=== PATIENT | male | born 1970 | race Caucasian/White ===

== ENCOUNTER 2023-01-11 09:38 | Emergency (ER) | payer OTHER, SELFPAY ==
[2023-01-11 09:48] VITALS: BP 138/106; PULSE 86; RESP 18; TEMP 36.8; O2SAT 98; BMI 32.9
--- NOTE | 2023-01-11 09:59 | XR_ITS ---
The [address] [address] Patient Name: COLEEN Aguillon GILMAR MRN: [id number] date: 1970 Sex: M Assigned Patient Location: ER Current Patient Location: ER Accession/Order Number: [id number] Exam Date: 01/11/2023 10:03 Report Date: 01/11/2023 10:35 At the request of: LALO LAN Procedure: XR ribs LT min 3V w CXR1V EXAMINATION: XR ribs LT min 3V w CXR1V HISTORY: left ribs ; posterior left rib pain with deep inspiration since injury 6 days ago COMPARISON: No relevant comparison available. FINDINGS: LUNGS: No significant pulmonary parenchymal abnormalities. PLEURA: No pneumothorax, effusion, or pleural thickening. MEDIASTINUM: No visible mass or adenopathy. CARDIAC: No cardiomegaly or cardiac silhouette abnormality. RIBS: Mildly displaced lateral left ninth rib fracture and suspected nondisplaced lateral left 10th rib fracture. OTHER: Negative. XR/XR ribs LT min 3V w CXR1V IMPRESSION: 1. Acute, mildly displaced left ninth rib fracture and suspected nondisplaced 10th rib fracture. 2. No pneumothorax or pleural effusion. Electronically authenticated by: SCOUT BEARDEN Date: 01/11/2023 10:35
--- NOTE | 2023-01-11 10:02 | ED.GENADUL1 ---
HPI - General Adult General Chief complaint: Extremity Injury, Upper Stated complaint: BACK PAIN Time Seen by Provider: 01/11/23 09:52 Mode of arrival: walk-in Limitations: no limitations History of Present Illness HPI narrative: Patient is a 52-year-old male who is presenting to the Emergency Room with chief complaint of left lower lateral rib pain that occurred on Saturday, January 06. Patient is playing basketball, patient had slipped landing on a small cement planter. Patient fell to the ground. Patient denied his head. No headache or neck pain. Patient does have left lateral rib pain over ribs approximately 7-9. Patient has mild ecchymosis to the area. Patient's been having sharp pain since. Pain with deep inspiration. Patient took 40 mg of Motrin this morning, patient took several doses of Motrin at that occurred. Patient's intermittently been taking Motrin since. Patient has intermittently but not really used any ice. Patient does have a history of blood pressure and thyroid. Patient does not feel extremities short of breath, only pain when he takes a deep inspiration. No dull pain, nausea vomiting. No cough, no hemoptysis, no melena, hematochezia. No hematuria. . All systems are negative except as noted/marked. All systems reviewed and otherwise negative. . Nurses note and vital signs reviewed and patient is not hypoxic. General: The patient appears well and in no apparent distress. Patient is resting comfortably on cart. Patient is not toxic, lethargic, or listless Skin: Warm, dry, no pallor noted. There is no rash noted. No petechiae, purpura. Head: Normocephalic, atraumatic Eye: Normal conjunctiva, no drainage, EOMI. PERRL Ears, Nose, Mouth, and Throat: oral mucosa is moist. Nares patent. Mouth without vesicles. Cardiovascular: Regular Rate and Rhythm, no murmur, gallop, rub Respiratory: Patient is in no distress, no accessory muscle use, lungs are clear to auscultation, no wheezing, rales or rhonchi. Patient does have splinting, mild ecchymosis to the left lateral chest wall, over ribs approximately 7-9. Pinpoint pain. Patient does have reproducible left lateral chest wall pain with deep palpation to the left anterior and left posterior chest wall. Back: non-tender, no CVA tenderness bilaterally to percussion. No CT LS midline pain. GI: soft, no tenderness to palpation, no masses appreciated. No rebound, guarding, or rigidity noted. No flank pain bilateral, No distention Musculoskeletal: Patient has full range of motion of all of the extremities, no motor, sensory, or focal neurological deficits Neurological: A&O x3, normal speech Psychiatric: Cooperative Related Data Previous Rx's Medication Instructions Recorded hydrocodone 5 mg-acetaminophen 325 1 tab PO Q4H PRN pain #10 tabs 01/11/23 mg tablet Allergies Allergy/AdvReac Type Severity Reaction Status Date / Time No Known Drug Allergies Allergy Verified 01/11/23 09:46 PFSH PFSH Social History Smoking status: Current every day smoker Exam Constitutional Vital Signs, click to edit/add: Last Vital Signs Temp 98.2 F 01/11/23 09:48 Pulse 86 01/11/23 09:48 Resp 18 01/11/23 09:48 BP 138/106 H 01/11/23 09:48 Pulse Ox 98 01/11/23 09:48 O2 Del Method Room Air 01/11/23 09:48 Course Vital Signs Vital signs: Vital Signs Temperature 98.2 F 01/11/23 09:48 Pulse Rate 86 01/11/23 09:48 Respiratory Rate 18 01/11/23 09:48 Blood Pressure 138/106 H 01/11/23 09:48 Pulse Oximetry 98 01/11/23 09:48 Oxygen Delivery Method Room Air 01/11/23 09:48 Temperature 98.2 F 01/11/23 09:48 Pulse Rate 86 01/11/23 09:48 Respiratory Rate 18 01/11/23 09:48 Blood Pressure 138/106 H 01/11/23 09:48 Pulse Oximetry 98 01/11/23 09:48 Oxygen Delivery Method Room Air 01/11/23 09:48 Medical Decision Making MDM Narrative Medical decision making narrative: Patient's x-ray shows fracture to the 9th rib, possibly 10th for this well. Patient had ice applied. Patient took his own Tylenol Motrin in the Emergency Room. Patient was educated on using ice, incentive spirometer, and using Tylenol every 4 hours along with Motrin every 8 hours. Patient understands not to use Tylenol and [place] together. Patient understands [place] could cause constipation. Patient is aware that ribs take a few months to heal, and this will hurt another 3-4 weeks. No questions at discharge. Discharge Plan Discharge Chief Complaint: Extremity Injury, Upper Clinical Impression: Multiple rib fractures Patient Disposition: Home, Self-Care Condition: Fair Prescriptions / Home Meds: New hydrocodone-acetaminophen 5-325 mg tablet 1 tab PO Q4H PRN (Reason: pain) Qty: 10 0RF Instructions: How to Use an Incentive Spirometer (ED), Rib Fracture (ED) Additional Instructions: Follow directions Mr. Kendall. :} Use Tylenol 500?1000 milligrams every 4 hours as needed for pain. Next dose of Tylenol 3000 mg daily. Use Motrin 800 mg 3 times a day with food or drink every 8 hours. Continue to use ice 20 minutes on, 20 minutes off the next 1-2 weeks as needed for pain. Do not use heat. Use pain medication as needed, did not take the [place] pain medication with Tylenol, he will axially take too much Tylenol. Use incentive spirometer every hour while awake Follow-up with PCP Stand Alone Forms: Portal Instructions Referrals: AMIE WANG [Primary Care Provider] - 1 week
== END 2023-01-11 11:03 | disposition home or self-care (01) ==
PROVIDERS: Emergency Provider Emergency Medicine; PCP Family Medicine
DX: S22.42XA Multiple fractures of ribs, left side, initial encounter for closed fracture (principal); W01.198A Fall on same level from slipping, tripping and stumbling with subsequent striking against other object, initial encounter; Y93.67 Activity, basketball; F17.210 Nicotine dependence, cigarettes, uncomplicated
CPT/HCPCS: 71101; 99283

== ENCOUNTER 2023-02-18 15:40 | Outpatient (OUT) | payer OTHER, SELFPAY ==
[2023-02-20 04:07] LABS: Ceruloplasmin 25.8 mg/dL (16.0-31.0); Immunoglobulin G, Qn 1041 mg/dL (603-1613)
[2023-02-20 05:07] LABS: HCV Ab Non Reactive (Non Reactive)
[2023-02-20 06:09] LABS: HBsAg Screen Negative (Negative); Hep A Ab, Total Negative (Negative); Hep B Core Ab, IgM Negative (Negative); Hep B Core Ab, Tot Negative (Negative); Hepatitis B Surf Ab Quant <3.1 mIU/mL (Immunity>9.9)
[2023-02-20 12:09] LABS: ANA Direct Negative (Negative)
[2023-02-20 15:10] LABS: Actin (Smooth Muscle) Antibody 6 Units (0-19)
[2023-02-22 17:14] LABS: Alpha-1-Antitrypsin, Serum 139 mg/dL (101-187)
== END 2023-02-18 15:41 | disposition home or self-care (01) ==
LOC: LAB 15:41
PROVIDERS: PCP Family Medicine
DX: K75.81 Nonalcoholic steatohepatitis (NASH) (principal)
CPT/HCPCS: 36415; 81256; 82103; 82104; 82390; 82728; 82784; 83516; 86038; 86376; 86704; 86705; 86706; 86708; 86709; 86803; 87340

== ENCOUNTER 2023-09-30 14:21 | Outpatient (OUT) | payer OTHER, SELFPAY ==
--- NOTE | 2023-09-30 15:56 | P.CN_ITS ---
Consult Note: HPI Data of Consult Patient: new to practice Consult date: 09/30/23 Requesting Physician: Dominique Vo MD Primary Care Provider: AMIE WANG Consult Narrative Reason for consult: neck pain, headaches Narrative: 52yom who presents for evaluation. several years of neck pain and headaches. 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 engaged in >6 weeks of provider directed home exercises, with minimal relief. uses otc pain meds, as needed. cc:: CC: Dominique Vo MD Review of Systems ROS Status of ROS 10 or more systems reviewed and unremark able except as noted in history and below PFSH PFSH Social History Smoking status: Current every day smoker Meds Home Medications and Allergies Home Medications ?Medication ?Instructions ?Recorded ?Confirmed ?Type hydrocodone 5 mg-acetaminophen 325 1 tab PO Q4H PRN pain #10 tabs 01/11/23 Rx mg tablet Allergies Allergy/AdvReac Type Severity Reaction Status Date / Time No Known Drug Allergies Allergy Verified 01/11/23 09:46 Exam Narrative Exam Narrative: Psych-alert and oriented x 3.? Attentive and appropriate, constitutionally normal, displays normal mood and affect per situation.? There are no obvious deficits in memory, reasoning, or intellect.? Skin-no obvious rashes, bruising, or erythema noted to the patient's area of pain. Extremities-upper extremities are warm with minimal edema and palpable pulses. Cervical- tenderness to palpation noted in the cervical spine and paraspinal musculature.? Pain is elicited with extension, and lateral rotation of the cervical spine.? Range of motion is slightly diminished due to pain. Facet loading maneuvers are positive bilaterally.? Coordination remains intact.? Gait remains non-antalgic. Assessment and Plan Assessment and Plan (1) Cervical spondylosis: Plan 52yom who presents for evaluation. failed conservative measures, as noted. given worsening symptoms, will order cervical xr with consideration of cervical dmrs in future. meds reviewed, no changes. follow up after imaging.
== END 2023-09-30 14:22 | disposition home or self-care (01) ==
LOC: PM 14:22
PROVIDERS: PCP Family Medicine; Visit Provider Anesthesiology
DX: M47.812 Spondylosis without myelopathy or radiculopathy, cervical region (principal)
CPT/HCPCS: G0463

== ENCOUNTER 2023-10-04 14:56 | Outpatient (OUT) | payer OTHER, SELFPAY ==
--- NOTE | 2023-10-04 15:03 | XR_ITS ---
The [address] [address] Patient Name: COLEEN KNAPPTER MRN: [facility]:[id number] date: 1970 Sex: M Assigned Patient Location: [facility] Current Patient Location: Accession/Order Number: [id number] Exam Date: 10/04/2023 15:09 Report Date: 10/07/2023 07:03 At the request of: GISELA LARAVIJAYA Procedure: XR cervical spine 5V EXAMINATION: XR cervical spine 5V HISTORY: cervicalgia , chronic COMPARISON: XR C-spine 11/30/2020 FINDINGS: BONES: Osseous fusion of C3-4 and 5 vertebral bodies and posterior elements of C3-4. DISC SPACES: See above. No appreciable significant narrowing at remaining levels. PARASPINOUS: Negative. No paraspinous abnormality is seen. OTHER: Negative. XR/XR cervical spine 5V IMPRESSION: 1. Grossly stable chronic changes. No appreciable acute abnormality. Electronically authenticated by: SCOUT BEARDEN Date: 10/07/2023 07:03
== END 2023-10-04 14:57 | disposition home or self-care (01) ==
LOC: RAD 14:58
PROVIDERS: PCP Family Medicine; Visit Provider Anesthesiology
DX: M54.2 Cervicalgia (principal)
CPT/HCPCS: 72050

== ENCOUNTER 2023-10-16 14:23 | Outpatient (OUT) | payer OTHER, SELFPAY ==
--- NOTE | 2023-10-16 14:58 | P.CN_ITS ---
Consult Note: HPI Data of Consult Patient: known to practice within the last 3 years Consult date: 09/30/23 Requesting Physician: Marianne Head NP Primary Care Provider: AMIE WANG Consult Narrative Reason for consult: neck pain, headaches Narrative: 52yom who presents for evaluation. several years of neck pain and headaches. 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 engaged in >6 weeks of provider directed home exercises, with minimal relief. uses otc pain meds, as needed. most recent xray consistent with cervical facet arthropathy. patient denies numbness tingling radicular pain. Pain today 4/10, increasing to 10/10. cc:: CC: Marianne Head NP Review of Systems ROS Status of ROS 10 or more systems reviewed and unremark able except as noted in history and below PFSH PFSH Social History Smoking status: Current every day smoker Meds Home Medications and Allergies Home Medications ?Medication ?Instructions ?Recorded ?Confirmed ?Type levothyroxine 175 mcg capsule 175 mcg PO DAILY 09/30/23 09/30/23 History metoprolol succinate 25 mg 25 mg PO DAILY 09/30/23 09/30/23 History tablet,extended release 24 hr Allergies Allergy/AdvReac Type Severity Reaction Status Date / Time No Known Drug Allergies Allergy Verified 09/30/23 16:07 Exam Narrative Exam Narrative: Psych-alert and oriented x 3.? Attentive and appropriate, constitutionally normal, displays normal mood and affect per situation.? There are no obvious deficits in memory, reasoning, or intellect.? Skin-no obvious rashes, bruising, or erythema noted to the patient's area of pain. Extremities-upper extremities are warm with minimal edema and palpable pulses. Cervical- tenderness to palpation noted in the cervical spine and paraspinal mus culature.? Pain is elicited with extension, and lateral rotation of the cervical spine.? Range of motion is slightly diminished due to pain. Facet loading maneuvers are positive bilaterally.? Coordination remains intact.? Gait remains non-antalgic. Results Additional Findings Additional findings: If on a controlled substance or opioids, I have checked an [place] report on this patient and there are no aberrancies noted in the prescribing history.??If on a controlled substance or opioid a drug screen was completed and reviewed within the last year, and if there has not been a drug screen completed we ordered one today to monitor higher risk, state monitored pain medication use. As part of providing excellent, safe, comprehensive care, the following was completed at our patient's visit: 1. A medication reconciliation and review to ensure accurate knowledge of current/active medications, including asking our patients to inform us about any [id number] medications or herbal remedies/nutritional supplements/alternative remedies. 2. A review to specifically ensure our patients have had annual screening for screening for depression, screening for tobacco use, and screening for unhealthy alcohol use. For concerning screenings had a discussion with the patient, provided patient education, and recommended follow-up with primary care provider when appropriate. If patient noted with a risk of falling, they received education on strength, gait, and balance training to prevent future risk of falling. Assessment and Plan Assessment and Plan (1) Cervical spondylosis: Assessment and Plan: The patient has had over 3 months of moderate to severe neck and headache pain with functional impairment and inadequate response to conservative care including NSAIDS (unless there are contraindication such as concurrent blood thinners), multiple oral or topical pain medications, and home exercise program/physical therapy.? Patient has completed >6 weeks of guided home exercise program and/or formal physical therapy program without relief of their symptoms.? I have reviewed the imaging of the cervical spine and no red flags were identified.? The imaging reveals radiographic findings consistent with cervical spondylosis/facet arthropathy We discussed the risks and benefits of the procedure with the patient, and we are NOT planning on using sedation as outlined in the guidelines from Medicare unless there is a documented reason that sedation would be strongly recommended.?? ?The procedure will be completed with fluoroscopic guidance.? Plan bilateral C2-3 C3-4 facet medial branch block x2 working towards RFA f/u 1 week after each injection
== END 2023-10-16 14:24 | disposition home or self-care (01) ==
LOC: PM 14:25
PROVIDERS: PCP Family Medicine; Visit Provider Nurse Practitioner
DX: M47.812 Spondylosis without myelopathy or radiculopathy, cervical region (principal)
CPT/HCPCS: G0463

== ENCOUNTER 2023-11-11 08:34 | Day surgery (SDC) | payer OTHER, SELFPAY ==
[2023-11-11 08:49] VITALS: BP 146/86; PULSE 84; TEMP 36.7; O2SAT 99
[2023-11-11 09:14] VITALS: PULSE 89; O2SAT 95
[2023-11-11 09:15] VITALS: BP 163/83
[2023-11-11 09:16] VITALS: BP 158/91; PULSE 87; O2SAT 96
[2023-11-11] MEDS: LIDOCAINE HCL 2% PF 100 MG/5 ML VIAL INJ (09:17)
[2023-11-11] MEDS: BUPIVACAINE HCL 0.25% PF 25 MG/10 ML VIAL INJ (09:17)
--- NOTE | 2023-11-11 09:24 | W.PM.PROCNOT ---
Date of procedure: 11/11/23 Pre-op diagnosis: Cervical spondylosis Post-op diagnosis: same as pre-op Procedure: Procedure: Bilateral C2-3, 3-4 medial branch block Medications: Bupivacaine 0.25% 6cc The patient was seen and examined in the preoperative holding area.? The informed consent was obtained and placed on the chart.? The patient was brought to the medical procedure unit and placed in the prone position.? A timeout was completed verifying correct patient, procedure site, positioning, plan, and special equipment.? Using aseptic technique, the needle was placed at left C2.? Under direct fluoroscopic visualization, a Quincke tip needle was advanced to the midpoint of the waist of the articular pillar at the respective medial branch segment. The above-mentioned injectate was placed in a 1 mL aliquot proceeded by negative aspiration.? The needle was removed.? The procedure was completed at all left C3, 4. The same procedure, at the same levels, was then completed on the right side. Insertion site was covered.? Patient was taken to the postprocedural recovery area and monitored for an appropriate length of time before found suitable for discharge in the accompaniment of a responsible adult. Anesthesia: Local Surgeon: Dominique Vo Pathology: none sent Condition: stable Disposition: no change
== END 2023-11-11 09:28 | disposition home or self-care (01) ==
LOC: SURGOUT 08:35
PROVIDERS: PCP Family Medicine; Visit Provider Anesthesiology
DX: M47.812 Spondylosis without myelopathy or radiculopathy, cervical region (principal)
CPT/HCPCS: 64490; 64491

== ENCOUNTER 2023-11-20 15:06 | Outpatient (OUT) | payer OTHER, SELFPAY ==
--- NOTE | 2023-11-20 15:22 | P.CN_ITS ---
Consult Note: HPI Data of Consult Patient: known to practice within the last 3 years Consult date: 09/30/23 Requesting Physician: Marianne Head NP Primary Care Provider: AMIE WANG Consult Narrative Reason for consult: neck pain, headaches Narrative: 52yom who presents for evaluation. several years of neck pain and headaches. 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 engaged in >6 weeks of provider directed home exercises, with minimal relief. uses otc pain meds, as needed. most recent xray consistent with cervical facet arthropathy. patient denies numbness tingling radicular pain. Pain today 4/10, increasing to 10/10. Recently underwent bilateral C2-3 C3-4 MBB #1 with >80% improvement in pain and functional ability greater than 4 hours. cc:: CC: Marianne Head NP Review of Systems ROS Status of ROS 10 or more systems reviewed and unremark able except as noted in history and below Musculoskeletal Reports: neck pain PFSH PFSH Medical History Diverticulitis ?K57.92 - Diverticulitis of intestine, part unspecified, without perforation or abscess without bleeding (ICD-10) Surgical History H/O thyroidectomy ?E89.0 - Postprocedural hypothyroidism (ICD-10) Social History Smoking status: Current every day smoker Meds Home Medications and Allergies Home Medications ?Medication ?Instructions ?Recorded ?Confirmed ?Type levothyroxine 175 mcg capsule 175 mcg PO DAILY 09/30/23 11/11/23 History metoprolol succinate 25 mg 25 mg PO DAILY 09/30/23 11/11/23 History tablet,extended release 24 hr Allergies Allergy/AdvReac Type Severity Reaction Status Date / Time No Known Drug Allergies Allergy Verified 11/11/23 08:45 Exam Narrative Exam Narrative: Psych-alert and oriented x 3.? Attentive and appropriate, constitutionally normal, displays normal mood and affect per situation.? There are no obvious deficits in memory, reasoning, or intellect.? Skin-no obvious rashes, bruising, or erythema noted to the patient's area of pain. Extremities-upper extremities are warm with minimal edema and palpable pulses. Cervical- tenderness to palpation noted in the cervical spine and paraspinal musculature.? Pain is elicited with extension, and lateral rotation of the cervical spine.? Range of motion is slightly diminished due to pain. Facet loading maneuvers are positive bilaterally.? Coordination remains intact.? Gait remains non-antalgic. Constitutional Documenting provider has reviewed patient's vital signs: yes Common normals: no apparent distress, oriented x3, healthy appearing, alert and well nourished General appearance: cooperative HENMT Common normals: normocephalic, hearing grossly normal bilaterally and moist oral mucous membranes Head and scalp: normocephalic Eye Common normals: PERRL Pupil: PERRL Neck & C-Spine Common normals: full ROM General: normal visual inspection Chest Common normals: inspection of chest normal Respiratory Common normals: normal respiratory effort, no retractions and no use of accessory muscles Neuro Common normals: oriented x3, CN's II-XII intact bilaterally, moves all extremities, no focal motor deficits, no sensory deficits noted and deep tendon reflexes 2+ bilaterally Sensorium/orientation: alert Motor exam: strength 5/5 throughout and no movement abnormalities noted Psych Common normals: mental status grossly normal, thought process normal, cooperative, affect normal, speech normal and activity/motor behavior normal Speech: normal speech Thought process: normal thought process Results Additional Findings Additional findings: If on a controlled substance or opioids, I have checked an [place] report on this patient and there are no aberrancies noted in the prescribing history.??If on a controlled substance or opioid a drug screen was completed and reviewed within the last year, and if there has not been a drug screen completed we ordered one today to monitor higher risk, state monitored pain medication use. As part of providing excellent, safe, comprehensive care, the following was completed at our patient's visit: 1. A medication reconciliation and review to ensure accurate knowledge of current/active medications, including asking our patients to inform us about any doqa-nvp-[id number] medications or herbal remedies/nutritional supplements/alternative remedies. 2. A review to specifically ensure our patients have had annual screening for screening for depression, screening for tobacco use, and screening for unhealthy alcohol use. For concerning screenings had a discussion with the patient, provided patient education, and recommended follow-up with primary care provider when appropriate. If patient noted with a risk of falling, they received education on strength, gait, and balance training to prevent future risk of falling. Assessment and Plan Assessment and Plan (1) Cervical spondylosis: Assessment and Plan: The patient has had over 3 months of moderate to severe neck and headache pain with functional impairment and inadequate response to conservative care including NSAIDS (unless there are contraindication such as concurrent blood thinners), multiple oral or topical pain medications, and home exercise program/physical therapy.? Patient has completed >6 weeks of guided home exercise program and/or formal physical therapy program without relief of their symptoms.? I have reviewed the imaging of the cervical spine and no red flags were identified.? The imaging reveals radiographic findings consistent with cervical spondylosis/facet arthropathy We discussed the risks and benefits of the procedure with the patient, and we are NOT planning on using sedation as outlined in the guidelines from Medicare unless there is a documented reason that sedation would be strongly recommended.?? ?The procedure will be completed with fluoroscopic guidance.? Plan bilateral C2-3 C3-4 facet medial branch block x2 working towards RFA f/u after each injection
== END 2023-11-20 15:07 | disposition home or self-care (01) ==
PROVIDERS: PCP Family Medicine; Visit Provider Nurse Practitioner
DX: M47.812 Spondylosis without myelopathy or radiculopathy, cervical region (principal)
CPT/HCPCS: G0463

== ENCOUNTER 2023-12-16 07:09 | Day surgery (SDC) | payer OTHER, SELFPAY ==
--- OUTSIDE RECORDS SUMMARY | 2023-12-16 07:12 | XMS_ITS | CCD ---
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 Name Role Phone PEREZ ., DR ANA Singletary Admitting Unavailable ROSADO ., DR ANA Singletary Attending Unavailable ROSADO ., DR ANA Singletary Primary Care Unavailable ROSADO ., DR ANA Singletary Consulting Unavailable HARSHIL AVILES Consulting Unavailable ROSADO ., DR ANA Singletary Admitting Unavailable ROSADO ., DR ANA Singletary Attending Unavailable ROSADO ., DR ANA Singletary Primary Care Unavailable ROSADO ., DR ANA Singletary Consulting Unavailable ROSADO ., DR ANA Singletary Admitting Unavailable ROSADO ., DR ANA Singletary Attending Unavailable ROSADO ., DR ANA Singletary Primary Care Unavailable ROSADO ., DR ANA Singletary Consulting Unavailable Asaad Imad Unavailable MD Lory Akers Attending Provider MD Junior Sinclair Primary Care Provider [phone] Lory Akers Attending Unavailable Lory Akers Admitting Unavailable Junior Sinclair Primary Care Unavailable Tavo PRABHAKAR, Dominique Laughlin Attending Unavailable Tavo PRABHAKAR, Dominique Laughlin Attending Unavailable Génesis Voss Attending Unavailable Junior Sinclair Attending Unavailable Junior Sinclair Attending Unavailable Génesis Voss Attending Unavailable Génesis Voss Attending Unavailable Junior Sinclair Attending Unavailable Génesis Voss Attending Unavailable Junior Sinclair Attending Unavailable Sarah Beard Admitting Unavaila ble Sarah Beard Attending Unavaila ble Sarah Beard Referring Unavaila ble Junior Sinclair Admitting Unavailable Junior Sinclair Attending Unavailable Junior Sinclair Referring Unavailable Sarah Beard Attending Unavaila ble Sarah Beard Attending Unavaila ble Allergies Allergy Classification Reported Allergen(s) Allergy Type Date of Onset Reaction(s) Facility (1 source) OXcarbazepine; Translations: [OXcarbazepine] Drug Allergy [facility] Repository (1 source) Pollen; Translations: [Pollen] Propensity to adverse reactions (disorder) [facility] Repository (1 source) Sertraline; Translations: [Zoloft] Drug Allergy [facility] Repository Medications Current Medications Medication Drug Class(es) Dates Sig (Normalized) Sig (Original) ibuprofen 800 mg oral tablet (1 source) Nonsteroidal Anti-inflammatory Drug Start: 01-10-2019 take 800 mg by mouth three times daily Ibuprofen Active 800 MG PO Three times daily January 10, 2019 12:00am levothyroxine sodium 0.175 mg oral tablet (2 sources) l-Thyroxine Start: 01-10-2019 take 175 ug by mouth once daily Levothyroxine Active 175 MCG PO Daily January 10, 2019 12:00am metoprolol tartrate 25 mg oral tablet (1 source) beta-Adrenergic Magnolia take 1 tablet by mouth once daily Metoprolol Succinate ER 25 MG 1 tablet Orally Once a day Active Completed/Discontinued Medications Medication Drug Class(es) Dates Sig (Normalized) Sig (Original) aspirin 81 mg chewable tablet (1 source) Platelet Aggregation Inhibitor, Nonsteroidal Anti-inflammatory Drug take 1 tablet by mouth once daily Aspirin 81 MG 1 tablet Orally Once a day Not-Taking Problems Active Problems Problem Classification Problem Date Documented Date Episodic/Chronic Hepatitis (1 source) Nonalcoholic steatohepatitis (CAGLE); Translations: [CAGLE (nonalcoholic steatohepatitis)] Chronic Other injuries and conditions due to external causes (1 source) Minor head injury; Translations: [Unspecified injury of head, initial encounter] 01-10-2019 Episodic Other injuries and conditions due to external causes (1 source) Abrasion; Translations: [Other injury of unspecified body region, initial encounter] 01-10-2019 Episodic Other liver diseases (2 sources) Fatty (change of) liver, not elsewhere classified; Translations: [FATTY CHANGE LIVER NEC] Onset: 07-03-2022 Chronic Other liver diseases (1 source) Steatosis of liver; Translations: [Fatty (change of) liver, not elsewhere classified] Chronic Other liver diseases (1 source) Abnormal levels of other serum enzymes Episodic Unclassified (1 source) Nonalcoholic steatohepatitis (CAGLE); Translations: [Nonalcoholic steatohepatitis (CAGLE)] Onset: 02-21-2023 Past or Other Problems Problem Classification Problem Date Documented Da te Episodic/Chronic Other screening for suspected conditions (not mental disorders or infectious disease) (4 sources) Other specified abnormal findings of blood chemistry; Translations: [OTH SPEC ABNORMAL FINDINGS BLD CHEM] Onset: 06-29-2022 Episodic Results Test Name Value Interpretation Reference Range Facility Consultation Noteon 11-26-19 Consultation Note [id number]#1.00TIFF Normal [facility] Reminderson 11-14-2023 Reminders - From: Cipriano Bedolla To: [facility] - Reminders/Recalls; Sent: 11/14/2023 17:20:52 EDT Show up: 10/08/2026 17:20:00 EDT Subject: Ambulatory Reminder Due Date/Time: 10/31/2026 17:20:00 EDT Reminder/Recall Repeat colonoscopy in 3 years(2026) due to tubular adenoma > 10 mm Normal [facility] Consultation Noteon 11-11-19 Consultation Note [id number]#1.00TIFF Normal [facility] Consultation Note [id number]#1.00TIFF Normal [facility] Operative Reporton Operative Report [id number]#1.00TIFF Normal [facility] Postoperative Documentson Postoperative Documents [id number]#1.00TIFF Normal [facility] IntraOperative Documentson 0 11-06-2023 IntraOperative Documents [id number]#1.00TIFF Normal [facility] Consenton 11-05-2023 Consent [id number]#1.00TIFF Normal [facility] Discharge Instructionson Discharge Instructions [id number]#1.00TIFF Normal [facility] Consent for Treatmenton 10-09 Consent for Treatment [id number]#1.00TIFF Normal [facility] Discharge Instructionson Discharge Instructions ADARSH SCHAFER Pal :1970 Visit Date:11/01/2023 Inpatient Discharge Instructions Your Care Team Admitting Physician - Sarah Beard MD Referring Physician - Chirag PRABHAKAR, Sarah Barajas Reason for Your Visit CAGLE FATTY LIVER CHRONIC GERD Your Diagnosis Chronic GERD Colon cancer screening Tests Performed Pathology Tissue Exam -- Results Pending -- Please visit your patient portal for your results or contact your primary care physician. This Is Your Medications List levothyroxine (levothyroxine 175 mcg (0.175 mg) Tab) metoprolol (metoprolol 25 mg ER Tab) Procedure History Thyroidectomy (02/13/2018), Diverticulitis, Entire wisdom tooth, tongue and throat biopsy. Discharge Vitals Temperature (Temporal Artery) 36.3 ?C Heart Rate (Monitored) 79 Respiratory Rate 13 Blood Pressure 132/84 Height 182 cm Weight 94.3 kg What to do next Instructions From Your Doctor Event Name Event Result Discharge Activity Resume normal activities in 24 hours Discharge Restrictions No driving for 24 hrs Discharge Diet(s) Regular Call Your Doctor For Persistent or heavy bleeding Discharge Instructions Discharge Instructions Previously Scheduled Follow-Up Appointments Saturday 2:00 PM EDT Where: [facility] New Follow Up Appointments after Discharge Follow Up with Sarah Beard When: Comments: office will call for follow up Where: Timbo Solano, [facility] [address] [phone] Business (1) Medications What How Much When Instructions Next Dose Unchanged levothyroxine (levothyroxine 175 mcg (0.175 mg) Tab) 1 Tablets By Mouth Every day Unchanged metoprolol (metoprolol 25 mg ER Tab) 1 Tablets By Mouth Every day Test Results No qualifying data available. Allergies OXcarbazepine (Unknown) Pollen (Unknown) Zoloft (Unknown) Problems Ongoing - Any problem that you are currently receiving treatment for. Ankylosis Anxiety Cervical radiculopathy, chronic Diverticulitis Primary hypertension Psoriasis Seasonal allergies Sinusitis Steatosis, liver Thyroid disease Tinnitus of left ear Devices Implanted/Removed This Visit Notice: You have devices implanted this visit that may not be MRI compatible. Implanted Undefined Procedure Body Site Undefined CAUTERY ERBE UNIT 11/01/2023 CAUTERY ERBE UNIT 11/01/2023 Education Materials Upper Endoscopy, Adult, Care After After the procedure, it is common to have a sore throat. It is also common to have: ? Mild stomach pain or discomfort. ? Bloating. ? Nausea. Follow these instructions at home: The instructions below may help you care for yourself at home. Your health care provider may give you more instructions. If you have questions, ask your health care provider. ? If you were given a sedative during the procedure, it can affect you for several hours. Do not drive or operate machinery until your health care provider says that it is safe. ? If you will be going home right after the procedure, plan to have a responsible adult: ? Take you home from the hospital or clinic. You will not be allowed to drive. ? Care for you for the time you are told. ? Follow instructions from your health care provider about what you may eat and drink. ? Return to your normal activities as told by your health care provider. Ask your health care provider what activities are safe for you. ? Take dzkx-mcb-tzgyilo and prescription medicines only as told by your health care provider. Contact a health care provider if you: ? Have a sore throat that lasts longer than one day. ? Have trouble swallowing. ? Have a fever. Get help right away if you: ? Vomit blood or your vomit looks like coffee grounds. ? Have bloody, black, or tarry stools. ? Have a very bad sore throat or you cannot swallow. ? Have difficulty breathing or very bad pain in your chest or abdomen. These symptoms may be an emergency. Get help right away. Call 911. ? Do not wait to see if the symptoms will go away. ? Do not drive yourself to the hospital. Summary ? After the procedure, it is common to have a sore throat, mild stomach discomfort, bloating, and nausea. ? If you were given a sedative during the procedure, it can affect you for several hours. Do not drive until your health care provider says that it is safe. ? Follow instructions from your health care provider about what you may eat and drink. ? Return to your normal activities as told by your health care provider. This information is not intended to replace advice given to you by your health care provider. Make sure you discuss any questions you have with your health care provider. Document Revised: 09/05/2022 Document Reviewed: 09/05/2022 [employer] Patient Education ? 2022 [employer] Sinclair's Esophagus (more content not included)... Normal [facility] Comment on above: Result Comment: Elec tronically Signed By: Sherice WEST, Tanya\.br\Date and Time Signed: 11/01/23 10:36 EDT Endoscopic Procedure Report - Otheron 11-01-2023 Endoscopic Procedure Report - Other Patient: ADARSH SCHAFER Age: 53 years Sex: Male : 1970 Associated Diagnoses: None Author: Sarah Beard MD Pre-Procedure Procedure Date 11/01/2023 10:23:00 . Procedure Type: Colonoscopy with removal of tumor(s), polyp(s), or other lesion(s) by cold snare technique. Procedure provider Performed by Sarah Beard MD. Current history and physical Documented on chart. Thyroidectomy ([id number]) on 02/13/2018 at 47 Years. Entire wisdom tooth ([id number]). Diverticulitis surgery (256155317). tongue and throat biopsy.. Past Medical History No active or resolved past medical history items have been selected or recorded.. Family History Hypertension Father . Procedure History Thyroidectomy ([id number]) on 02/13/2018 at 47 Years. Entire wisdom tooth (445756190). Diverticulitis surgery (109544503). tongue and throat biopsy.. Colorectal neoplasm risk assessment Average risk. Informed Consent After discussing the rationale, risks and benefits, and alternatives to this procedure, the patient provided signed consent for the procedure. Pre-procedure diagnosis: Screening. Medications (Selected) Inpatient Medications Ordered Lactated Ringers IV Araseli 1000 mL 1,000 mL: 1,000 mL, IV, 100 mL/hr, Routine, Start date 11/01/23 9:21:00 EDT, 10 hour(s), Total volume (mL): 1,000, 94.3 kg, 2.18, m2 Sodium Chloride 0.9% IV Araseli 1000 mL 1,000 mL: 1,000 mL, IV, 20 mL/hr, Routine, Start date 11/01/23 6:48:00 EDT, 50 hour(s), Total volume (mL): 1,000 Prescriptions Prescribed levothyroxine 175 mcg (0.175 mg) Tab: 175 mcg = 1 tab(s), Oral, Daily, # 90 EA, Refills(s) 1, [id number] 158, cm, 08/29/23 7:21:00 EDT, Height/Length Dosing, 94.2, kg, 08/29/23 7:21:00 EDT, Weight Dosing metoprolol 25 mg ER Tab: 25 mg = 1 tab(s), Oral, Daily, # 90 tab(s), Refills(s) 1, Pharmacy: [facility]/pharmacy #[id number], 158, cm, 08/29/23 7:21:00 EDT, Height/Length Dosing, 94.2, kg, 08/29/23 7:21:00 EDT, Weight Dosing Reviewed. ASA Classification: Class II. . Monitoring: See anesthesia record. . Procedure The procedure was performed in the hospital. See anesthesia record for sedation given during procedure. The patient was positioned starting in the left lateral decubitus position. Endoscope type used was an adult-size. The endoscope was lubricated then introduced through the anus. The scope was advanced to the terminal ileum. No difficulties encountered during the procedure. The bowel preparation quality was adequate (see polyps greater than or equal to 6 millimeters). The patient tolerated the procedure well. Time to Cecum: 1 min Withdrawal time 22 min Last colonoscopy: none Findings 1. Small internal hemorrhoids 2. 1.5 sessile polyp in the transverse colon at the hepatic flexure, resected using EMR technique, injected 4.5 ml of Everlift and removed using hot snare. I used the tip of the hot snare to burned the edges. 2 clips were placed at the polypectomy site to prevent bleeding at the end of the procedure 3. 5 mm sessile polyp in the transverse colon at the splenic flexure, removed with cold snare completely and retrieved 4. 7 mm sessile polyp in the sigmoid colon, resected with cold snare completely and retrieved 4. Normal examined terminal ileum Images Procedure images: Rec1_hd_video_T09_ 29_13_910.jpg Rec1_hd_video_T_ 28_56_342.jpg Rec1_hd_video_T09_ 26_04_242.jpg Rec1_hd_video__ 24_43_972.jpg Rec1_hd_video__ 24_16_317.jpg Rec1_hd_video_T_ _01_066.jpg Rec1_hd_video_09_ 19_21_810.jpg Rec1_hd_video_09_ 19_18_072.jpg Rec1_hd_video_T09_ 17_56_036.jpg Rec1_hd_video_T09_ 16_52_673.jpg Rec1_hd_video_T09_ 16_47_723.jpg Rec1_hd_video_T09_ 14_18_188.jpg Rec1_hd_video_T09_ 11_53_944.jpg Rec1_hd_video_09_ _36_204.jpg Rec1_hd_video_09_ _29_223.jpg Rec1_hd_video__T09_ _21_998.jpg Rec1_hd_video_09_ _57_345.jpg Rec1_hd_video_T09_ _45_043.jpg Rec1_hd_video_09_ _21_315.jpg Rec1_hd_video_T09_ 09_07_279.jpg . Post-Procedure Complications: non (more content not included)... Normal [facility] Comment on above: Result Comment: Elec tronically Signed By: Chirag PRABHAKAR, Sarah Barajas\.br\Date and Time Signed: 11/01/23 10:25 EDT Other Comment: Sallie temple Attachment - attachment storage system not supported [id number] [facility]achment - attachment storage system not supported [id number] Can be [facility] Attachment - attachment storage system not supported [id number] Can be [facility] Attachment - attachment storage system not supported [id number] Can be [facility] Attachment - attachment storage system not supported [id number] Can be [facility] Attachment - attachment storage system not supported [id number] Can be [facility] Attachment - attachment storage system not supported [id number] Can be [facility] Attachment - attachment storage system not supported [id number] Can be [facility] Attachment - attachment storage system not supported [id number] Can be [facility] Attachment - attachment storage system not supported [id number] Can be [facility] Attachment - attachment storage system not supported [id number] Can be viewed in source systemMissing Attachment - attachment storage system not supported [id number] Can be viewed in source systemMissing Attachment - attachment storage system not supported [id number] Can be viewed in source systemMissing Attachment - attachment storage system not supported [id number] Can be viewed in source systemMissing Attachment - attachment storage system not supported [id number] Can be viewed in source systemMissing Attachment - attachment storage system not supported [id number] Can be viewed in source systemMissing Attachment - attachment storage system not supported [id number] Can be viewed in source systemMissing Attachment - attachment storage system not supported [id number] Can be viewed in source systemMissing Attachment - attachment storage system not supported [id number] Can be viewed in source systemMissing Attachment - attachment storage system not supported [id number] Can be viewed in source system Endoscopic Procedure Report - Other Patient: ADARSH SCHAFER Age: 53 years Sex: Male : 1970 Associated Diagnoses: None Author: Sarah Beard MD Pre-Procedure Procedure Date 11/01/2023 09:56:00 . Procedure Type: Esophagogastroduodenoscopy with biopsy. Procedure provider Performed by Sarah Beard MD. Current history and physical Documented on chart. Informed Consent After discussing the rationale, risks and benefits, and alternatives to this procedure, the patient provided signed consent for the procedure. Pre-procedure diagnosis: GERD. Medications Anticoagulant/antiplatelet None. ASA Classification: Class II. . Monitoring: See anesthesia record. . Procedure The procedure was performed in the hospital. See anesthesia record for sedation given during procedure. The patient was positioned starting in the left lateral decubitus position and with safety measures. Endoscope type used was an adult-size, introduced orally, advanced to the 3rd portion of the duodenum. No difficulty was encountered during the procedure. Views were excellent. The patient tolerated the procedure well. Findings 1. Esophageal landmarks identified, diaphragm at 42 cm, GE junction at 34 cm, 8 cm hiatal hernia 2. 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 Moderate patchy erythema in the antrum with minimal amount of old blood (hematin), random biopsies were taken to rule out H. pylori 4. Normal examined duodenum Images Procedure images: Rec1_hd_video_2023__T09_ 01_01_559.jpg Rec1_hd_video_2023__T08_ 58_32_819.jpg Rec1_hd_video_2023__T08_ 56_42_191.jpg Rec1_hd_video_2023__T08_ 56_22_059.jpg Rec1_hd_video_2023__T08_ 54_53_977.jpg Rec1_hd_video_2023__T08_ 54_47_322.jpg Rec1_hd_video_2023__T08_ 54_41_717.jpg Rec1_hd_video_2023__T08_ 54_24_874.jpg . Post-Procedure Complications: none. Estimated blood loss: minimal. Specimens: sent to pathology. Devices/ implants: none left in place. Impression and Plan 1. Esophageal landmarks identified, diaphragm at 42 cm, GE junction at 34 cm, 8 cm hiatal hernia 2. 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 Moderate patchy erythema in the antrum with minimal amount of old blood (hematin), random biopsies were taken to rule out H. pylori 4. Normal examined duodenum Recommendations: -Resume previous diet -Resume home medications -Await pathology results, follow in GI clinic in 1-2 after discharge Normal [facility] Comment on above: Result Comment: Elec tronically Signed By: Chirag PRABHAKAR, Sarah Barajas\.br\Date and Time Signed: 11/01/23 09:57 EDT Other Comment: Sallie temple Attachment - attachment storage system not supported [id number] Can be viewed in source systemMissing Attachment - attachment storage system not supported [id number] Can be viewed in source systemMissing Attachment - attachment storage system not supported [id number] Can be viewed in source systemMissing Attachment - attachment storage system not supported [id number] Can be viewed in source systemMissing Attachment - attachment storage system not supported [id number] Can be viewed in source systemMissing Attachment - attachment storage system not supported [id number] Can be viewed in source systemMissing Attachment - attachment storage system not supported [id number] Can be viewed in source systemMissing Attachment - attachment storage system not supported [id number] Can be viewed in source system Inpatient Patient Summaryon 11-01-2023 Inpatient Patient Summary [address] [address] [facility] Clinical Discharge Instructions PERSON INFORMATION Name: ADARSH SCHAFER [facility]#:[id number] PHYSICIANS Admitting Physician: Sarah Beard MD Attending Physician: Sarah Beard MD PCP: Junior Sinclair MD Discharge Diagnosis: Chronic GERD; Colon cancer screening Comment: PATIENT EDUCATION INFORMATION Instructions: Upper Endoscopy, Adult, Care After; Sniclair's Esophagus; Gastritis, Adult; Hiatal Hernia; Colonoscopy, Care After Surgery Salam (CUSTOM); Colon Polyps Medication Leaflets: Follow up: With: Address: When: Sarah Beard [address] [place] [address], [address], [place] [id number] [phone] Business (1) Comments: office will call for follow up Type Location Start [facility] 11/15/2023 2:00 PM 11/15/2023 2:20 PM Confirmed MEDICATION LIST Medications to Continue with No Changes Other Medications levothyroxine (levothyroxine 175 mcg (0.175 mg) Tab) 1 Tablets By Mouth every day. Refills: 1. metoprolol (metoprolol 25 mg ER Tab) 1 Tablets By Mouth every day. Refills: 1. Comment: Normal [facility] Main OR Intraoperative Recor don 11-01-2023 Main OR Intraoperative Record IntraOp Document Type FT Summary Primary Physician: Sarah Beard MD Finalized Date/Time: 11/01/23 14:12:04 Pt. Name: ADARSH SCHAFER Pal NicholsB./Sex: 1970 Male Med Rec #: [id number] Physician: Chirag PRABHAKAR, Sarah Barajas Financial #: [id number] Pt. Type: O Room/Bed: / Admit/Disch: 11/01/23 08:25:41 - Institution: Case Times FT Entry 1 Patient Times In Room 11/01/23 09:38:00 Out Room 11/01/23 10:23:00 Procedure Times Start 11/01/23 09:46:00 Stop 11/01/23 10:21:00 Anesthesia Times Start 11/01/23 09:38:00 Stop 11/01/23 10:23:00 Time at Cecum 11/01/23 09:59:00 Last Modified By: Kannan WEST, Isai Singletary 11/01/23 10:24:04 General Comments: 0955 EGD completed MSRN 0958 Colonoscopy started MSRN 11/01/23 Chart opened for charge review per Dany Brunson RN. [place] Case Attendance FT Entry 1 Entry 2 Entry 3 Case Attendee Pearl HENSLEY, Mook Brunner RN, Jayme Mark Role Performed Anesthesiologist Seed Buyer - Primary Staff - Other Cloth Washer Back Tender Time In 11/01/23 09:38:00 11/01/23 09:38:00 11/01/23 09:38:00 Time Out 11/01/23 10:23:00 11/01/23 10:23:00 11/01/23 10:23:00 Procedure EGD AND COLONOSCOPY(.) EGD AND COLONOSCOPY(.) EGD AND COLONOSCOPY(.) Comments Dr. Ochoa is supervising Last Modified By: Kannan WEST, Isai Brunner RN, Isai Brunner RN, Isai Singletary 11/01/23 10:24:05 11/01/23 10:24:05 11/01/23 10:24:05 Entry 4 Entry 5 Case Attendee Patricia CLAY, Joana Beard MD, Sarah Barajas Role Performed Scrub - Primary Surgeon - Primary Time In 11/01/23 09:38:00 11/01/23 09:38:00 Time Out 11/01/23 10:23:00 11/01/23 10:23:00 Procedure EGD AND COLONOSCOPY(.) EGD AND COLONOSCOPY(.) Comments Last Modified By: Isai Brunner RN, RN, Morgan E 11/01/23 10:24:05 11/01/23 10:24:05 Perioperative Protocols FT Pre-Care Text: Implements protective measures prior to operative or invasive procedure, confirms identity before the operative or invasive procedure, verifies operative procedure, surgical site, and laterality Entry 1 Procedure(s) EGD AND COLONOSCOPY(.) Patient Identity Birthday, ID Band Verified (select at Check, Patient least 2): Participation Consents / H and P Anesthesia Consent, Operative Site N/A Verified HandP, Surgery/Procedure Marking Verified Consent Surgical Site No Laterality Verified n/a Verified Procedure Verified Yes Correct Patient Yes Position Verified Availability Equipment, Medication Prep Dry n/a Verified (If Applicable) PreOp Antibiotic No Time Out Mook Monzon, Given Participants Isai Brunner RN, Sparks, Micala E, Patricia CLAY, Chirag Gaston MD, Sarah Barajas Time Out Complete 11/01/23 09:44:00 Outcomes Met? Yes Last Modified By: Isai Brunner RN 11/01/23 09:44:31 Post-Care Text: The patient is free from signs and symptoms of injury caused by extraneous objects Allergy Information FT Pre-Care Text: Verifies allergies Entry 1 Allergies Reviewed? Yes Allergies Reviewed Self/Patient With Outcomes Met? Yes Last Modified By: Isai Brunner RN 11/01/23 09:42:11 Post-Care Text: The patient received appropriate medication(s) safely administered during the perioperative period Surgical Procedures FT Entry 1 Procedure Description Procedure EGD AND COLONOSCOPY Modifiers . Surgeon Description EGD with barretts esophagus biopsy and gastric biopsy. Colonoscopy with transverse colon polypectomy using lifting (everlift), hot snare removal and hemoclip x2 applied to polypectomy site, transverse colon polypectomy using cold snare, sigmoid colon poly Primary Procedure Yes Primary Surgeon Chirag PRABHAKAR, Sarah Barajas Start 11/01/23 09:46:00 Stop 11/01/23 10:21:00 Anesthesia Type General Surgical Service Gastroenterology Wound Class 2 - Clean-Contaminated Last Modified By: Isai Brunner RN 11/01/23 10:22:13 General Comments: EGD with barretts esophagus biopsy and gastric biopsy. Colonoscopy with transverse colon polypectomy using lifting (everlift), hot snare removal and hemoclip x2 applied to polypectomy site, transverse colon polypectomy using cold snare, sigmoid colon polypectomy using cold snare General Case Data FT Pre-Care Text: Classifies surgical wound, implements aseptic technique, initiates traffic control Entry 1 Case Information OR ENDO 1 FT Case Level Level 2 Wound Class 2 - Clean-Contaminated Specialty Gastroenterology ASA Class 3 Preop Diagnosis CAGLE, Fatty liver, Postop Same As Preop No Chronic GERD, Colon cancer screening Postop Diagnosis EGD- Barretts Outcomes Met? Yes esophagus. 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 Normal [facility] Main OR PACU I Recordon 10-09 Main OR PACU I Record PACU Phase I Document Type FT Summary Primary Physician: Chirag PRABHAKAR, Sarah Barajas Finalized Date/Time: 11/01/23 11:32:26 Pt. Name: ADARSH SCHAFER/Sex: 1970 Male Med Rec #: [id number] Physician: Sarah Beard MD Financial #: [id number] Pt. Type: O Room/Bed: / Admit/Disch: 11/01/23 08:25:41 - Institution: Case Times PACU I FT Pre-Care Text: Identifies barriers to communication and implements measures to provide psychological support Develops individualized plan of care, and ensures continuity of care Maintains patient's dignity and privacy, and maintains patient confidentiality Identifies and reports philosophical, cultural, and spiritual beliefs and values Identifies individual values and wishes concerning care Implements aseptic technique, and administers prescribed antibiotic therapy and immunizing agents as ordered Evaluates postoperative tissue perfusion Implements thermoregulation measures, and monitors body temperature Evaluates postoperative respiratory status Evaluates postoperative cardiac status Evaluates postoperative neurological status Assesses pain control, collaborated in initiating patient-controlled analgesia and implements alternative methods of pain control Verifies allergies, administers prescribed medications and solutions, evaluates response to medications Entry 1 In PACU I 11/01/23 10:24:00 Discharge from PACU 11/01/23 11:15:00 I Outcomes Met? Yes Last Modified By: Tanya Smiley RN 11/01/23 11:32:03 Post-Care Text: The patient demonstrates knowledge of the expected response to the operative or invasive procedure The patient's care is consistent with the individualized perioperative plan of care The patient's right to privacy is maintained The patient's value system, lifestyle, ethnicity, and culture are considered, respected, and incorporated into the perioperative plan of care The patient participates in decisions affecting his or her perioperative plan of care The patient is free from signs and symptoms of infection The patient has wound/tissue perfusion consistent with or improved from baseline levels established preoperatively The patient is at or returning to normothermia at the conclusion of the immediate postoperative period The patient's respiratory function is consistent with or improved from baseline levels established preoperatively The patient's cardiovascular status is consistent with or improved from baseline levels established preoperatively The patient's cardiovascular status is consistent with or improved from baseline levels established preoperatively The patient demonstrates and/or reports adequate pain control throughout the perioperative period The patient received appropriate medication(s), safely administered during the perioperative period Acuity Level PACU I FT Entry 1 Start Time 11/01/23 10:24:00 Stop Time 11/01/23 11:15:00 Acuity Level Acuity Level I Last Modified By: Tanya Smiley RN 11/01/23 11:32:23 Finalized By: Tanya Smiley RN Document Signatures Signed By: Tanya Smiley RN 11/01/23 11:32 Normal [facility] Main OR Preoperative Recordo n 11-01-2023 Main OR Preoperative Record Holding Area Document Type FT Summary Primary Physician: Sarah Beard MD Finalized Date/Time: 11/01/23 08:39:08 Pt. Name: ADARSH SCHAFER/Sex: 1970 Male Med Rec #: [id number] Physician: Sarah Beard MD Financial #: [id number] Pt. Type: O Room/Bed: / Admit/Disch: 11/01/23 08:25:41 - Institution: Case Times Holding FT Pre-Care Text: Verifies consent for planned procedure, identifies individual values and wishes concerning care, includes family members in perioperative teaching Secures patient's records' belongings, and valuables, maintains patient's dignity and privacy, and maintains patient confidentiality Entry 1 In Holding 11/01/23 08:34:00 Outcomes Met? Yes Last Modified By: Jayla Simons RN 11/01/23 08:36:18 Post-Care Text: The patient participates in decisions affecting his or her perioperative plan of care The patient's right to privacy is maintained Surgery Checklist FT Entry 1 Patient Birthday, ID Band Procedure History and Physical, Identification: Check, Patient Verification: Surgical Consent, With Participation Patient NPO after Midnight: Yes Results Reviewed Clear Comments: Personal Items None Complaints of Pain: No Comment: Pain Comment: Denies Operative Site n/a Marking: Availability Equipment Verified: Does Patient Smoke No Patient states Yes Comment - Adult postop adult Supervision supervision available Case Cancelled in No Holding Area see comments below for reason Last Modified By: Jayla Simons RN 11/01/23 08:39:04 General Comments: Pt completed prep at 0315 and remained NPO since/FANNYRN Finalized By: Jayla Simons RN Document Signatures Signed By: Jayla Simons RN 11/01/23 08:39 Normal [facility] Monitor Recordon 11-01-2023 Monitor Record [id number] Normal [facility] Monitor Record [id number] Normal [facility] Outpatient Surgery Discharge Instructionon 11-01-2023 Outpatient Surgery Discharge Instruction [address] [address] Patient Discharge Instructions PERSON INFORMATION Name: ADARSH SCHAFER Date of : 1970 Current Date: 11/01/2023 10:36:11 PHYSICIANS Admitting Physician: Chirag PRABHAKAR, Sarah Barajas Discharge Diagnosis: Chronic GERD; Colon cancer screening ADARSH SCHAFER has been given the following list of follow-up instructions, prescriptions, and patient education materials: PATIENT FOLLOW-UP INFORMATION Diet: Regular Discharge Activity: Resume normal activities in 24 hours Discharge Restrictions: No driving for 24 hrs Call Your Doctor For: Persistent or heavy bleeding IF UNABLE TO CONTACT YOUR PHYSICIAN AND YOU FEEL IT IS AN EMERGENCY, GO TO THE NEAREST EMERGENCY ROOM OR CALL 911 GILMAR Doe JASON D, have received the attached patient education materials/instructions and have verbalized understanding: May we do a follow up call? Yes No I was present when discharge instructions were given __ Patient Signature Date Clinican/Nurse Signature Date Follow up: With: Address: When: Sarah Beard [address] [place] [address], [address], [address] [address] [phone] [facility] (1) Comments: office will call for follow up Type Location Start [facility] 11/15/2023 2:00 PM 11/15/2023 2:20 PM Confirmed Pharmacy Information: You may receive a survey from [employer] [employer] asking you to rate your care experience. Your feedback is important and will help us understand what we do well and how we can improve the quality of care we provide to you, your loved ones and our community. It?s an honor to serve you. Thank you for choosing [facility] HERE ARE THE MEDICATION CHANGES THAT OCCURRED DURING YOUR HOSPITAL STAY Medications to Continue with No Changes Other Medications levothyroxine (levothyroxine 175 mcg (0.175 mg) Tab) 1 Tablets By Mouth every day. Refills: 1. metoprolol (metoprolol 25 mg ER Tab) 1 Tablets By Mouth every day. Refills: 1. PATIENT EDUCATION INFORMATION Instructions: Upper Endoscopy, Adult, Care After After the procedure, it is common to have a sore throat. It is also common to have: ? Mild stomach pain or discomfort. ? Bloating. ? Nausea. Follow these instructions at home: The instructions below may help you care for yourself at home. Your health care provider may give you more instructions. If you have questions, ask your health care provider. ? If you were given a sedative during the procedure, it can affect you for several hours. Do not drive or operate machinery until your health care provider says that it is safe. ? If you will be going home right after the procedure, plan to have a responsible adult: ? Take you home from the hospital or clinic. You will not be allowed to drive. ? Care for you for the time you are told. ? Follow instructions from your health care provider about what you may eat and drink. ? Return to your normal activities as told by your health care provider. Ask your health care provider what activities are safe for you. ? Take oeoj-hbx-ebijswi and prescription medicines only as told by your health care provider. Contact a health care provider if you: ? Have a sore throat that lasts longer than one day. ? Have trouble swallowing. ? Have a fever. Get help right away if you: ? Vomit blood or your vomit looks like coffee grounds. ? Have bloody, black, or tarry stools. ? Have a very bad sore throat or you cannot swallow. ? Have difficulty breathing or very bad pain in your chest or abdomen. These symptoms may be an emergency. Get help right away. Call 911. ? Do not wait to see if the symptoms will go away. ? Do not drive yourself to the hospital. Summary ? After the procedure, it is common to have a sore throat, mild stomach discomfort, bloating, and nausea. ? If you were given a sedative during the procedure, it can affect you for several hours. Do not drive until your health care provider says that it is safe. ? Follow instructions from your health care provider about what you may eat and drink. ? Return to your normal activities as told by your health care provider. This information is not intended to replace advice given to you by your health care provider. Make sure you discuss any questions you have with your health care provider. Document Revised: 09/05/2022 Document Reviewed: 09/05/2022 [employer] Patient Education ? 2022 [employer] Sinclair's Esophagus Sinclair's esophagus occurs when the (more content not included)... Normal [facility] Patient Education - Texton 0 11-01-2023 Patient Education - Text Colonoscopy Care After Surgery Please read the instructions outlined below and refer to this sheet in the next few weeks. These discharge instructions provide you with general information on caring for yourself after you leave the hospital. Your doctor may also give you specific instructions. While your treatment has been planned according to the most current medical practices available, unavoidable complications occasionally occur. If you have any problems or questions after discharge, please call your doctor. ACTIVITY You may resume your regular activity, but move at a slower pace for the next 24 hours. Take frequent rest periods for the next 24 hours. Walking will help get rid of the air and reduce the bloated feeling in your abdomen (belly). No driving for 24 hours (because of the anesthesia (medicine) used during the test). You may shower. Do not sign any important legal documents or operate any machinery for 24 hours (because of the anesthesia used during the test). NUTRITION Drink plenty of fluids. You may resume your normal diet as instructed by your doctor. Begin with a light meal and progress to your normal diet. Heavy or fried foods are harder to digest and may make you feel nauseated (sick to your stomach). Avoid alcoholic beverages for 24 hours or as instructed. MEDICATIONS You may resume your normal medications unless your doctor tells you otherwise. WHAT YOU CAN EXPECT TODAY Some feelings of bloating in the abdomen. Passage of more gas than usual. Spotting of blood in your stool or on the toilet paper. FOLLOW-UP Your doctor will discuss the results of your test with you. SEEK IMMEDIATE MEDICAL ATTENTION IF: There is more than a spotting of blood in your stool. There is abdominal distention (your abdomen is swollen). There is vomiting. You have a temperature over 101.5 F. There is abdominal pain or discomfort that is severe or gets worse throughout the day. Gastroenterology Upper Endoscopy, Adult, Care After After the procedure, it is common to have a sore throat. It is also common to have: ? Mild stomach pain or discomfort. ? Bloating. ? Nausea. Follow these instructions at home: The instructions below may help you care for yourself at home. Your health care provider may give you more instructions. If you have questions, ask your health care provider. ? If you were given a sedative during the procedure, it can affect you for several hours. Do not drive or operate machinery until your health care provider says that it is safe. ? If you will be going home right after the procedure, plan to have a responsible adult: ? Take you home from the hospital or clinic. You will not be allowed to drive. ? Care for you for the time you are told. ? Follow instructions from your health care provider about what you may eat and drink. ? Return to your normal activities as told by your health care provider. Ask your health care provider what activities are safe for you. ? Take akvf-juz-hbbmabc and prescription medicines only as told by your health care provider. Contact a health care provider if you: ? Have a sore throat that lasts longer than one day. ? Have trouble swallowing. ? Have a fever. Get help right away if you: ? Vomit blood or your vomit looks like coffee grounds. ? Have bloody, black, or tarry stools. ? Have a very bad sore throat or you cannot swallow. ? Have difficulty breathing or very bad pain in your chest or abdomen. These symptoms may be an emergency. Get help right away. Call 911. ? Do not wait to see if the symptoms will go away. ? Do not drive yourself to the hospital. Summary ? After the procedure, it is common to have a sore throat, mild stomach discomfort, bloating, and nausea. ? If you were given a sedative during the procedure, it can affect you for several hours. Do not drive until your health care provider says that it is safe. ? Follow instructions from your health care provider about what you may eat and drink. ? Return to your normal activities as told by your health care provider. This information is not intended to replace advice given to you by your health care provider. Make sure you discuss any questions you have with your health care provider. Document Revised: 09/05/2022 Document Reviewed: 09/05/2022 [employer] Patient Education ? 2022 [employer] Sinclair's Esophagus Sinclair's esophagus occurs when the tissue that lines the esophagus changes or becomes damaged. The esophagus is the tube that carries food from the throat to the stomach. With Sinclair's esophagus, the cells that line the esophagus are replaced by cells that are similar to the lining of the intestines (intestinal metaplasia). Sinclair's esophagus itself may not cause any symptoms. However, many people who have Sinclair's esophagus also have gastroesophageal reflux disease (GERD), which may cause symptoms such (more content not included)... Normal [facility] Progress Note-Physicianon Progress Note-Physician Patient: ADARSH SCHAFER Age: 53 years Sex: Male : 1970 Associated Diagnoses: None Author: Samuel Ochoa DO Postoperative Information Postoperative disposition: Postoperative disposition: To PACU. Anesthetic utilized: General. Health Status Allergies: Allergic Reactions (Selected) Mild OXcarbazepine- Unknown. Severity Not Documented Pollen- Unknown. Zoloft- Unknown. Current medications: (Selected) Inpatient Medications Ordered Lactated Ringers IV Araseli 1000 mL 1,000 mL: 1,000 mL, IV, 100 mL/hr, Routine, Start date 11/01/23 9:21:00 EDT, 10 hour(s), Total volume (mL): 1,000, 94.3 kg, 2.18, m2 Sodium Chloride 0.9% IV Araseli 1000 mL 1,000 mL: 1,000 mL, IV, 20 mL/hr, Routine, Start date 11/01/23 6:48:00 EDT, 50 hour(s), Total volume (mL): 1,000 Prescriptions Prescribed levothyroxine 175 mcg (0.175 mg) Tab: 175 mcg = 1 tab(s), Oral, Daily, # 90 EA, Refills(s) 1, Pharmacy: [facility]/pharmacy #[id number], 158, cm, 08/29/23 7:21:00 EDT, Height/Length Dosing, 94.2, kg, 08/29/23 7:21:00 EDT, Weight Dosing metoprolol 25 mg ER Tab: 25 mg = 1 tab(s), Oral, Daily, # 90 tab(s), Refills(s) 1, Pharmacy: [facility]/pharmacy #[id number], 158, cm, 08/29/23 7:21:00 EDT, Height/Length Dosing, 94.2, kg, 08/29/23 7:21:00 EDT, Weight Dosing, Home Medications (2) Active levothyroxine 175 mcg (0.175 mg) Tab 175 mcg = 1 tab(s), Oral, Daily metoprolol 25 mg ER Tab 25 mg = 1 tab(s), Oral, Daily Problem list: All Problems Ankylosis / SNOMED CT 979097605 / Confirmed Anxiety / SNOMED CT 40554634 / Confirmed Cervical radiculopathy, chronic / SNOMED CT 345762232 / Confirmed Diverticulitis / SNOMED CT 964901193 / Confirmed Primary hypertension / SNOMED CT 93334628 / Confirmed Psoriasis / SNOMED CT 24809551 / Confirmed Seasonal allergies / SNOMED CT 7838177187 / Confirmed Sinusitis / SNOMED CT 90174579 / Confirmed Steatosis, liver / SNOMED CT 128595540 / Confirmed Thyroid disease / SNOMED CT 48716066 / Confirmed Overactive Thyroid and benign tumor Thyroid mass / SNOMED CT 9455988824 / Confirmed Tinnitus of left ear / SNOMED CT 745038159 / Confirmed TMJ (temporomandibular joint syndrome) / SNOMED CT 38027120 / Confirmed Canceled: Hyperthyroidism / SNOMED CT 48244329 Canceled: Nonalcoholic steatohepatitis (CAGLE) / SNOMED CT 6980859341 Canceled: Otitis media of both ears / SNOMED CT 441698290 Canceled: Tinea cruris / SNOMED CT 8237821212 Physical Examination Vital Signs 11/01/2023 11:05 EDT Heart Rate Monitored 73 bpm Respiratory Rate Monitored 16 br/min Systolic Blood Pressure 159 mmHg HI Diastolic Blood Pressure 96 mmHg HI SpO2 100 % 11/01/2023 10:55 EDT Heart Rate Monitored 66 bpm Respiratory Rate Monitored 14 br/min Systolic Blood Pressure 167 mmHg HI Diastolic Blood Pressure 93 mmHg HI SpO2 100 % 11/01/2023 10:40 EDT Heart Rate Monitored 82 bpm Respiratory Rate Monitored 15 br/min Systolic Blood Pressure 151 mmHg HI Diastolic Blood Pressure 86 mmHg SpO2 100 % 11/01/2023 10:35 EDT Heart Rate Monitored 75 bpm Respiratory Rate Monitored 15 br/min Systolic Blood Pressure 146 mmHg HI Diastolic Blood Pressure 85 mmHg SpO2 98 % 11/01/2023 10:30 EDT Heart Rate Monitored 79 bpm Respiratory Rate Monitored 13 br/min Systolic Blood Pressure 132 mmHg Diastolic Blood Pressure 84 mmHg SpO2 99 % 11/01/2023 10:24 EDT Temperature Temporal Artery 36.3 DegC Heart Rate Monitored 78 bpm Respiratory Rate Monitored 15 br/min Systolic Blood Pressure 126 mmHg Diastolic Blood Pressure 75 mmHg SpO2 100 % 11/01/2023 10:20 EDT Heart Rate Monitored 75 bpm bpm Respiratory Rate 14 br/min br/min Systolic Blood Pressure 126 mmHg mmHg Diastolic Blood Pressure 79 mmHg mmHg SpO2 100 % % 11/01/2023 10:18 EDT Systolic Blood Pressure 133 mmHg mmHg Diastolic Blood Pressure 85 mmHg mmHg 11/01/2023 10:16 EDT Systolic Blood Pressure 140 mmHg mmHg Diastolic Blood Pressure 74 mmHg mmHg 11/01/2023 10:15 EDT Heart Rate Monitored 75 bpm bpm Respiratory Rate 14 br/min br/min Respiratory Rate Monitored 11 br/min br/min SpO2 99 % % 11/01/2023 10:14 EDT Systolic Blood Pressure 130 mmHg mmHg Diastolic Blood Pressure 82 mmHg mmHg 11/01/2023 10:12 EDT Systolic Blood Pressure 126 mmHg mmHg Diastolic Blood Pressure 80 mmHg mmHg 11/01/2023 10:10 EDT Heart Rate Monitored 75 bpm bpm Respiratory Rate 14 br/min br/min Respiratory Rate Monitored 12 br/min br/min Systolic Blood Pressure 119 mmHg mmHg Diastolic Blood Pressure 75 mmHg mmHg SpO2 99 % % 11/01/2023 10:08 EDT Systolic Blood Pressure 124 mmHg mmHg Diastolic Blood Pressure 79 mmHg mmHg 11/01/2023 10:06 EDT Systolic Blood Pressure 125 mmHg mmHg Diastolic Blood Pressure 76 mmHg mmHg 11/01/2023 10:05 EDT Heart Rate Monitored 84 bpm bpm Respiratory Rate 14 br/min br/min Respiratory Rate Monitored 12 br/min br/min SpO2 99 % % 11/01/2023 10:04 EDT Systolic Blood Pressure 125 mmHg mmHg Diastolic Blood Pressure 81 mmHg mmHg (more content not included)... Normal [facility] Comment on above: Result Comment: Elec tronically Signed By: Samuel Ochoa DO\.br\Date and Time Signed: 11/01/23 11:47 EDT Progress Note-Physician Patient: ADARSH SCHAFER Age: 53 years Sex: Male : 1970 Associated Diagnoses: None Author: Samuel Ochoa DO Preoperative Information Anesthesia history: Patient history: None. Family history+: None. Anesthesia results Informed consent: Signed by patient. Including risks, benefits, and alternatives related to the: Anesthetic plan, Postoperative pain management plan. Re-evaluation prior to induction: Samuel Ochoa DO. Health Status Allergies: Allergic Reactions (Selected) Mild OXcarbazepine- Unknown. Severity Not Documented Pollen- Unknown. Zoloft- Unknown., Allergies (3) Active Severity Reaction OXcarbazepine Mild Unknown Zoloft Unknown Pollen Unknown Current medications: (Selected) Inpatient Medications Ordered Lactated Ringers IV Araseli 1000 mL 1,000 mL: 1,000 mL, IV, 100 mL/hr, Routine, Start date 11/01/23 9:21:00 EDT, 10 hour(s), Total volume (mL): 1,000, 94.3 kg, 2.18, m2 Sodium Chloride 0.9% IV Araseli 1000 mL 1,000 mL: 1,000 mL, IV, 20 mL/hr, Routine, Start date 11/01/23 6:48:00 EDT, 50 hour(s), Total volume (mL): 1,000 Prescriptions Prescribed levothyroxine 175 mcg (0.175 mg) Tab: 175 mcg = 1 tab(s), Oral, Daily, # 90 EA, Refills(s) 1, Pharmacy: [facility]/pharmacy #[id number], 158, cm, 08/29/23 7:21:00 EDT, Height/Length Dosing, 94.2, kg, 08/29/23 7:21:00 EDT, Weight Dosing metoprolol 25 mg ER Tab: 25 mg = 1 tab(s), Oral, Daily, # 90 tab(s), Refills(s) 1, Pharmacy: [facility]/pharmacy #[id number], 158, cm, 08/29/23 7:21:00 EDT, Height/Length Dosing, 94.2, kg, 08/29/23 7:21:00 EDT, Weight Dosing, Home Medications (2) Active levothyroxine 175 mcg (0.175 mg) Tab 175 mcg = 1 tab(s), Oral, Daily metoprolol 25 mg ER Tab 25 mg = 1 tab(s), Oral, Daily , Medications (2) Active Scheduled: (0) Continuous: (2) Lactated Ringers 1,000 mL 1,000 mL, IV, 100 mL/hr Sodium Chloride 0.9% 1,000 mL 1,000 mL, IV, 20 mL/hr PRN: (0) Problem list: All Problems Ankylosis / SNOMED CT 821388697 / Confirmed Anxiety / SNOMED CT 63318221 / Confirmed Cervical radiculopathy, chronic / SNOMED CT 675589387 / Confirmed Diverticulitis / SNOMED CT 422750838 / Confirmed Primary hypertension / SNOMED CT 64279369 / Confirmed Psoriasis / SNOMED CT 31790300 / Confirmed Seasonal allergies / SNOMED CT 2245777056 / Confirmed Sinusitis / SNOMED CT 49389251 / Confirmed Steatosis, liver / SNOMED CT 502340715 / Confirmed Thyroid disease / SNOMED CT 16871198 / Confirmed Overactive Thyroid and benign tumor Thyroid mass / SNOMED CT 2385890715 / Confirmed Tinnitus of left ear / SNOMED CT 212374415 / Confirmed TMJ (temporomandibular joint syndrome) / SNOMED CT 16331891 / Confirmed Canceled: Hyperthyroidism / SNOMED CT 33023651 Canceled: Nonalcoholic steatohepatitis (CAGLE) / SNOMED CT 9592974575 Canceled: Otitis media of both ears / SNOMED CT 383522609 Canceled: Tinea cruris / SNOMED CT 5570205644, Active Problems (13) Ankylosis Anxiety Cervical radiculopathy, chronic Diverticulitis Primary hypertension Psoriasis Seasonal allergies Sinusitis Steatosis, liver Thyroid disease Thyroid mass Tinnitus of left ear TMJ (temporomandibular joint syndrome) Histories Past Medical History: No active or resolved past medical history items have been selected or recorded. Family History: Hypertension Father Procedure history: Thyroidectomy (25830137) on 02/13/2018 at 47 Years. Entire wisdom tooth (501165673). Diverticulitis surgery (110425004). tongue and throat biopsy. Social History Social & Psychosocial Habits Alcohol 08/29/2023 Risk Assessment: High Risk 08/29/2023 Use: Current Type: Beer Frequency: 3-5 times per week Substance Abuse 08/29/2023 Risk Assessment: Denies Substance Abuse Tobacco 08/29/2023 Risk Assessment: Denies Tobacco Use 08/29/2023 Tobacco Use: Never (less than 100 in l Smokeless tobacco use: Former smokeless tobacco . Physical Examination Vital Signs 11/01/2023 8:50 EDT Temperature Temporal Artery 36.5 DegC Heart Rate Monitored 75 bpm Respiratory Rate 14 br/min Systolic Blood Pressure 148 mmHg HI Diastolic Blood Pressure 88 mmHg Blood Pressure Location Left arm SpO2 100 % Vital Signs (last 24 hrs) Last Charted Temp Temporal 36.5 DegC (OCTOBER 31 08:50) Heart Rate Monitored 75 bpm (OCTOBER 31 08:50) SBP H 148 mmHg (OCTOBER 31 08:50) DBP 88 mmHg (OCTOBER 31 08:50) Weight 94.3 kg (OCTOBER 31 08:36) Measurements from flowsheet : Measurements 11/01/2023 8:36 EDT Height/Length Measured 182 cm Height/Length Dosing 182.0 cm Weight Dosing 94.3 kg Weight Measured 94.3 kg Airway: Mallampati classification: II (soft palate, fauces, uvula visible). Distance: Mentohyoid, Interincisive, Thyromental, Mentosternal, Adequate. HENT: Normocephalic. Respiratory: Lungs are clear to auscultation. Cardiovascular: Regular rhythm. Gastrointestinal: Soft. Review / Management Results revie (more content not included)... [facility] Comment on above: Result Comment: Elec tronically Signed By: Samuel Ochoa DO.br\Date and Time Signed: 11/01/23 09:22 EDT Consultation Noteon 10-24-19 Consultation Note [id number]#[id number] [facility] RAD - MISCon 04-29-2024 RAD - MIS [id number]#[id number] Normal [facility] Consultation Noteon 10-01-19 Consultation Note [id number] Normal [facility] Patient Letter FTon [address] [facility] Junior Sinclair, [address] [place] [address] Re: ADARSH SCHAFER Date of : 1970 To Whom It May Concern: Dr Sinclair sent over a referral for Adarsh Schafer (: 68) and this is to verify the referral is to rule out rheumatoid arthritis. [facility] [place] [address] Normal [facility] Ambulatory Visit Summaryon 0 08-29-2023 Ambulatory Visit Summary ADARSH SCHAFER :1970 Visit Date:08/29/2023 Ambulatory Visit Instructions Your Diagnosis Seasonal allergies Primary hypertension Cervical radiculopathy, chronic Steatosis, liver Cervical arthritis BMI 37.0-37.9, adult Class 1 obesity due to excess calories in adult Nonsmoker Your Care Team Attending Physician - Junior Sinclair MD Primary Care Physician - Junior Sinclair MD This Is Your Medications List Contact prescribing physician if questions or concerns levothyroxine (levothyroxine 175 mcg (0.175 mg) Tab) metoprolol (metoprolol 25 mg ER Tab) [Image Removed: STOP]Stop taking these medications apremilast (Otezla Starter Pack) Procedures Performed Thyroidectomy (02/13/2018), Diverticulitis, Entire wisdom tooth, tongue and throat biopsy. Discharge Vitals Temperature (Temporal Artery) 36.5 ?C Heart Rate (Peripheral) 76 Respiratory Rate 16 Blood Pressure 122/80 Height 158 cm Height 62 in Weight 94.2 kg Weight 207.24 lb BMI 37.73 What to do next Scheduled Follow-Up Appointments Saturday 3:00 PM EDT With: Junior Sinclair MD Where: [facility] [place] Invalid Interpretation Code Primary hypertension [facility] Consenton 08-29-2023 Consent [id number] Normal [facility] Patient Educationon 08-29-19 24 Patient Education Cardiovascular Hypertension, Adult High blood pressure (hypertension) is when the force of blood pumping through the arteries is too strong. The arteries are the blood vessels that carry blood from the heart throughout the body. Hypertension forces the heart to work harder to pump blood and may cause arteries to become narrow or stiff. Untreated or uncontrolled hypertension can lead to a heart attack, heart failure, a stroke, kidney disease, and other problems. A blood pressure reading consists of a higher number over a lower number. Ideally, your blood pressure should be below 120/80. The first ( top ) number is called the systolic pressure. It is a measure of the pressure in your arteries as your heart beats. The second ( bottom ) number is called the diastolic pressure. It is a measure of the pressure in your arteries as the heart relaxes. What are the causes? The exact cause of this condition is not known. There are some conditions that result in high blood pressure. What increases the risk? Certain factors may make you more likely to develop high blood pressure. Some of these risk factors are under your control, including: ? Smoking. ? Not getting enough exercise or physical activity. ? Being overweight. ? Having too much fat, sugar, calories, or salt (sodium) in your diet. ? Drinking too much alcohol. Other risk factors include: ? Having a personal history of heart disease, diabetes, high cholesterol, or kidney disease. ? Stress. ? Having a family history of high blood pressure and high cholesterol. ? Having obstructive sleep apnea. ? Age. The risk increases with age. What are the signs or symptoms? High blood pressure may not cause symptoms. Very high blood pressure (hypertensive crisis) may cause: ? Headache. ? Fast or irregular heartbeats (palpitations). ? Shortness of breath. ? Nosebleed. ? Nausea and vomiting. ? Vision changes. ? Severe chest pain, dizziness, and seizures. How is this diagnosed? This condition is diagnosed by measuring your blood pressure while you are seated, with your arm resting on a flat surface, your legs uncrossed, and your feet flat on the floor. The cuff of the blood pressure monitor will be placed directly against the skin of your upper arm at the level of your heart. Blood pressure should be measured at least twice using the same arm. Certain conditions can cause a difference in blood pressure between your right and left arms. If you have a high blood pressure reading during one visit or you have normal blood pressure with other risk factors, you may be asked to: ? Return on a different day to have your blood pressure checked again. ? Monitor your blood pressure at home for 1 week or longer. If you are diagnosed with hypertension, you may have other blood or imaging tests to help your health care provider understand your overall risk for other conditions. How is this treated? This condition is treated by making healthy lifestyle changes, such as eating healthy foods, exercising more, and reducing your alcohol intake. You may be referred for counseling on a healthy diet and physical activity. Your health care provider may prescribe medicine if lifestyle changes are not enough to get your blood pressure under control and if: ? Your systolic blood pressure is above 130. ? Your diastolic blood pressure is above 80. Your personal target blood pressure may vary depending on your medical conditions, your age, and other factors. Follow these instructions at home: Eating and drinking ? Eat a diet that is high in fiber and potassium, and low in sodium, added sugar, and fat. An example of this eating plan is called the DASH diet. DASH stands for Dietary Approaches to Stop Hypertension. To eat this way: ? Eat plenty of fresh fruits and vegetables. Try to fill one half of your plate at each meal with fruits and vegetables. ? Eat whole grains, such as whole-wheat pasta, brown rice, or whole-grain bread. Fill about one fourth of your plate with whole grains. ? Eat or drink low-fat dairy products, such as skim milk or low-fat yogurt. ? Avoid fatty cuts of meat, processed or cured meats, and poultry with skin. Fill about one fourth of your plate with lean proteins, such as fish, chicken without skin, beans, eggs, or tofu. ? Avoid pre-made and processed foods. These tend to be higher in sodium, added sugar, and fat. ? Reduce your daily sodium intake. Many people with hypertension should eat less than 1,500 mg of sodium a day. ? Do not drink alcohol if: ? Your health care provider tells you not to drink. ? You are , may be , or are planning to become . ? If you drink alcohol: ? Limit how much you have to: ? 0?1 drink a day for women. ? 0?2 drinks a day for men. ? Know how much alcohol is in your drink. In the [place] one drink equals one 12 oz bottle of beer (355 mL), one 5 oz glass of wine (148 mL), or one 1? oz glass (more content not included)... Normal [facility] Physician Referralon 024 Physician Referral [id number]#[id number] Normal [facility] Physician Referral [id number]#[id number] [facility] Ambulatory Visit Summaryon 0 07-10-2023 Ambulatory Visit Summary ADARSH SCHAFER :1970 Visit Date:07/10/2023 Ambulatory Visit Instructions Your Diagnosis Sinusitis Otitis media of both ears BMI 37.0-37.9, adult Your Care Team Attending Physician - Génesis Ruano Primary Care Physician - Junior Sinclair MD This Is Your Medications List amoxicillin-clavulanate (Augmentin 875 mg oral tablet) apremilast (Otezla Starter Pack) levothyroxine (levothyroxine 175 mcg (0.175 mg) Tab) methylPREDNISolone (Medrol 4 mg Tab) metoprolol (metoprolol 25 mg ER Tab) Procedures Performed Thyroidectomy (02/13/2018), Diverticulitis, Entire wisdom tooth, tongue and throat biopsy. Discharge Vitals Temperature (Temporal Artery) 37 ?C Heart Rate (Peripheral) 64 Blood Pressure 122/76 Height 158 cm Height 62 in Weight 94.6 kg Weight 208.12 lb BMI 37.89 What to do next Scheduled Follow-Up Appointments Saturday 2:30 PM EDT With: Where: [facility] Saturday 3:00 PM EDT With: Junior Sinclair MD Where: [facility] Medicine [place]ie Normal [facility] Medicine Office/Clini c Noteon 07-10-2023 Family Medicine Office/Clinic Note Chief Complaint sinus congestion HPI Staff Patient presents for an acute visit. complaints of _ sinus pressure and congestion Onset: one month Characteristics: head congestion more at night OTC tried: vicks vapor rub, sucrets History of Present Illness pt presents today with sinus pressure and congestion for 4 weeks Review of Systems PHQ Score Initial Depression Screen Score: 0 SCORE ROS - Provider Constitutional: no fever, no chills, no sweats, no fatigue Respiratory: no shortness of breath, yes cough, no orthopnea, no wheezing. congestion, sinus pressure Cardiovascular: no chest pain, no palpitations, no edema. Neurologic: no headache, no dizziness, no numbness, no weakness. Physical Exam Vitals & Measurements T: 37 ?C(Temporal Artery) HR: 64(Peripheral) BP: 122/76 SpO2: 99% HT: 62 in HT: 158 cm WT: 94.6 kg WT: 208.12 lb BMI: 37.89 General: alert, no acute distress ENMT: oral mucosa moist, no pharyngeal erythema or exudate, MARIBETH TM red and bulging clear fluid, canals both red, throat red no exudate Cardiovascular: regular rate and rhythm, normal peripheral perfusion Respiratory: Lungs CTA, respirations non labored Extremities: no deformity, no trauma Neurological: oriented x 4, LOC appropriate for age, CN II-XII intact, motor strength equal & normal bilaterally, speech normal Assessment/Plan 1. Sinusitis (J32.9: Chronic sinusitis, unspecified) sinus pressure, nasal congestion has been going on for about 4 weeks Ordered: amoxicillin-clavulanate, = 1 tab(s), Oral, q12hr, X 7 day(s), # 14 tab(s), Refills(s) 0, Pharmacy: [facility]/pharmacy #[id number], 158, cm, 07/10/23 16:20:00 EST, Height/Length Dosing, 94.6, kg, 07/10/23 16:20:00 EST, Weight Dosing methylPREDNISolone, = 1 packet(s), Oral, As Directed, as directed on package labeling, X 6 day(s), # 21 tab(s), Refills(s) 0, Pharmacy: [facility]/pharmacy #[id number], 158, cm, 07/10/23 16:20:00 EST, Height/Length Dosing, 94.6, kg, 07/10/23 16:20:00 EST, Weight Dosing 2. Otitis media of both ears (H66.93: Otitis media, unspecified, bilateral) MARIBETH TM red as well as canals left TM bulging with clear fluid Ordered: amoxicillin-clavulanate, = 1 tab(s), Oral, q12hr, X 7 day(s), # 14 tab(s), Refills(s) 0, [id number], 158, cm, 07/10/23 16:20:00 EST, Height/Length Dosing, 94.6, kg, 07/10/23 16:20:00 EST, Weight Dosing methylPREDNISolone, = 1 packet(s), Oral, As Directed, as directed on package labeling, X 6 day(s), # 21 tab(s), Refills(s) 0, [id number], 158, cm, 07/10/23 16:20:00 EST, Height/Length Dosing, 94.6, kg, 07/10/23 16:20:00 EST, Weight Dosing 3. BMI 37.0-37.9, adult (Z68.37: Body mass index [BMI] 37.0-37.9, adult) BMI education complete Ordered: amoxicillin-clavulanate, = 1 tab(s), Oral, q12hr, X 7 day(s), # 14 tab(s), Refills(s) 0, [id number], 158, cm, 07/10/23 16:20:00 EST, Height/Length Dosing, 94.6, kg, 07/10/23 16:20:00 EST, Weight Dosing methylPREDNISolone, = 1 packet(s), Oral, As Directed, as directed on package labeling, X 6 day(s), # 21 tab(s), Refills(s) 0, [id number], 158, cm, 07/10/23 16:20:00 EST, Height/Length Dosing, 94.6, kg, 07/10/23 16:20:00 EST, Weight Dosing Follow-up No qualifying data available Problem List/Past Medical History Ongoing Ankylosis Anxiety Cervical radiculopathy, chronic Diverticulitis Nonalcoholic steatohepatitis (CAGLE) Otitis media of both ears Primary hypertension Psoriasis Seasonal allergies Sinusitis Thyroid disease Tinnitus of left ear Historical No qualifying data Procedure/Surgical History Thyroidectomy (02/13/2018), Diverticulitis, Entire wisdom tooth, tongue and throat biopsy. Medications Augmentin 875 mg oral tablet, 1 tab(s), Oral, q12hr levothyroxine 175 mcg (0.175 mg) Tab, 175 mcg= 1 tab(s), Oral, Daily, 1 refills Medrol 4 mg Tab, 1 packet(s), Oral, As Directed metoprolol 25 mg ER Tab, 25 mg= 1 tab(s), Oral, Daily Otezla Starter Pack, Not taking Allergies OXcarbazepine (Unknown) Pollen (Unknown) Zoloft (Unknown) Social History Alcohol - High Risk, 01/07/2018 Current, Beer, 3-5 times per week, 01/07/2018 Substance Abuse - Denies Substance Abuse, 01/07/2018 Tobacco - Denies Tobacco Use, 01/07/2018 Never (less than 100 in lifetime) Tobacco Use:. Former smokeless tobacco user, quit more than 30 days ago Smokeless Tobacco Use:., 07/10/2023 Family History Hypertension: Father. Immunizations Vaccine Date Status Comments influenza virus vaccine, inactivated - Not Given Patient Refuses SARS-CoV-2 (COVID-19) mRNA BNT-162b2 vax 09/13/2020 Recorded SARS-CoV-2 (COVID-19) mRNA BNT-162b2 vax 08/22/2020 Recorded diphtheria/pertussis, acel/tetanus adult 01/10/2019 Recorded Normal [facility] Comment on above: Result Comment: Elec tronically Signed By: Génesis Ruano\.niles\Date and Time Signed: 07/10/23 16:44 EST Consent for Procedure/Surger yon 07-08-2023 Consent for Procedure/Surgery [id number]#[id number] Normal [facility] Ambulatory Visit Summaryon 0 07-04-2023 Ambulatory Visit Summary ADARSH SCHAFER :1970 Visit Date:07/04/2023 Ambulatory Visit Instructions Your Diagnosis Nonalcoholic steatohepatitis (CAGLE) Fatty liver Chronic GERD Your Care Team Attending Physician - Chirag PRABHAKAR, Sarah Barajas Primary Care Physician - Junior Sinclair MD Referring Physician - Junior Sinclair MD. This Is Your Medications List Contact prescribing physician if questions or concerns apremilast (Otezla Starter Pack) levothyroxine (levothyroxine 175 mcg (0.175 mg) Tab) metoprolol (metoprolol 25 mg ER Tab) Procedures Performed Thyroidectomy (02/13/2018), Diverticulitis, Entire wisdom tooth, tongue and throat biopsy. Discharge Vitals Heart Rate (Peripheral) 73 Respiratory Rate 16 Blood Pressure 129/81 Height 72 in Height 182 cm Weight 207.46 lb Weight 94.3 kg BMI 28.47 What to do next Scheduled Follow-Up Appointments Saturday. 2023 3:00 PM EDT With: Junior Sinclair MD Where: [facility] [place] Normal [facility] Gastroenterology Office/Clin ic Noteon 07-04-2023 Gastroenterology Office/Clinic Note Chief Complaint ref by meme CAGLE and RUQ pain HPI Staff Patient is a 52 year old male who was referred by Yahir for CAGLE. Denies recent imaging or previous EGD/Colonoscopy. Denies fhx of colon ca C/o RUQ abdominal pain, comes and goes, very mild. US RUQ 06/29/22 @ [place]: IMPRESSION: 1. Increased echogenicity of liver consistent with fatty infiltration of liver. 2. The remainder the right upper quadrant is unremarkable. Laboratory Results CMP A/G Ratio: 1.3 (05/07/23) AGAP: 12 mEq/L (05/07/23) Albumin Lvl: 4.2 gm/dL (05/07/23) Alk Phos: 63 Int._Unit/L (05/07/23) ALT: 44 Int._Unit/L (05/07/23) AST: 38 Int._Unit/L (05/07/23) Bili Total: 0.6 mg/dL (05/07/23) BUN: 10 mg/dL (05/07/23) BUN/Creat Ratio: 10 (05/07/23) Calcium Lvl: 9.6 mg/dL (05/07/23) Chloride: 101 mmol/L (05/07/23) CO2: 28 mmol/L (05/07/23) Creatinine: 1 mg/dL (05/07/23) Globulin: 3.2 gm/dL (05/07/23) Glucose Lvl: 98 mg/dL (05/07/23) Potassium Lvl: 4.3 mmol/L (05/07/23) Sodium Lvl: 137 mmol/L (05/07/23) Total Protein: 7.4 gm/dL (05/07/23) TSH 1.89 Liver workup at [facility] 02/18/23 - all negative. History of Present Illness used to drink 4-6 beers a day, slowed down 1 year ago 10 beers a week Had fibroscan 02/2023 at [facility]: CAP 263, E 7.8 kPa Had elevation in AST/ALT <100 each, normalized Lost 15 -20 lb Review of Systems PHQ Score Initial Depression Screen Score: 0 SCORE Physical Exam Vitals & Measurements HR: 73(Peripheral) RR: 16 BP: 129/81 HT: 72 in HT: 182 cm WT: 94.3 kg WT: 207.46 lb BMI: 28.47 Assessment/Plan 2. Fatty liver (K76.0: Fatty (change of) liver, not elsewhere classified) I believe he has fatty liver secondary to alcohol as he was drinking 5-6 beers a day and metabolic syndrome He cut down on the alcohol significantly, advised not to exceed more than 2-3 beers a day even on weekends Given the FibroScan in file and showed S2, F2 with E 7.8, Advised to abstain from alcohol according to AASLD guidelines Lifestyle modifications for MAFLD Will repeat FibroScan in 6 months Ordered: Colonoscopy (Hospital Procedure) EGD Endoscopy (Hospital Procedure) OP Consult New/Estab Pt Moderate 40 Min 51654 3. Chronic GERD (K21.9: Gastro-esophageal reflux disease without esophagitis) Minimal, as controlled with symptoms, given the use of alcohol in the past I would rather to do EGD to screen for Sinclair's esophagus Ordered: Colonoscopy (Hospital Procedure) EGD Endoscopy (Hospital Procedure) OP Consult New/Estab Pt Moderate 40 Min 10779 4. Screening for colon cancer Average risk, discussed all options, okay with colonoscopy Follow-up No qualifying data available Problem List/Past Medical History Ongoing Ankylosis Anxiety Cervical radiculopathy, chronic Diverticulitis Nonalcoholic steatohepatitis (CAGLE) Primary hypertension Psoriasis Seasonal allergies Thyroid disease Tinnitus of left ear Historical No qualifying data Procedure/Surgical History Thyroidectomy (02/13/2018), Diverticulitis, Entire wisdom tooth, tongue and throat biopsy. Medications levothyroxine 175 mcg (0.175 mg) Tab, 175 mcg= 1 tab(s), Oral, Daily, 1 refills metoprolol 25 mg ER Tab, 25 mg= 1 tab(s), Oral, Daily Otezla Starter Pack, Not taking Allergies OXcarbazepine (Unknown) Pollen (Unknown) Zoloft (Unknown) Social History Alcohol - High Risk, 01/07/2018 Current, Beer, 3-5 times per week, 01/07/2018 Substance Abuse - Denies Substance Abuse, 01/07/2018 Tobacco - Denies Tobacco Use, 01/07/2018 Never (less than 100 in lifetime) Tobacco Use:. Former smokeless tobacco user, quit more than 30 days ago Smokeless Tobacco Use:., 07/04/2023 Family History Hypertension: Father. Immunizations Vaccine Date Status Comments influenza virus vaccine, inactivated - Not Given Patient Refuses SARS-CoV-2 (COVID-19) mRNA BNT-162b2 vax 09/13/2020 Recorded SARS-CoV-2 (COVID-19) mRNA BNT-162b2 vax 08/22/2020 Recorded diphtheria/pertussis, acel/tetanus adult 01/10/2019 Recorded Normal [facility] Comment on above: Result Comment: Elec tronically Signed By: Chirag PRABHAKAR, Sarah Barajas\.br\Date and Time Signed: 07/04/23 15:25 EST Ambulatory Visit Summaryon 1 07-07-2022 Ambulatory Visit Summary GILMAR ADARSH Aguillon :1970 Visit Date:05/07/2023 Ambulatory Visit Instructions Your Care Team Attending Physician - Yahir PRABHAKAR, Junior Salcedo Primary Care Physician - Génesis Ruano This Is Your Medications List apremilast (Otezla Starter Pack) levothyroxine (levothyroxine 175 mcg (0.175 mg) Tab) metoprolol (metoprolol 25 mg ER Tab) Procedures Performed Thyroidectomy (02/13/2018), Diverticulitis, Entire wisdom tooth, tongue and throat biopsy. What to do next Scheduled Follow-Up Appointments Saturday 3:00 PM EDT With: Junior Sinclair MD Where: [facility] Normal [facility] CMPon 05-07-2023 Albumin [Mass/Vol] 4.2 g/dL Normal 3.3-5.0 [facility] Comment on above: Performed By: #### 2 [id number] ####[facility] [id number] [place] [address] Albumin/Globulin (S) [Mass conc ratio] 1.3 Normal 1.1-2.2 [facility] Comment on above: Performed By: #### 2 [id number] ####[facility] [id number] [place] [address] ALP [Catalytic activity/Vol] 63 Int._Unit/L Normal 21-98 [facility] Comment on above: Performed By: #### 2 [id number] ####[id number] [place] [address] ALT No additional P-5'-P [Catalytic activity/Vol] 44 Int._Unit/L Normal 6-46 [facility] Comment on above: Performed By: #### 2 [id number], [id number], [id number] ####[facility] [address] [place] [address] Anion gap [Moles/Vol] 12 mmol/L Normal 6-16 [facility] Comment on above: Performed By: #### 2 [id number], [id number], [id number] ####[facility] [address] [place] [address] AST [Catalytic activity/Vol] 38 Int._Unit/L Normal 5-43 [facility] Comment on above: Performed By: #### 2 [id number], [id number], [id number] ####[facility] [address] [place] [address] Bilirubin [Mass/Vol] 0.6 mg/dL Normal 0.0-1.1 [facility] Comment on above: Performed By: #### 2 [id number], [id number], [id number] ####[facility] [address] [place] [address] Calcium [Mass/Vol] 9.6 mg/dL Normal 8.9-11.1 [facility] Comment on above: Performed By: #### 2 080190, [id number], [id number] ####[facility] [address] [place] [address] Chloride [Moles/Vol] 101 mmol/L Normal 101-111 [facility] Comment on above: Performed By: #### 2 107936, [id number], [id number] ####[facility] [address] [place] [address] CO2 [Moles/Vol] 28 mmol/L Normal 21-31 [facility] Comment on above: Performed By: #### 2 091684, [id number], [id number] ####[facility] [address] [place] [address] Creatinine [Mass/Vol] 1.0 mg/dL Normal 0.5-1.3 [facility] Comment on above: Performed By: #### 2 [id number], [id number], [id number] ####[facility] [address] [place] [address] Globulin (S) [Mass/Vol] 3.2 g/dL Normal 1.4-4.0 [facility] Comment on above: Performed By: #### 2 134255, [id number], [id number] ####[facility] [address] [place] [address] Glucose [Mass/Vol] 98 mg/dL Normal 55-199 [facility] Comment on above: Result Comment: If t his glucose result represents a fasting glucose, interpretation should refer to the following reference range: 55-99 mg/dL Performed By: #### 2 [id number], [id number], [id number] ####[facility] [address] [place] [address] Potassium [Moles/Vol] 4.3 mmol/L Normal 3.5-5.3 [facility] Comment on above: Performed By: #### 2 102128, [id number], [id number] ####[facility] [address] [place] [address] Protein [Mass/Vol] 7.4 g/dL Normal 6.0-7.8 [facility] Comment on above: Performed By: #### 2 533454, [id number], [id number] ####[address] [place] [address] Sodium [Moles/Vol] 137 mmol/L Normal 135-145 [facility] Comment on above: Performed By: #### 2 692874, [id number], [id number] ####[facility] [address] [place] [address] Urea nitrogen [Mass/Vol] 10 mg/dL Normal 5-21 [facility] Comment on above: Performed By: #### 2 054606, [id number], [id number] ####[facility] [address] [place] [address] Urea nitrogen/Creatinin e [Mass ratio] 10 No Units Normal 10-20 [facility] Comment on above: Performed By: #### 2 649551, [id number], [id number] ####[address] [place] [address] Nurse Consultation Noteon Nurse Consultation Note Reason for Visit Here for BP check and lab draw. BP Lt arm 160/82 after lab draw rechecked BP 140/76 right arm Assessment/Plan HTN (hypertension) (I10: Essential (primary) hypertension) CAGLE (nonalcoholic steatohepatitis) (K75.81: Nonalcoholic steatohepatitis (CAGLE)) Medications levothyroxine 175 mcg (0.175 mg) Tab, 175 mcg= 1 tab(s), Oral, Daily, 1 refills metoprolol 25 mg ER Tab, 25 mg= 1 tab(s), Oral, Daily Otezla Starter Pack, Not taking Allergies OXcarbazepine (Unknown) Pollen (Unknown) Zoloft (Unknown) Immunizations Vaccine Date Status Comments influenza virus vaccine, inactivated - Not Given Patient Refuses SARS-CoV-2 (COVID-19) mRNA BNT-162b2 vax 09/13/2020 Recorded SARS-CoV-2 (COVID-19) mRNA BNT-162b2 vax 08/22/2020 Recorded diphtheria/pertussis, acel/tetanus adult 01/10/2019 Recorded Normal [facility] TSH With T4fr Reflexon 05-07 TSH Qn 1.89 m[IU]/L Normal 0.34-5.60 [facility] Comment on above: Performed By: #### 2 095461, [id number], [id number] ####[facility] [address] [place] [address] eGFRon 05-07-2023 GFR/1.73 sq M.predicted among non-blacks MDRD (S/P/Bld) [Vol rate/Area] 90 mL/min/1.73 m2 Normal >=59 [facility] Comment on above: Order Comment: Order added by Discern Expert. 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 Kidney failure is indicated at less than 15 mL/min/1.73m2. Performed By: #### 2 782745, [id number], [id number] ####[facility] [address] [place] [address] Ambulatory Visit Summaryon 1 06-29-2022 Ambulatory Visit Summary ADARSH SCHAFER Pal :1970 Visit Date:04/29/2023 Ambulatory Visit Instructions Your Diagnosis Primary hypertension Nonalcoholic steatohepatitis (CAGLE) Thyroid disease BMI 28.0-28.9,adult Overweight Nonsmoker Your Care Team Attending Physician - Yahir PRABHAKAR, Junior Salcedo Primary Care Physician - Génesis Ruano This Is Your Medications List apremilast (Otezla Starter Pack) levothyroxine (levothyroxine 175 mcg (0.175 mg) Tab) metoprolol (metoprolol 25 mg ER Tab) Procedures Performed Thyroidectomy (02/13/2018), Diverticulitis, Entire wisdom tooth, tongue and throat biopsy. Discharge Vitals Temperature (Oral) 37.0 ?C Heart Rate (Peripheral) 82 Respiratory Rate 16 Blood Pressure 162/80 Height 182.88 cm Height 72 in Weight 93.7 kg Weight 206.14 lb BMI 28.02 What to do next Scheduled Follow-Up Appointments Saturday 3:00 PM EDT With: Yahir PRABHAKAR, Junior Salcedo Where: [facility] Family Medicine Office/Clini c Noteon 04-29-2023 Family Medicine Office/Clinic Note HPI Staff Adarsh is a 52 year old male presenting to discuss lab results re: his CAGLE Labs done Feb 2023 at [facility] unknown dr ordered them Sees Dr Tavera for his CAGLE and had a fibro scan brought his report with him for you to see flu: refused questions/concerns: has dull pain right side /rib area History of Present Illness Here to establish with me today. Reviewed labs and fibro scan. Review of Systems PHQ Score Initial Depression Screen Score: 0 SCORE Physical Exam Vitals & Measurements T: 37.0 ?C(Oral) HR: 82(Peripheral) RR: 16 BP: 162/80 SpO2: 98% HT: 72 in HT: 182.88 cm WT: 93.7 kg WT: 206.14 lb BMI: 28.02 General: alert, no acute distress ENMT: oral mucosa moist, Cardiovascular: regular rate and rhythm, normal peripheral perfusion Respiratory: Lungs CTA, respirations non labored Extremities: no deformity, no trauma Neurological: oriented x 4, LOC appropriate for age, CN II-XII intact, motor strength equal & normal bilaterally, speech normal Abdomen: Soft, Nontender, Non-distended, + BS Assessment/Plan 1. Primary hypertension (I10: Essential (primary) hypertension) - Elevated today. - Will have the patient come in for a nurse visit for recheck 2. Nonalcoholic steatohepatitis (CAGLE) (K75.81: Nonalcoholic steatohepatitis (CAGLE)) - Will send to GI for a second opinion - Especially given the RUQ abdominal pain 3. Thyroid disease (E07.9: Disorder of thyroid, unspecified) - Will recheck thyroid if labs have not been done recently. - Will request labs 4. BMI 28.0-28.9,adult (Z68.28: Body mass index [BMI] 28.0-28.9, adult) - BMI education uploaded 5. Overweight (E66.3: Overweight) - Diet and exercise advised 6. Nonsmoker (Z78.9: Other specified health status) - Please continue to not smoke. Follow-up No qualifying data available Patient Education BMI for Adults Problem List/Past Medical History Ongoing Ankylosis Anxiety Cervical radiculopathy, chronic Diverticulitis Nonalcoholic steatohepatitis (CAGLE) Primary hypertension Psoriasis Seasonal allergies Thyroid disease Tinnitus of left ear Historical No qualifying data Procedure/Surgical History Thyroidectomy (02/13/2018), Diverticulitis, Entire wisdom tooth, tongue and throat biopsy. Medications levothyroxine 175 mcg (0.175 mg) Tab, 175 mcg= 1 tab(s), Oral, Daily, 1 refills metoprolol 25 mg ER Tab, 25 mg= 1 tab(s), Oral, Daily Otezla Starter Pack, Not taking Allergies OXcarbazepine (Unknown) Pollen (Unknown) Zoloft (Unknown) Social History Alcohol - High Risk, 01/07/2018 Current, Beer, 3-5 times per week, 01/07/2018 Substance Abuse - Denies Substance Abuse, 01/07/2018 Tobacco - Denies Tobacco Use, 01/07/2018 Never (less than 100 in lifetime) Tobacco Use:. Former smokeless tobacco user, quit more than 30 days ago Smokeless Tobacco Use:., 04/29/2023 Family History Hypertension: Father. Immunizations Vaccine Date Status Comments influenza virus vaccine, inactivated - Not Given Patient Refuses SARS-CoV-2 (COVID-19) mRNA BNT-162b2 vax 09/13/2020 Recorded SARS-CoV-2 (COVID-19) mRNA BNT-162b2 vax 08/22/2020 Recorded diphtheria/pertussis, acel/tetanus adult 01/10/2019 Recorded Normal [facility] Comment on above: Result Comment: Elec tronically Signed By: Yahir PRABHAKAR, Junior Flores.br\Date and Time Signed: 04/29/23 15:47 EST Patient Educationon 04-29-20 Patient Education Nutrition BMI for Adults What is BMI? Body mass index (BMI) is a number that is calculated from a person's weight and height. BMI can help estimate how much of a person's weight is composed of fat. BMI does not measure body fat directly. Rather, it is an alternative to procedures that directly measure body fat, which can be difficult and expensive. BMI can help identify people who may be at higher risk for certain medical problems. What are BMI measurements used for? BMI is used as a screening tool to identify possible weight problems. It helps determine whether a person is obese, overweight, a healthy weight, or underweight. BMI is useful for: ? Identifying a weight problem that may be related to a medical condition or may increase the risk for medical problems. ? Promoting changes, such as changes in diet and exercise, to help reach a healthy weight. BMI screening can be repeated to see if these changes are working. How is BMI calculated? BMI involves measuring your weight in relation to your height. Both height and weight are measured, and the BMI is calculated from those numbers. This can be done either in [place] or metric measurements. Note that charts and online BMI calculators are available to help you find your BMI quickly and easily without having to do these calculations yourself. To calculate your BMI in [place] measurements: 1. Measure your weight in pounds (lb). 2. Multiply the number of pounds by 703. ? For example, for a person who weighs 180 lb, multiply that number by 703, which equals 126,540. 3. Measure your height in inches. Then multiply that number by itself to get a measurement called inches squared. ? For example, for a person who is 70 inches tall, the inches squared measurement is 70 inches x 70 inches, which equals 4,900 inches squared. 4. Divide the total from step 2 (number of lb x 703) by the total from step 3 (inches squared): 126,540 ? 4,900 = 25.8. This is your BMI. To calculate your BMI in metric measurements: 1. Measure your weight in kilograms (kg). 2. Measure your height in meters (m). Then multiply that number by itself to get a measurement called meters squared. ? For example, for a person who is 1.75 m tall, the meters squared measurement is 1.75 m x 1.75 m, which is equal to 3.1 meters squared. 3. Divide the number of kilograms (your weight) by the meters squared number. In this example: 70 ? 3.1 = 22.6. This is your BMI. What do the results mean? BMI charts are used to identify whether you are underweight, normal weight, overweight, or obese. The following guidelines will be used: ? Underweight: BMI less than 18.5. ? Normal weight: BMI between 18.5 and 24.9. ? Overweight: BMI between 25 and 29.9. ? Obese: BMI of 30 or above. Keep these notes in mind: ? Weight includes both fat and muscle, so someone with a muscular build, such as an athlete, may have a BMI that is higher than 24.9. In cases like these, BMI is not an accurate measure of body fat. ? To determine if excess body fat is the cause of a BMI of 25 or higher, further assessments may need to be done by a health care provider. ? BMI is usually interpreted in the same way for men and women. Where to find more information For more information about BMI, including tools to quickly calculate your BMI, go to these websites: ? Centers for Disease Control and Prevention: www.cdc.gov ? [place] [employer]: www.heart.org ? National Heart, Lung, and Blood [place]: www.nhlbi.nih.gov Summary ? Body mass index (BMI) is a number that is calculated from a person's weight and height. ? BMI may help estimate how much of a person's weight is composed of fat. BMI can help identify those who may be at higher risk for certain medical problems. ? BMI can be measured using [place] measurements or metric measurements. ? BMI charts are used to identify whether you are underweight, normal weight, overweight, or obese. This information is not intended to replace advice given to you by your health care provider. Make sure you discuss any questions you have with your health care provider. Document Revised: 02/17/2020 Document Reviewed: 12/25/2019 [employer] Patient Education ? 2022 [employer] Normal [facility] Lab Reportson 03-27-2023 Lab Reports [id number] [facility] Lab Reportson 03-20-2023 Lab Reports [id number] [facility] Consenton 03-15-2023 Consent [id number]#[id number] [facility] Nurse Consultation Noteon Nurse Consultation Note Reason for Visit Here for kenalog injection for allergic rhinitis, verbal order by Génesis PINEDA Medications clobetasol propionate 0.05% top oint, 1 moises, Topical, BID, Not taking diclofenac sodium 100 mg ER Tab, 100 mg= 1 tab(s), Oral, Daily, Not taking gentamicin Opth 0.3% Araseli, 1 drop(s), OPTH, QID, Not taking hyoscyamine 0.125 mg oral tablet, disintegrating, 0.125 mg= 1 tab(s), Oral, q4hr, PRN ketoconazole Top 2% Crm, 1 moises, Topical, Daily, Not taking levothyroxine 175 mcg (0.175 mg) Tab, 175 mcg= 1 tab(s), Oral, Daily Otezla Starter Pack Allergies OXcarbazepine (Unknown) Pollen (Unknown) Zoloft (Unknown) Immunizations Vaccine Date Status SARS-CoV-2 (COVID-19) mRNA BNT-162b2 vax 09/13/2020 Recorded SARS-CoV-2 (COVID-19) mRNA BNT-162b2 vax 08/22/2020 Recorded diphtheria/pertussis, acel/tetanus adult 01/10/2019 Recorded Normal [facility] Formson 01-23-2023 Forms [id number]:127 Normal [facility] RAD - MISCon 01-14-2023 RAD - MISC [id number]:127 Normal [facility] US SINGLE QUAD RT UPPERon US SINGLE QUAD RT UPPER EXAM: US SINGLE QUAD RT UPPER HISTORY: . Liver function tests abnormal . COMPARISON: None. TECHNIQUE: Grayscale and color imaging was performed FINDINGS: The pancreas appears normal. The liver is normal in size. There is mild increased echogenicity of liver consistent with fatty infiltration of liver. Color-flow is noted in the portal and hepatic veins. The gallbladder appears normal with no stones or sludge identified. No gallbladder wall thickening is noted. Common bile duct measures 3 mm. Right kidney measures 11 x 5 x 4.8 cm. Color-flow is noted. No solid renal cortical masses or hydronephrosis is noted. IMPRESSION: 1. Increased echogenicity of liver consistent with fatty infiltration of liver. 2. The remainder the right upper quadrant is unremarkable. Electronically authenticated by: HARSHIL AVILES Date: 2022-06-29 07:[address] [facility] HEPATITIS PANEL, ACUTEon HBsAg Screen Negative Normal Negative [facility] Comment on above: Performed By: #### H EPACUT #### [facility] [address] [place] [address] Dr. Raul Zaidi HCV AB <0.1 Normal 0.0-0.9 [facility] Comment on above: Performed By: #### H EPACUT #### [facility] [address] [address] [address] Raul Zaidi Hep A Ab, IgM Negative Normal Negative [facility] Comment on above: Performed By: #### H EPACUT #### [facility] [address] [address] [address] Raul Zaidi Hep B Core Ab, IgM Negative Normal Negative [facility] Comment on above: Performed By: #### H EPACUT #### [facility] [address] [address] [address] Raul Zaidi Interpretation: Comment Normal [facility] Comment on above: Result Comment: Nega tive Not infected with HCV, unless recent infection is suspected or other evidence exists to indicate HCV infection. Performed By: #### H EPACUT #### [facility] [address] [place] [address] Dr. Raul Zaidi CBC AUTO DIFFon 06-05-2022 BASO # 0.0 103/ul Normal 0.0-0.1 [facility] Comment on above: Performed By: #### C BC #### [facility] [address] [place] [address] Dr. Raul Ziadi Basophils/100 WBC (Bld) 0.5 % Normal 0.2-2.0 [facility] Comment on above: Performed By: #### C BC #### [facility] [address] [place] [address] Dr. Raul Zaidi EO # 0.1 103/ul Normal 0.0-0.[address] [facility] Comment on above: Performed By: #### C BC #### [facility] [address] [place] [address] Dr. Raul Zaidi Eosinophils/100 WBC (Bld) 1.2 % Normal 0.9-7.0 [facility] Comment on above: Performed By: #### C BC #### [facility] [address] [place] [address] Dr. Raul Zaidi Erythrocyte distribution width (RBC) [Ratio] 13.0 % Normal 11.0-15.0 [facility] Comment on above: Performed By: #### C BC #### [facility] [address] [place] [address] Dr. Raul Zaidi Hematocrit (Bld) [Volume fraction] 41.9 % Critically low 42.0-54.0 [facility] Comment on above: Performed By: #### C BC #### [facility] [address] [place] [address] Dr. Raul Zaidi Hemoglobin (Bld) [Mass/Vol] 14.3 g/dL Normal 14.0-18.0 [facility] Comment on above: Performed By: #### C BC #### [facility] [address] [place] [address] Dr. Raul Zaidi IG # 0.06 10e3/ul Critically high 0.00-0.03 [facility] Comment on above: Performed By: #### C BC #### [facility] [address] [place] [address] Dr. Raul Zaidi IG % 0.8 % Critically high 0.0-0.[address] [facility] Comment on above: Performed By: #### C BC #### [facility] [address] [place] [address] Dr. Raul Zaidi LYMPH # 1.6 103/ul Normal 1.2-3.8 [facility] Comment on above: Performed By: #### C BC #### [facility] [address] [address] [address] Raul Zaidi Lymphocytes/100 WBC (Bld) 20.9 % Normal 20.5-60.0 [facility] Comment on above: Performed By: #### C BC #### [facility] [address] [place] [address] Dr. Raul Zaidi MANUAL DIFF REQ NO Normal [facility] Comment on above: Performed By: #### C BC #### [facility] [address] [place] [address] Dr. Raul Zaidi MCH (RBC) [Entitic mass] 31.5 pg Normal 25.9-34.0 [facility] Comment on above: Performed By: #### C BC #### [facility] [address] [place] [address] Dr. Raul Zaidi MCHC (RBC) [Mass/Vol] 34.1 g/dL Normal 29.9-35.2 [facility] Comment on above: Performed By: #### C BC #### [facility] [address] [place] [address] Dr. Raul Zaidi MCV (RBC) [Entitic vol] 92.3 fL Normal 80.0-94.0 [facility] Comment on above: Performed By: #### C BC #### [facility] [address] [place] [address] Dr. Raul Zaidi MONO # 0.7 103/ul Normal 0.3-0.[address] [facility] Comment on above: Performed By: #### C BC #### [facility] [address] [place] [address] Dr. Raul Zaidi Monocytes/100 WBC (Bld) 9.3 % Normal 1.7-12.[address] [facility] Comment on above: Performed By: #### C BC #### [facility] [address] [address] [address] Raul Zaidi NEUT # 5.2 103/ul Normal 1.4-6.[address] [facility] Comment on above: Performed By: #### C BC #### [facility] [address] [place] [address] Dr. Raul Zaidi Neutrophils/100 WBC (Bld) 67.3 % Normal 43.0-75.[address] [facility] Comment on above: Performed By: #### C BC #### [facility] [address] [place] [address] Dr. Raul Zaidi Platelet mean volume (Bld) [Entitic vol] 8.4 fL Critically low 9.5-13.[address] [facility] Comment on above: Performed By: #### C BC #### [facility] [address] [place] [address] Dr. Raul Zaidi PLT 243 103/ul Normal 150-[address] [facility] Comment on above: Performed By: #### C BC #### [facility] [address] [place] [address] Dr. Raul Zaidi RBC 4.54 106/ul Critically low 4.70-6.[address] [facility] Comment on above: Performed By: #### C BC #### [facility] [address] [place] [address] Dr. Raul Zaidi WBC 7.7 103/ul Normal 4.0-11.[address] [facility] Comment on above: Performed By: #### C BC #### [facility] [address] [place] [address] Dr. Raul Zaidi LIPID PROFILEon 06-05-2022 CHOL-HDL RATIO NORM SEE BELOW Normal [facility] Comment on above: Result Comment: 3.3 - 4.4 LOW RISK 4.4 - 7.1 AVERAGE RISK 7.1 - 11.0 MODERATE RISK >11.0 HIGH RISK Performed By: #### L IPID, CMP #### [facility] [address] [place] [address] Dr. Raul Zaidi Cholesterol [Mass/Vol] 225 mg/dL Critically high <=[address] [facility] Comment on above: Performed By: #### L IPID, CMP #### [facility] [address] [address] [address] Raul Zaidi Cholesterol in HDL [Mass/Vol] 97 mg/dL Critically high 40-60 [facility] Comment on above: Performed By: #### L IPID, CMP #### [facility] [address] [address] [address] Raul Zaidi Cholesterol in LDL [Mass/Vol] 113.2 mg/dL Normal [facility] Comment on above: Performed By: #### L IPID, CMP #### [facility] [address] [address] [address] Raul Zaidi Cholesterol.total/ Cholesterol in HDL [Mass ratio] 2.3 {ratio} Normal [facility] Comment on above: Performed By: #### L IPID, CMP #### [facility] [address] [address] [address] Raul Zaidi HDL NORMAL > or = 60 mg/dl - LO W CARDIOVASCULAR RISK <40 mg/dl - HIGH CARDIOVASCULAR RISK Normal [facility] Comment on above: Performed By: #### L IPID, CMP #### [facility] [address] [place] [address] Dr. Raul Zaidi LDL CALC NORMAL SEE BELOW Normal [facility] Comment on above: Result Comment: <100 mg/dl OPTIMAL 100 - 129 mg/dl NEAR OR ABOVE OPTIMAL 130 - 159 mg/dl BORDERLINE HIGH 160 - 189 mg/dl HIGH >190 mg/dl VERY HIGH Performed By: #### L IPID, CMP #### [facility] [address] [address] [address] Raul Zaidi Triglyceride [Mass/Vol] 74 mg/dL Normal <=[address] [facility] Comment on above: Performed By: #### L IPID, CMP #### [facility] [address] [address] [address] Raul Zaidi VLDL CALC 14.8 mg/dL Normal [facility] Comment on above: Performed By: #### L IPID, CMP #### [facility] [address] [address] [address] Raul Zaidi PROF 14(COMP METB)on 022 Albumin [Mass/Vol] 4.0 g/dL Normal 3.4-5.0 [facility] Comment on above: Performed By: #### L IPID, CMP #### [facility] [address] [address] [address] Raul Zaidi Albumin/Globulin [Mass ratio] 0.9 {ratio} Normal [facility] Comment on above: Performed By: #### L IPID, CMP #### [facility] [address] [address] [address] Raul Zaidi ALP [Catalytic activity/Vol] 57 U/L Normal 46-116 [facility] Comment on above: Performed By: #### L IPID, CMP #### [facility] [address] [address] [address] Raul Zaidi ALT [Catalytic activity/Vol] 82 U/L Critically high 16-[address] [facility] Comment on above: Performed By: #### L IPID, CMP #### [facility] [address] [address] [address] Raul Zaidi Anion gap [Moles/Vol] 14.9 mmol/L Normal [facility] Comment on above: Performed By: #### L IPID, CMP #### [facility] [address] [address] [address] Raul Zaidi AST [Catalytic activity/Vol] 76 U/L Critically high 15-[address] [facility] Comment on above: Performed By: #### L IPID, CMP #### [facility] [address] [address] [address] Raul Zaidi Bilirubin [Mass/Vol] 0.9 mg/dL Normal 0.2-1.0 [facility] Comment on above: Performed By: #### L IPID, CMP #### [facility] [address] [address] [address] Raul Zaidi Calcium [Mass/Vol] 9.3 mg/dL Normal 8.5-10.[address] [facility] Comment on above: Performed By: #### L IPID, CMP #### [facility] [address] [address] [address] Raul Zaidi Chloride [Moles/Vol] 99 mmol/L Normal 98-[address] [facility] Comment on above: Performed By: #### L IPID, CMP #### [facility] [address] [address] [address] Raul Zaidi CO2 [Moles/Vol] 28.4 mmol/L Normal 21.0-32.[address] [facility] Comment on above: Performed By: #### L IPID, CMP #### [facility] [address] [address] [address] Raul Zaidi Creatinine [Mass/Vol] 0.72 mg/dL Normal 0.70-1.[address] [facility] Comment on above: Performed By: #### L IPID, CMP #### [facility] [address] [place] [address] Dr. Raul Zaidi EGFR-AF SLOVENIAN >60 Normal >=[address] [facility] Comment on above: Performed By: #### L IPID, CMP #### [facility] [address] [place] [address] Dr. Raul Zaidi EGFR-NON AF SLOVENIAN >60 Normal >=60 [facility] Comment on above: Performed By: #### L IPID, CMP #### [facility] [address] [place] [address] Dr. Raul Zaidi Globulin (S) [Mass/Vol] 4.3 g/dL Normal [facility] Comment on above: Performed By: #### L IPID, CMP #### [facility] [address] [place] [address] Dr. Raul Zaidi Glucose [Mass/Vol] 83 mg/dL Normal 74-[address] [facility] Comment on above: Performed By: #### L IPID, CMP #### [facility] [address] [place] [address] Dr. Raul Zaidi Potassium [Moles/Vol] 4.3 mmol/L Normal 3.5-5.[address] [facility] Comment on above: Performed By: #### L IPID, CMP #### [facility] [address] [address] [address] Raul Zaidi Protein [Mass/Vol] 8.3 g/dL Critically high 6.4-8.2 T [facility] Comment on above: Performed By: #### L IPID, CMP #### [facility] [address] [address] [address] Raul Zaidi Sodium [Moles/Vol] 138 mmol/L Normal 136-145 [facility] Comment on above: Performed By: #### L IPID, CMP #### [facility] [address] [address] [address] Raul Zaidi Urea nitrogen [Mass/Vol] 5.0 mg/dL Critically low 7.0-18.0 [facility] Comment on above: Performed By: #### L IPID, CMP #### [facility] [address] [address] [address] Raul Zaidi Urea nitrogen/Creatinin e [Mass ratio] 6.9 mg/mg Normal [facility] Comment on above: Performed By: #### L IPID, CMP #### [facility] [address] [address] [address] Raul Zaidi Vital Signs Date Time Vital Sign Value Performing Clinician Facility 01-23-2023 14:15-0400 Body height 182.88 cm Imad Asaad Other [facility] Other 01-23-2023 14:15-0400 Body mass index (BMI) [Ratio] 28.95 kg/m2 Imad Asaad Other [facility] Other 01-23-2023 14:15-0400 Body weight 96.84 kg Imad Asaad Other [facility] Other 01-23-2023 14:15-0400 Diastolic blood pressure 84 mm[Hg] Imad Asaad Other [facility] Other 01-23-2023 14:15-0400 Systolic blood pressure 139 mm[Hg] Imad Asaad Other [facility] Other Encounters Encounter Date Encounter Type Care Provider Facility Start: 12-24-2023 ambulatory Smithjuan Bahenamini [facility] Start: 11-11-2023 End: 11-11-2023 ambulatory Dominique Vo MD Facility:[facility] Start: 11-01-2023 End: 11-01-2023 ambulatory Sarah Beard Facility:[facility] Start: 10-28-2023 ambulatory Junior Sinclair [facility] Start: 09-30-2023 End: 09-30-2023 ambulatory Dominique Vo MD Facility:[facility] Start: 08-29-2023 End: 08-29-2023 ambulatory Junior Sinclair Facility:[facility] [place] [facility] Start: 07-10-2023 End: 07-10-2023 ambulatory Génesis L Shanika Facility:[facility] [facility] Start: 07-04-2023 End: 07-04-2023 ambulatory Junior Sinclair Facility:[facility] Start: 05-14-2023 ambulatory Génesis L Shanika Facility: [facility] Start: 05-09-2023 ambulatory Génesis Shanika [facility] Start: 05-07-2023 End: 05-07-2023 ambulatory Junior Sinclari Facility:[facility] Start: 04-29-2023 End: 04-29-2023 ambulatory Junior Sinclair Facility:[facility] [facility] Start: 03-14-2023 End: 03-14-2023 ambulatory Génesis L Shanika Facility:[facility] [facility] Start: 02-21-2023 End: 02-21-2023 ambulatory Imad Asaad Facility:[facility] Start: 02-21-2023 End: 02-21-2023 ambulatory MD Junior Sinclair Work Phone: [facility] Work Phone: Start: 02-21-2023 End: 02-21-2023 Patient encounter procedure MD Junior Sinclair Work Phone: [facility] Work Phone: Start: 01-25-2023 ambulatory Génesis Voss Facility: [facility] Start: 01-23-2023 End: 01-23-2023 ambulatory Imad Asaad Other [facility] Other Start: 01-23-2023 Office outpatient ne w 45 minutes Imad Asaad [facility] Start: 06-29-2022 End: 06-30-[address] ANA ROSADO . Facility: Start: 06-19-2022 End: 06-20-[address] ANA ROSADO . Facility: Start: 06-08-2022 Encounter for genera l adult medical examination without abnormal findings DR ANA ROSADO . [facility] Start: 06-05-2022 End: 06-06-[address] ANA ROSADO . Facility: Start: 06-05-2022 End: 06-06-2022 Encounter for general adult medical examination without abnormal findings DR ANA ROSADO . Facility: Procedures Date Procedure Procedure Detail Performing Clinician Start: 02-21-2023 Ultrasound elastogra phy of liver MD Junior Sinclair Work Phone: Start: 06-05-[address] ANA TORRES . Comment on above: Performed By: #### P SAD #### [facility] [address] [place] [address] Dr. Raul Zaidi Plan of Treatment Date Care Activity Detail Author Start: 02-21-2023 [facility] Immunizations Immunization Date Immunization Notes Care Provider Fa cility 01-10-2019 tetanus toxoid, redu damaris diphtheria toxoid, and acellular pertussis vaccine, adsorbed MD Junior Sinclair Work Phone: [facility] Payers Date Payer Category Payer Unknown [id number] 2023 Unknown 2023 Self-pay [id number] 1970 Unknown [id number] 2.16.84 [id number] 1969 Unknown [id number] 2.16.84 0.1.610500.3.579.2.593 1969 Unknown [id number] 2.16.84 0.1.715474.3.579.2.593 1969 Unknown [id number] 2.16. 840.1.257997.3.579.2.196 1969 Unknown [id number] 2.16. 840.1.110736.3.579.2.196 1969 Unknown [id number] 2.16.8 40.1.216024.3.579.2.727 1969 Unknown [id number] 2.16.8 40.1.830917.3.579.2.727 1969 Unknown [id number] 2.16.8 40.1.914593.3.579.2.727 1969 Unknown [id number] 2.16.8 40.1.071277.3.579.2.727 1969 Unknown [id number] 2.16.8 40.1.130384.3.579.2.727 1969 Unknown [id number] 2.16.8 40.1.436126.3.579.2.727 1969 Unknown [id number] 2.16.8 40.1.208982.3.579.2.727 1969 Unknown [id number] 2.16.8 40.1.262183.3.579.2.727 1969 Unknown [id number] 2.16.8 40.1.422509.3.579.2.727 1969 Unknown [id number] 2.16.8 40.1.478320.3.579.2.727 1969 Unknown [id number] 2.16.8 40.1.627522.3.579.2.727 1969 Unknown [id number] 2.16.8 40.1.980021.3.579.2.727 1959 Unknown [id number] Unknown [id number] 2.16.8 40.1.849606.3.579.2.531 Social History Date Type Detail Facility Sex Assigned At [facility] Other Start: 01-10-2019 Tobacco smoking stat us [facility] Never smoked tobacco (finding) [facility] Start: 1970 Sex Assigned At Male F [facility] Goals Date Patient Goal Desired Activity /State History and physical note 11-05-2023 Note Date & Type Note Facility 11-05-2023 Note [id number] #[id number] [facility] Clinical Note 08-29-2023 Note Date & Type Note Facility 08-29-2023 Note HPI Staff Adarsh is a 52 year old male presenting to discuss a referral to rheumatology for athritis in neck whoever Dr Sinclair recommends Patient would like a kenalog shot for allergies also ( has gotten these in the past with Dr Rosado on a regular basis) questions/concerns: Saw Dr Beard and was told he does not have CAGLE based it on his liver numbers and says just mild steatosis History of Present Illness See staff HPI. - Pt was diagnosed with Arthritis in the neck. - Pt states pain yesterday was so bad he could barely move. - Wants to make sure he does not have RA. - Asking for a referral to Rheum. Review of Systems PHQ Score Initial Depression Screen Score: 0 SCORE Physical Exam Vitals & Measurements T: 36.5 ?C(Temporal Artery) HR: 76(Peripheral) RR: 16 BP: 122/80 SpO2: 100% HT: 62 in HT: 158 cm WT: 94.2 kg WT: 207.24 lb BMI: 37.73 General: alert, no acute distress ENMT: oral mucosa moist, Cardiovascular: regular rate and rhythm, normal peripheral perfusion Respiratory: Lungs CTA, respirations non labored Extremities: no deformity, no trauma Neurological: oriented x 4, LOC appropriate for age, CN II-XII intact, motor strength equal & normal bilaterally, speech normal Abdomen: Soft, Nontender, Non-distended, + BS Assessment/Plan Total time spent preparing for the encounter, evaluating and assessing the patient, documenting the visit, and ordering appropriate follow-up work was 30 minutes. 1. Seasonal allergies (J30.2: Other seasonal allergic rhinitis) - Will do a kenaolg shot Ordered: [facility] External Ambulatory Referral [facility] External Ambulatory Referral 2. Primary hypertension (I10: Essential (primary) hypertension) - At goal. Ordered: [facility] External Ambulatory Referral [facility] External Ambulatory Referral 3. Cervical radiculopathy, chronic (M54.12: Radiculopathy, cervical region) - Will send to pain. - Then will send to Rheum - Will have the patient follow up in 2 months - Unsure if Rheum is necessary, but given other medical hx will have the patient seen. Ordered: [facility] External Ambulatory Referral [facility] External Ambulatory Referral 4. Steatosis, liver (K76.0: Fatty (change of) liver, not elsewhere classified) - Keep following with GI. Ordered: [facility] External Ambulatory Referral [facility] External Ambulatory Referral 5. Cervical arthritis (M47.812: Spondylosis without myelopathy or radiculopathy, cervical region) As per number 3 Ordered: [facility] External Ambulatory Referral Follow-up No qualifying data available Patient Education Hypertension, Adult Problem List/Past Medical History Ongoing Ankylosis Anxiety Cervical radiculopathy, chronic Diverticulitis Primary hypertension Psoriasis Seasonal allergies Sinusitis Steatosis, liver Thyroid disease Tinnitus of left ear Historical No qualifying data Procedure/Surgical History Thyroidectomy (02/13/2018), Diverticulitis, Entire wisdom tooth, tongue and throat biopsy. Medications levothyroxine 175 mcg (0.175 mg) Tab, 175 mcg= 1 tab(s), Oral, Daily, 1 refills metoprolol 25 mg ER Tab, 25 mg= 1 tab(s), Oral, Daily Allergies OXcarbazepine (Unknown) Pollen (Unknown) Zoloft (Unknown) Social History Alcohol - High Risk, 01/07/2018 Current, Beer, 3-5 times per week, 01/07/2018 Substance Abuse - Denies Substance Abuse, 01/07/2018 Tobacco - Denies Tobacco Use, 01/07/2018 Never (less than 100 in lifetime) Tobacco Use:. Former smokeless tobacco user, quit more than 30 days ago Smokeless Tobacco Use:., 08/29/2023 Family History Hypertension: Father. Immunizations Vaccine Date Status Comments influenza virus vaccine, inactivated - Not Given Patient Refuses SARS-CoV-2 (COVID-19) mRNA BNT-162b2 vax 09/13/2020 Recorded SARS-CoV-2 (COVID-19) mRNA BNT-162b2 vax 08/22/2020 Recorded diphtheria/pertussis, acel/tetanus adult 01/10/2019 Recorded [facility] Comment on above: Result Comment: Elec tronically Signed By: Yahir PRABHAKAR, Junior Flores.br\Date and Time Signed: 08/29/23 07:46 EDT Evaluation note 01-23-2023 Note Date & Type Note Facility 01-23-2023 Evaluation note Encounter Date Diagnosis Assessment Notes Jan, Hepatic steatosis (ICD-10 - K76.0) Jan, Elevated liver enzymes (ICD-10 - R74.8) Jan, Other [facility]rosc[facility] ordered Labs ordered [facility] Other Evaluation note Note Date & Type Note Facility Evaluation note No assessment information availa [facility] Work Phone: History general Narrative - Reported Note Date & Type Note Facility History general Narrative - Reported Type Medical History anxiety Medical History hypertension Surgical History thyroidectomy Surgical History appendectomy Hospitalization History See Above [facility] Other Summary Purpose Family History No Family History Records FoundNo Family History Records FoundNo Family History Records FoundNo Family History Records Found Advance Directives No Advanced Directives Records Found Advance Directive Response Recorded Date/ Time Advance Directives No January 10 019 8:02pm Chief Complaint and Reason for Visit Chief Complaint CAGLE Additional Source Comments (unrecognized sect ion and content) No Status Records FoundNo Status Records FoundNo Status Records FoundNo Status Records Found INFORMATION SOURCE (unrecogn ized section and content) DATE CREATED AUTHOR 10/22/2022 [facility] DATE CREATED AUTHOR AUTHOR'S ORGANIZ ATION 03/11/2023 [facility] DATE CREATED AUTHOR AUTHOR'S ORGANIZ ATION 11/19/2023 [facility] DATE CREATED AUTHOR AUTHOR'S ORGANIZ ATION 11/28/2023 [facility] REASON FOR VISIT (unrecogniz ed section and content) PATIENT IS HERE AT THE REQUE ST OF DR. ROSADO FOR [place] Care Teams (unrecognized sec tion and content) Team Status: Active Member Role Status Dates Junior Sinclair MD Primary Care Provider Active Team Status: Inactive Member Role Status Dates Lory Akers MD Attending Provider Active Junior Sinclair MD Primary Care Provider Active FOR RECORDS PERTAINING TO PATIENTS WHO ARE OR HAVE BEEN ENROLLED IN A CHEMICAL DEPENDENCY/SUBSTANCEABUSE PROGRAM, SOME INFORMATION MAY BE OMITTED. This clinical summary was aggregated from multiple sources. Caution should be exercised in using it in the provision of clinical care. This summary normalizes information from multiple sources, and as a consequence, information in this document may materially change the coding, format and clinical context of patient data. In addition, data may be omitted in some cases. CLINICAL DECISIONS SHOULD BE BASED ON THE PRIMARY CLINICAL RECORDS. [facility]. provides no warranty or guarantee of the accuracy or completeness of information in this document.
[2023-12-16 07:24] VITALS: BP 177/106; PULSE 82; TEMP 36.2; O2SAT 97
[2023-12-16 08:03] VITALS: BP 169/107; PULSE 84; PULSE 85; O2SAT 94
[2023-12-16] MEDS: DEXAMETHASONE SOD PHOS 10 MG/ML VIAL INJ (08:04)
[2023-12-16] MEDS: LIDOCAINE HCL 2% 400 MG/20 ML MDV 5 ML INJ (08:04)
[2023-12-16] MEDS: BUPIVACAINE HCL 0.25% PF 25 MG/10 ML VIAL 5 ML INJ (08:04)
[2023-12-16 08:07] VITALS: BP 166/99
--- NOTE | 2023-12-16 08:12 | P.ON_ITS ---
Date of procedure: 12/16/23 Pre-op diagnosis: Cervical spondylosis without myelopathy Post-op diagnosis: same as pre-op Procedure: Procedure: Right C2-3, 3-4 radiofrequency ablation Medications: Bupivacaine 0.25% 2cc, lidocaine 2% 3cc, dexamethasone 10mg The patient was seen and examined in the preoperative holding area.? The site was marked.? Written informed consent was obtained and placed on the chart.? The patient was brought to the medical procedure unit and placed in the prone position.? A timeout was completed verifying correct patient, procedure, positioning, and special requirements.? The skin overlying the target points, the designated medial branch, were prepped and draped in the usual sterile fashion.? The target point was achieved with a 20-gauge 15 cm with a 10 mm curved active tip radiofrequency cannula under direct fluoroscopic visualization.? The needle was inserted at level C2 on the right side. Needle tip position was confirmed with lateral fluoroscopic position.? Motor stimulation was carried out at 2 Hz up to 5 volts with the absence of extremity activity.? This was repeated at level C3, 4 on right side.?? Sensory stimulation was carried out.? Concordant pain was realized at the above- mentioned sites.? Then radiofrequency lesioning was carried out times 90 seconds at 80 degrees times 2 lesions at each level.? The radiofrequency probe was removed prior to cannula removal.? The above-mentioned injectate was placed in 1 mL increments.? The needle was removed.? Insertion sites were covered.? The patient was taken to the postoperative recovery area and monitored for an appropriate length of time before being found suitable for discharge in the company of a responsible adult. Anesthesia: Local Surgeon: Dominique Vo Pathology: none sent Condition: stable Disposition: no change
== END 2023-12-16 08:17 | disposition home or self-care (01) ==
LOC: SURGOUT 07:09
PROVIDERS: PCP Family Medicine; Visit Provider Anesthesiology
DX: M47.812 Spondylosis without myelopathy or radiculopathy, cervical region (principal)
CPT/HCPCS: 64633; 64634; J0665; J1100

== ENCOUNTER 2023-12-30 07:03 | Day surgery (SDC) | payer OTHER, SELFPAY ==
--- OUTSIDE RECORDS SUMMARY | 2023-12-30 07:06 | XMS_ITS | CCD ---
Author Organization [facility] Care Team Providers Care Sports Bookmaker Name Role Phone PEREZ ., DR ANA [...] ROSADO ., DR ANA Singletary Consulting Unavailable Oswald Imad Unavailable MD Lory Akers Attending Provider [phone] MD Junior Sinclair Primary Care Provider Lory Akers Attending Unavailable Lory Akers Admitting Unavailable Junior Sinclair Primary Care Unavailable Génesis Voss Attending Unavailable Junior Sinclair Attending Unavailable Junior Sinclair Attending Unavailable Génesis Voss Attending Unavailable Génesis Voss Attending Unavailable Junior Sinclair Attending Unavailable Génesis Voss Attending Unavailable Junior Sinclair Attending Unavailable Sarah Beard Talal Admitting Unavaila ble Sarah Beard Attending Unavaila ble Zackery Beardmad Talal Referring Unavaila ble Junior Sinclair Admitting Unavailable Junior Sinclair Attending Unavailable Junior Sinclair Referring Unavailable Sarah Beard Talgirish Attending Unavaila ble Sarah Beard Talal Attending Unavaila ble Tavo PRABHAKAR, Dominique Laughlin Attending Unavailable Tavo PRABHAKAR, Dominique Laughlin Attending Unavailable Dominique Vo MD Attending Unavailable Allergies Allergy Classification Reported Allergen(s) Allergy Type Date of Onset Reaction(s) Facility (1 source) OXcarbazepine; Translations: [OXcarbazepine] Drug Allergy [facility] Repository (1 source) Pollen; Translations: [Pollen] Propensity to adverse reactions (disorder) [facility] Repository (1 source) Sertraline; Translations: [Zoloft] Drug Allergy [facility] Repository Medications Current Medications Medication Drug Class(es) [...] Range Facility Consultation Noteon 11-26-19 Consultation Note [id number]#1.00TIFF [facility] Reminderson 11-14-2023 Reminders - From: Cipriano Bedolla To: [facility] - Reminders/Recalls; Sent: 11/14/2023 17:20:52 EDT Show up: 10/08/2026 17:20:00 EDT Subject: Ambulatory Reminder Due Date/Time: 10/31/2026 17:20:00 EDT Reminder/Recall Repeat colonoscopy in 3 years(2026) due to tubular adenoma > 10 mm Normal [facility] Consultation Noteon 11-11-19 Consultation Note [id number]#1.00TIFF [facility] Consultation Note [id number]#1.00TIFF [facility] Operative Reporton Operative Report [id number]#1.00TIFF [facility] Postoperative Documentson Postoperative Documents [id number]#1.00TIFF [facility] IntraOperative Documentson 0 11-06-2023 IntraOperative Documents [id number]#1.00TIFF [facility] Consenton 11-05-2023 Consent [id number]#1.00TIFF Normal [facility] Discharge Instructionson Discharge Instructions [id number]#1.00TIFF Normal [facility] Consent for Treatmenton 10-09 Consent for Treatment [id number]#1.00TIFF Normal [facility] Discharge Instructionson Discharge Instructions ADARSH SCHAFER Pal :1970 Visit Date:11/01/2023 Inpatient Discharge Instructions Your Care Team Admitting Physician - Sarah Beard MD Referring Physician - Sarah Beard MD Reason for Your Visit CAGLE FATTY LIVER [...] Follow-Up Appointments Saturday 2:00 PM EDT Where: [facility] New Follow Up Appointments after Discharge Follow Up with Sarah Beard When: Comments: office will call for follow up Where: Timbo Solano, [facility] [address] [address] [phone] Business (1) Medications What How Much When [...] activities are safe for you. ? Take mlzp-kpd-iqcrpop and prescription medicines only as told by [...] provider. Document Revised: 09/05/2022 Document Reviewed: 09/05/2022 [employer] Patient Education ? 2022 [employer] Sinclair's Esophagus (more content not included)... Normal [facility] Comment on above: Result Comment: Elec tronically [...] history and physical Documented on chart. Thyroidectomy (35254998) on 02/13/2018 at 47 Years. Entire wisdom tooth ([id number]). Diverticulitis surgery (937742861). tongue and throat biopsy.. Past Medical History No active or resolved past medical history items have been selected or recorded.. Family History Hypertension Father . Procedure History Thyroidectomy (45061528) on 02/13/2018 at 47 Years. Entire wisdom tooth (633643832). Diverticulitis surgery (367405971). tongue and throat biopsy.. Colorectal neoplasm risk [...] Daily, # 90 EA, Refills(s) 1, [id number], cm, 08/29/23 7:21:00 EDT, Height/Length Dosing, 94.2, kg, 08/29/23 7:21:00 EDT, Weight Dosing metoprolol 25 mg ER Tab: 25 mg = 1 tab(s), Oral, Daily, # 90 tab(s), Refills(s) 1, [id number], cm, 08/29/23 7:21:00 EDT, Height/Length [...] terminal ileum Images Procedure images: Rec1_hd_video_T09_ 29_13_910.jpg Rec1_hd_video_T09_ 28_56_342.jpg Rec1_hd_video_T_ 26_04_242.jpg Rec1_hd_video_T_ 24_43_972.jpg Rec1_hd_video_T_ 24_16_317.jpg Rec1_hd_video_T09_ 24_01_066.jpg Rec1_hd_video_T09_ 19_21_810.jpg Rec1_hd_video_T09_ 19_18_072.jpg Rec1_hd_video_T09_ 17_56_036.jpg Rec1_hd_video_T09_ 16_52_673.jpg Rec1_hd_video_T09_ 16_47_723.jpg Rec1_hd_video_T09_ 14_18_188.jpg Rec1_hd_video__ _53_944.jpg Rec1_hd_video_09_ _36_204.jpg Rec1_hd_video__ _29_223.jpg Rec1_hd_video_09_ _21_998.jpg Rec1_hd_video_09_ _57_345.jpg Rec1_hd_video_09_ _45_043.jpg Rec1_hd_video__ _21_315.jpg Rec1_hd_video__ _07_279.jpg . Post-Procedure Complications: non (more content not included)... Normal [facility] Comment on above: Result Comment: Elec tronically Signed By: Chirag PRABHAKAR, Sarah Barajas\.br\Date and Time Signed: 11/01/23 10:25 EDT Other Comment: Sallie temple Attachment - attachment storage system not supported [id number] Can be viewed in [facility] Attachment - attachment storage system not supported [id number] Can be viewed in source systemCar[facility] Attachment - attachment storage system not supported [id number] Can be viewed in source [facility] Attachment - attachment storage system not supported [id number] Can be viewed in source systemW[facility]old[facility] Attachment - attachment storage system not supported [id number] Can be viewed in source systemMisshold[facility] Attachment - attachment storage system not supported [id number] Can be viewed in [facility] Attachment - attachment storage system not supported 3605675 Can be viewed in [facility] Attachment - attachment storage system not supported 6030149 Can be viewed in source systemMissholden hospital Attachment - attachment storage system not supported 4269055 Can be viewed in [facility] Attachment - attachment storage system not supported 4664772 Can be viewed in source systemMissing Attachment - attachment storage system not supported 8106060 Can be viewed in source systemMissing Attachment - attachment storage system not supported 7165312 Can be viewed in source systemMissing Attachment - attachment storage system not supported 4176129 Can be viewed in source systemMissing Attachment - attachment storage system not supported 3153662 Can be viewed in source systemMissing Attachment - attachment storage system not supported 6133165 Can be viewed in source systemMissing Attachment - attachment storage system not supported 8600938 Can be viewed in source systemMissing Attachment - attachment storage system not supported 4661049 Can be viewed in source systemMissing Attachment - attachment storage system not supported 6397110 Can be viewed in source systemMissing Attachment - attachment storage system not supported 0754251 Can be viewed in source systemMissing Attachment - attachment storage system not supported 0298154 Can be viewed in source system Endoscopic [...] 4. Normal examined duodenum Images Procedure images: Rec1_hd_video_T09_ 01_01_559.jpg Rec1_hd_video_T08_ 58_32_819.jpg Rec1_hd_video_2023__T08_ 56_42_191.jpg Rec1_hd_video_2023__T08_ 56_22_059.jpg Rec1_hd_video_2023__T08_ 54_53_977.jpg Rec1_hd_video_2023_T08_ 54_47_322.jpg Rec1_hd_video_T08_ 54_41_717.jpg Rec1_hd_video_2023__T08_ 54_24_874.jpg . Post-Procedure Complications: none. [...] GI clinic in 1-2 after discharge Normal [facility] Comment on above: Result Comment: Elec tronically Signed By: Chirag PRABHAKAR, Sarah Barajas\.br\Date and Time Signed: 11/01/23 09:57 EDT Other Comment: Sallie temple Attachment - attachment storage system not supported [id number] Can be viewed in source systemMissing Attachment - attachment storage system not supported [id number] Can be viewed in source systemMissing Attachment - attachment storage system not supported 0769323 Can be viewed in source systemMissing Attachment - attachment storage system not supported 2647808 Can be viewed in source systemMissing Attachment - attachment storage system not supported 8117922 Can be viewed in source systemMissing Attachment - attachment storage system not supported 4147447 Can be viewed in source systemMissing Attachment - attachment storage system not supported 5282609 Can be viewed in source systemMissing Attachment - attachment storage system not supported 1441577 Can be viewed in source system Inpatient Patient Summaryon 11-01-2023 Inpatient Patient Summary [address] [address] [facility] Clinical Discharge Instructions PERSON INFORMATION Name: ADARSH SCHAFER PHYSICIANS Admitting Physician: Sarah Beard MD Attending Physician: Sarah Beard MD PCP: Junior Sinclair MD Discharge Diagnosis: Chronic GERD; Colon cancer screening Comment: PATIENT EDUCATION INFORMATION Instructions: Upper Endoscopy, Adult, Care After; Sinclair's Esophagus; Gastritis, Adult; Hiatal Hernia; Colonoscopy, Care After Surgery Salam (CUSTOM); Colon Polyps Medication Leaflets: Follow up: With: Address: When: Sarah Beard [address] [place] [address], [address], [place] [id number] [phone] Business (1) Comments: office will call for follow up Type Location Start [facility] 11/15/2023 2:00 PM 11/15/2023 2:20 PM Confirmed MEDICATION LIST Medications to Continue with No Changes Other Medications levothyroxine (levothyroxine 175 mcg (0.175 mg) Tab) 1 Tablets By Mouth every day. Refills: 1. metoprolol (metoprolol 25 mg ER Tab) 1 Tablets By Mouth every day. Refills: 1. Comment: Normal [facility] Main OR Intraoperative Recor don 11-01-2023 Main OR Intraoperative Record IntraOp Document Type FT Summary Primary Physician: Chirag PRABHAKAR, Sarah Barajas Finalized Date/Time: 11/01/23 14:12:04 Pt. Name: ADARSH SCHAFER /Sex: 1970 Male Med Rec #: [id number] Physician: Chirag PRABHAKAR, Sarah Barajas Financial #: [id number] Pt. Type: O Room/Bed: / Admit/Disch: 11/01/23 [...] Brunner RN, Jayme Mark Role Performed Anesthesiologist Meat Soaker - Primary Staff - Other Full Stack Python Developer Time In 11/01/23 09:38:00 11/01/23 09:38:00 11/01/23 [...] Isai Brunner RN, Sparks, Micala E, Patricia LODE MINER BLASTING, Chirag Gaston MD, Sarah Barajas Time Out [...] Pre-Care Text (more content not included)... Normal [facility] Main OR PACU I Recordon 10-09 Main OR PACU I Record PACU Phase I Document Type FT Summary Primary Physician: Sarah Beard MD Finalized Date/Time: 11/01/23 11:32:26 Pt. Name: ADARSH SCHAFER D.O.B./Sex: 1970 Male Med Rec #: [id number] Physician: Sarah Beard MD Financial #: [id number] Pt. Type: O Room/Bed: / Admit/Disch: 11/01/23 [...] By: Tanya Smiley RN 11/01/23 11:32 Normal [facility] Main OR Preoperative Recordo n 11-01-2023 Main OR Preoperative Record Holding Area Document Type FT Summary Primary Physician: Sarah Beard MD Finalized Date/Time: 11/01/23 08:39:08 Pt. Name: ADARSH SCHAFER/Sex: 1970 Male Med Rec #: [id number] Physician: Sarah Beard MD Financial #: [id number] Pt. Type: O Room/Bed: / Admit/Disch: 11/01/23 [...] By: Jayla Simons RN 11/01/23 08:39 Normal [facility] Monitor Recordon 11-01-2023 Monitor Record [id number]#1.00TIFF Normal [facility] Monitor Record [id number]#1.00TIFF Normal [facility] Outpatient Surgery Discharge Instructionon 11-01-2023 Outpatient Surgery Discharge Instruction [address] [address] Patient Discharge Instructions PERSON INFORMATION [...] THE NEAREST EMERGENCY ROOM OR CALL 911 IGILMAR JASON D, have received the attached patient education materials/instructions and have verbalized understanding: May we do a follow up call? Yes No I was present when discharge instructions were given __ Patient Signature Date Clinican/Nurse Signature Date Follow up: With: Address: When: Sarah Beard [address] [place], [place] [address]dict [place], [address], [address] [address] [phone] Business (1) Comments: office will call for follow up Type Location [facility] 11/15/2023 2:00 PM 11/15/2023 2:20 [...] to serve you. Thank you for choosing [facility] HERE ARE THE MEDICATION CHANGES THAT OCCURRED [...] activities are safe for you. ? Take gifs-kze-sdasuvk and prescription medicines only as told by [...] provider. Document Revised: 09/05/2022 Document Reviewed: 09/05/2022 [employer] Patient Education ? 2022 [employer] Sinclair's Esophagus Sinclair's esophagus occurs when the (more content not included)... Normal [facility] Patient Education - Texton 0 11-01-2023 Patient [...] activities are safe for you. ? Take smwo-swm-gdlwtht and prescription medicines only as told by [...] provider. Document Revised: 09/05/2022 Document Reviewed: 09/05/2022 [employer] Patient Education ? 2022 [employer] Sinclair's Esophagus Sinclair's esophagus occurs when [...] symptoms such (more content not included)... Normal [facility] Progress Note-Physicianon Progress Note-Physician Patient: ADARSH SCHAFER [...] Daily, # 90 EA, Refills(s) 1, [id number], cm, 08/29/23 7:21:00 EDT, Height/Length Dosing, 94.2, kg, 08/29/23 7:21:00 EDT, Weight Dosing metoprolol 25 mg ER Tab: 25 mg = 1 tab(s), Oral, Daily, # 90 tab(s), Refills(s) 1, Pharmacy: [facility]/pharm[facility] #6177, 158, cm, 08/29/23 7:21:00 EDT, Height/Length Dosing, 94.2, kg, 08/29/23 7:21:00 EDT, Weight Dosing, Home Medications (2) Active levothyroxine 175 mcg (0.175 mg) Tab 175 mcg = 1 tab(s), Oral, Daily metoprolol 25 mg ER Tab 25 mg = 1 tab(s), Oral, Daily Problem list: All Problems Ankylosis / SNOMED CT 361916519 / Confirmed Anxiety / SNOMED CT 47205723 / Confirmed Cervical radiculopathy, chronic / SNOMED CT 393464050 / Confirmed Diverticulitis / SNOMED CT 155081967 / Confirmed Primary hypertension / SNOMED CT 28676208 / Confirmed Psoriasis / SNOMED CT 75197014 / Confirmed Seasonal allergies / SNOMED CT 2165586452 / Confirmed Sinusitis / SNOMED CT 17714786 / Confirmed Steatosis, liver / SNOMED CT 013675600 / Confirmed Thyroid disease / SNOMED CT 11707686 / Confirmed Overactive Thyroid and benign tumor Thyroid mass / SNOMED CT 2453149818 / Confirmed Tinnitus of left ear / SNOMED CT 305222720 / Confirmed TMJ (temporomandibular joint syndrome) / SNOMED CT 02333545 / Confirmed Canceled: Hyperthyroidism / SNOMED CT 65877709 Canceled: Nonalcoholic steatohepatitis (CAGLE) / SNOMED CT 0215895547 Canceled: Otitis media of both ears / SNOMED CT 531499678 Canceled: Tinea cruris / SNOMED CT 2975022018 Physical Examination Vital Signs 11/01/2023 11:05 EDT [...] mmHg mmHg (more content not included)... Normal [facility] Comment on above: Result Comment: Elec tronically [...] Daily, # 90 EA, Refills(s) 1, Pharmacy: [facility]/pharm[facility]6177, 158, cm, 08/29/23 7:21:00 EDT, Height/Length Dosing, 94.2, kg, 08/29/23 7:21:00 EDT, Weight Dosing metoprolol 25 mg ER Tab: 25 mg = 1 tab(s), Oral, Daily, # 90 tab(s), Refills(s) 1, Pharmacy: [facility]/pharmacy #6177, 158, cm, 08/29/23 7:21:00 EDT, Height/Length [...] list: All Problems Ankylosis / SNOMED CT 126984683 / Confirmed Anxiety / SNOMED CT 12247125 / Confirmed Cervical radiculopathy, chronic / SNOMED CT 949219929 / Confirmed Diverticulitis / SNOMED CT 804014095 / Confirmed Primary hypertension / SNOMED CT 05882126 / Confirmed Psoriasis / SNOMED CT 89542159 / Confirmed Seasonal allergies / SNOMED CT 3995374448 / Confirmed Sinusitis / SNOMED CT 49619300 / Confirmed Steatosis, liver / SNOMED CT 308657197 / Confirmed Thyroid disease / SNOMED CT 99816255 / Confirmed Overactive Thyroid and benign tumor Thyroid mass / SNOMED CT 0091678000 / Confirmed Tinnitus of left ear / SNOMED CT 670339937 / Confirmed TMJ (temporomandibular joint syndrome) / SNOMED CT 67125979 / Confirmed Canceled: Hyperthyroidism / SNOMED CT 49757149 Canceled: Nonalcoholic steatohepatitis (CAGLE) / SNOMED CT 4389596425 Canceled: Otitis media of both ears / SNOMED CT 019183260 Canceled: Tinea cruris / SNOMED CT 9195041385, Active Problems (13) Ankylosis Anxiety Cervical radiculopathy, chronic Diverticulitis Primary hypertension Psoriasis Seasonal allergies Sinusitis Steatosis, liver Thyroid disease Thyroid mass Tinnitus of left ear TMJ (temporomandibular joint syndrome) Histories Past Medical History: No active or resolved past medical history items have been selected or recorded. Family History: Hypertension Father Procedure history: Thyroidectomy (61521562) on 02/13/2018 at 47 Years. Entire wisdom tooth (080974874). Diverticulitis surgery (168176929). tongue and throat biopsy. Social History Social [...] Management Results revie (more content not included)... [facility] Comment on above: Result Comment: Elec tronically Signed By: Samuel Ochoa DO.br\Date and Time Signed: 11/01/23 09:22 EDT Consultation Noteon 10-24-19 Consultation Note [id number]#1.00TIFF Normal [facility] RAD - MISCon 10-07-2023 RAD - MISC [id number]#1.00TIFF [facility] Consultation Noteon 10-01-19 Consultation Note [id number]#1.00TIFF [facility] Patient Letter FTon 2023 Patient Letter [facility] Junior Sinclair, [address] [place] [id number] Re: ADARSH SCHAFER Date of : 1970 To Whom It May Concern: Dr Sinclair sent over a referral for Adarsh Schafer (: 68) and this is to verify the referral is to rule out rheumatoid arthritis. [facility] [address] [address] [facility] Ambulatory Visit Summaryon 0 08-29-2023 Ambulatory Visit [...] PM EDT With: Junior Sinclair MD Where: [facility] [place] Invalid Interpretation Code Primary hypertension [facility] Consenton 08-29-2023 Consent [id number]#1.00TIFF Normal [facility] Patient Educationon 08-29-19 24 Patient Education Cardiovascular [...] oz glass (more content not included)... Normal [facility] Physician Referralon 024 Physician Referral [id number]#1.00TIFF Normal [facility] Physician Referral [id number]#1.00TIFF [facility] Ambulatory Visit Summaryon 0 07-10-2023 Ambulatory Visit [...] Appointments Saturday 2:30 PM EDT With: Where: [facility] Saturday 3:00 PM EDT With: Yahir PRABHAKAR, Junior Salcedo Where: [facility] [place] Normal [facility] Medicine Office/Clini c Noteon 07-10-2023 Family [...] day(s), # 14 tab(s), Refills(s) 0, Pharmacy: [facility] #6177, 158, cm, 07/10/23 16:20:00 EST, Height/Length Dosing, 94.6, kg, 07/10/23 16:20:00 EST, Weight Dosing methylPREDNISolone, = 1 packet(s), Oral, As Directed, as directed on package labeling, X 6 day(s), # 21 tab(s), Refills(s) 0, [facility] 158, cm, 07/10/23 16:20:00 EST, Height/Length Dosing, 94.6, kg, 07/10/23 16:20:00 EST, Weight Dosing 2. Otitis media of both ears (H66.93: Otitis media, unspecified, bilateral) MARIBETH TM red as well as canals left TM bulging with clear fluid Ordered: amoxicillin-clavulanate, = 1 tab(s), Oral, q12hr, X 7 day(s), # 14 tab(s), Refills(s) 0, [id number], 158, cm, 07/10/23 16:20:00 EST, Height/Length Dosing, 94.6, kg, 07/10/23 16:20:00 EST, Weight Dosing methylPREDNISolone, = 1 packet(s), Oral, As Directed, as directed on package labeling, X 6 day(s), # 21 tab(s), Refills(s) 0, [facility], 158, cm, 07/10/23 16:20:00 EST, Height/Length Dosing, 94.6, kg, 07/10/23 16:20:00 EST, Weight Dosing 3. BMI 37.0-37.9, adult (Z68.37: Body mass index [BMI] 37.0-37.9, adult) BMI education complete Ordered: amoxicillin-clavulanate, = 1 tab(s), Oral, q12hr, X 7 day(s), # 14 tab(s), Refills(s) 0, [facility], 158, cm, 07/10/23 16:20:00 EST, Height/Length Dosing, 94.6, kg, 07/10/23 16:20:00 EST, Weight Dosing methylPREDNISolone, = 1 packet(s), Oral, As Directed, as directed on package labeling, X 6 day(s), # 21 tab(s), Refills(s) 0, [id number], 158, cm, 07/10/23 16:20:00 EST, Height/Length [...] Recorded diphtheria/pertussis, acel/tetanus adult 01/10/2019 Recorded Normal [facility] Comment on above: Result Comment: Elec tronically Signed By: Génesis Ruano\.niles\Date and Time Signed: 07/10/23 16:44 EST Consent for Procedure/Surger yon 07-08-2023 Consent for Procedure/Surgery [id number]#1.00TIFF Normal [facility] Ambulatory Visit Summaryon 0 07-04-2023 Ambulatory Visit [...] PM EDT With: Junior Sinclair MD Where: [facility] [place] Normal [facility] Gastroenterology Office/Clin ic Noteon 07-04-2023 Gastroenterology Office/Clinic Note Chief Complaint ref by meme CAGLE and RUQ pain HPI Staff Patient is a 52 year old male who was referred by Yahir for CAGLE. Denies recent imaging or previous EGD/Colonoscopy. Denies fhx of colon ca C/o RUQ abdominal pain, comes and goes, very mild. US RUQ 06/29/22 @ [place]: IMPRESSION: 1. Increased echogenicity of liver consistent [...] gm/dL (05/07/23) TSH 1.89 Liver workup at [facility] 02/18/23 - all negative. History of Present Illness used to drink 4-6 beers a day, slowed down 1 year ago 10 beers a week Had fibroscan 02/2023 at [facility]: CAP 263, E 7.8 kPa [...] OP Consult New/Estab Pt Moderate 40 Min 60459 3. Chronic GERD (K21.9: Gastro-esophageal reflux disease without esophagitis) Minimal, as controlled with symptoms, given the use of alcohol in the past I would rather to do EGD to screen for Sinclair's esophagus Ordered: Colonoscopy (Hospital Procedure) EGD Endoscopy (Hospital Procedure) OP Consult New/Estab Pt Moderate 40 Min 78140 4. Screening for colon cancer Average risk, [...] diphtheria/pertussis, acel/tetanus adult 01/10/2019 Recorded Normal [facility] Comment on above: Result Comment: Elec tronically Signed By: Chirag PRABHAKAR, Sarah Barajas\.br\Date and Time Signed: 07/04/23 15:25 EST Ambulatory Visit Summaryon 1 07-07-2022 Ambulatory Visit Summary ADARSH SCHAFER :1970 Visit Date:05/07/2023 Ambulatory Visit Instructions Your [...] EDT With: Yahir PRABHAKAR, Junior Salcedo Where: [facility] Stefanie Normal [facility] CMPon 05-07-2023 Albumin [Mass/Vol] 4.2 g/dL Normal 3.3-5.0 [facility] Comment on above: Performed By: #### 2 [id number], [id number], [id number] ####[id number] [place] [address] Albumin/Globulin (S) [Mass conc ratio] 1.3 Normal 1.1-2.2 [facility] Comment on above: Performed By: #### 2 294240, [id number], [id number] ####[facility] [address] [place] [address] ALP [Catalytic activity/Vol] 63 Int._Unit/L Normal 21-98 [facility] Comment on above: Performed By: #### 2 806691, [id number], [id number] ####[facility] [address] [place] [address] ALT No additional P-5'-P [Catalytic activity/Vol] 44 Int._Unit/L Normal 6-46 [facility] Comment on above: Performed By: #### 2 191588, [id number], [id number] ####[facility] [address] [place] [address] Anion gap [Moles/Vol] 12 mmol/L Normal 6-16 [facility] Comment on above: Performed By: #### 2 358872, [id number], [id number] ####[facility] [address] [place] [address] AST [Catalytic activity/Vol] 38 Int._Unit/L Normal 5-43 [facility] Comment on above: Performed By: #### 2 979253, [id number], [id number] ####[facility] [address] [place] [address] Bilirubin [Mass/Vol] 0.6 mg/dL Normal 0.0-1.1 [facility] Comment on above: Performed By: #### 2 698933, [id number], [id number] ####[facility] [address] [place] [address] Calcium [Mass/Vol] 9.6 mg/dL Normal 8.9-11.1 [facility] Comment on above: Performed By: #### 2 358819, [id number], [id number] ####[facility] [address] [place] [address] Chloride [Moles/Vol] 101 mmol/L Normal 101-111 [facility] Comment on above: Performed By: #### 2 409851, [id number], [id number] ####[facility] [address] [place] [address] CO2 [Moles/Vol] 28 mmol/L Normal 21-31 [facility] Comment on above: Performed By: #### 2 378242, 02093058, [id number] ####[facility] [address] [place] [address] Creatinine [Mass/Vol] 1.0 mg/dL Normal 0.5-1.3 [facility] Comment on above: Performed By: #### 2 099301, 07006389, [id number] ####[facility] [address] [place] [address] Globulin (S) [Mass/Vol] 3.2 g/dL Normal 1.4-4.0 [facility] Comment on above: Performed By: #### 2 829534, [id number], [id number] ####[facility] [address] [place] [address] Glucose [Mass/Vol] 98 mg/dL Normal 55-199 [facility] Comment on above: Result Comment: If t his glucose result represents a fasting glucose, interpretation should refer to the following reference range: 55-99 mg/dL Performed By: #### 2 962529, [id number], [id number] ####[facility] [address] [place] [address] Potassium [Moles/Vol] 4.3 mmol/L Normal 3.5-5.3 [facility] Comment on above: Performed By: #### 2 761374, 81400508, [id number] ####[facility] [address] [place] [address] Protein [Mass/Vol] 7.4 g/dL Normal 6.0-7.8 [facility] Comment on above: Performed By: #### 2 556820, 23459488, 94349242 ####[facility] [address] [place] [address] Sodium [Moles/Vol] 137 mmol/L Normal 135-145 [facility] Comment on above: Performed By: #### 2 188176, 98112421, 14133909 ####[facility] [address] [place] [address] Urea nitrogen [Mass/Vol] 10 mg/dL Normal 5-21 [facility] Comment on above: Performed By: #### 2 898821, 48153203, [id number] ####[facility] [address] [place] [address] Urea nitrogen/Creatinin e [Mass ratio] 10 No Units Normal 10-20 [facility] Comment on above: Performed By: #### 2 126174, 37572536, [id number] ####[facility] [address] [place] [address] Nurse Consultation Noteon Nurse Consultation Note Reason [...] Recorded diphtheria/pertussis, acel/tetanus adult 01/10/2019 Recorded Normal [facility] TSH With T4fr Reflexon 05-07 TSH Qn 1.89 m[IU]/L Normal 0.34-5.60 [facility] Comment on above: Performed By: #### 2 745563, 10846637, [id number] ####[facility] [address] [place] [address] eGFRon 05-07-2023 GFR/1.73 sq M.predicted among non-blacks MDRD (S/P/Bld) [Vol rate/Area] 90 mL/min/1.73 m2 Normal >=59 [facility] Comment on above: Order Comment: Order added by Discern Expert. Result Comment: Hand Decorator kirit kidney disease could be indicated at eGFR's of less than 60 mL/min/1.73m2. Kidney failure is indicated at less than 15 mL/min/1.73m2. Performed By: #### 2 475881, [id number], [id number] ####[facility] [address] [place] [address] Ambulatory Visit Summaryon 1 06-29-2022 Ambulatory Visit Summary ADARSH SCHAFER :1970 Visit Date:04/29/2023 Ambulatory Visit Instructions Your [...] EDT With: Yahir PRABHAKAR, Junior Salcedo Where: [facility] Family Medicine Office/Clini c Noteon 04-29-2023 Family Medicine Office/Clinic Note HPI Staff Adarsh is a 52 year old male presenting to discuss lab results re: his CAGLE Labs done Feb 2023 at [facility] unknown dr ordered them Sees Dr Tavera [...] diphtheria/pertussis, acel/tetanus adult 01/10/2019 Recorded Normal [facility] Comment on above: Result Comment: Elec tronically [...] numbers. This can be done either in [place] ([place] or metric measurements. Note that charts and online BMI calculators are available to help you find your BMI quickly and easily without having to do these calculations yourself. To calculate your BMI in [place] ([place] measurements: 1. Measure your weight in [...] for Disease Control and Prevention: www.cdc.gov ? [place] Heart Association: www.heart.org ? National Heart, Lung, and Blood [place]: www.nhlbi.nih.gov Summary ? Body mass index (BMI) is a number that is calculated from a person's weight and height. ? BMI may help estimate how much of a person's weight is composed of fat. BMI can help identify those who may be at higher risk for certain medical problems. ? BMI can be measured using [place] measurements or metric measurements. ? BMI charts are used to identify whether you are underweight, normal weight, overweight, or obese. This information is not intended to replace advice given to you by your health care provider. Make sure you discuss any questions you have with your health care provider. Document Revised: 02/17/2020 Document Reviewed: 12/25/2019 [employer] Patient Education ? 2022 [employer] [facility] Lab Reportson 03-27-2023 Lab Reports [id number]#[id number] [facility] Lab Reportson 03-20-2023 Lab Reports [id number]#1.00TIFF [facility] Consenton 03-15-2023 Consent [id number]#1.00TIFF [facility] Nurse Consultation Noteon Nurse Consultation Note Reason [...] Recorded diphtheria/pertussis, acel/tetanus adult 01/10/2019 Recorded Normal [facility] Formson 01-23-2023 Forms [id number]#[id number]:127 Normal [facility] RAD - MISCon 01-14-2023 RAD - MISC [id number]#1.00CD:127 Normal [facility] US SINGLE QUAD RT UPPERon US SINGLE [...] HARSHIL AVILES Date: 2022-06-29 07:54 Normal [facility] HEPATITIS PANEL, ACUTEon HBsAg Screen Negative Normal Negative [facility] Comment on above: Performed By: #### H EPACUT #### [facility] [address] [address] [address] Raul Zaidi HCV AB <0.1 Normal 0.0-0.9 [facility] Comment on above: Performed By: #### H EPACUT #### [facility] [address] [address] [address] Raul Zaidi Hep A Ab, IgM Negative Normal Negative [facility] Comment on above: Performed By: #### H EPACUT #### [facility] [address] [address] [address] Raul Zaidi Hep B Core Ab, IgM Negative Normal Negative [facility] Comment on above: Performed By: #### H EPACUT #### [facility] [address] [address] [address] Raul Zaidi Interpretation: Comment Normal [facility] Comment on above: Result Comment: Nega tive Not infected with HCV, unless recent infection is suspected or other evidence exists to indicate HCV infection. Performed By: #### H EPACUT #### [facility] [address] [place] [address] Dr. Raul Zaidi CBC AUTO DIFFon 06-05-2022 BASO # 0.0 103/ul Normal 0.0-0.1 [facility] Comment on above: Performed By: #### C BC #### [facility] [address] [address] [address] Raul Zaidi Basophils/100 WBC (Bld) 0.5 % Normal 0.2-2.0 [facility] Comment on above: Performed By: #### C BC #### [facility] [address] [place] [address] Dr. Raul Zaidi EO # 0.1 103/ul Normal 0.0-0.7 [facility] Comment on above: Performed By: #### C BC #### [facility] [address] [place] [address] Dr. Raul Zaidi Eosinophils/100 WBC (Bld) 1.2 % Normal 0.9-7.0 [facility] Comment on above: Performed By: #### C BC #### [facility] [address] [place] [address] Dr. Raul Zaidi Erythrocyte distribution width (RBC) [Ratio] 13.0 % Normal 11.0-15.0 [facility] Comment on above: Performed By: #### C BC #### [facility] [address] [place] [address] Dr. Raul Zaidi Hematocrit (Bld) [Volume fraction] 41.9 % Critically low 42.0-54.0 [facility] Comment on above: Performed By: #### C BC #### [facility] [address] [place] [address] Dr. Raul Zaidi Hemoglobin (Bld) [Mass/Vol] 14.3 g/dL Normal 14.0-18.0 [facility] Comment on above: Performed By: #### C BC #### [facility] [address] [place] [address] Dr. Raul Zaidi IG # 0.06 10e3/ul Critically high 0.00-0.03 [facility] Comment on above: Performed By: #### C BC #### [facility] [address] [place] [address] Dr. Raul Zaidi IG % 0.8 % Critically high 0.0-0.5 [facility] Comment on above: Performed By: #### C BC #### [facility] [address] [place] [address] Dr. Raul Zaidi LYMPH # 1.6 103/ul Normal 1.2-3.8 [facility] Comment on above: Performed By: #### C BC #### [facility] [address] [place] [address] Dr. Raul Zaidi Lymphocytes/100 WBC (Bld) 20.9 % Normal 20.5-60.0 [facility] Comment on above: Performed By: #### C BC #### [facility] [address] [place] [address] Dr. Raul Zaidi MANUAL DIFF REQ NO Normal [facility] Comment on above: Performed By: #### C BC #### [facility] [address] [place] [address] Dr. Raul Zaidi MCH (RBC) [Entitic mass] 31.5 pg Normal 25.9-34.0 [facility] Comment on above: Performed By: #### C BC #### [facility] [address] [place] [address] Dr. Raul Zaidi MCHC (RBC) [Mass/Vol] 34.1 g/dL Normal 29.9-35.2 [facility] Comment on above: Performed By: #### C BC #### [facility] [address] [place] [address] Dr. Raul Zaidi MCV (RBC) [Entitic vol] 92.3 fL Normal 80.0-94.0 [facility] Comment on above: Performed By: #### C BC #### [facility] [address] [place] [address] Dr. Raul Zaidi MONO # 0.7 103/ul Normal 0.3-0.8 [facility] Comment on above: Performed By: #### C BC #### [facility] [address] [place] [address] Dr. Raul Zaidi Monocytes/100 WBC (Bld) 9.3 % Normal 1.7-12.0 [facility] Comment on above: Performed By: #### C BC #### [facility] [address] [address] [address] Raul Zaidi NEUT # 5.2 103/ul Normal 1.4-6.5 [facility] Comment on above: Performed By: #### C BC #### [facility] [address] [address] [address] Raul Zaidi Neutrophils/100 WBC (Bld) 67.3 % Normal 43.0-75.0 [facility] Comment on above: Performed By: #### C BC #### [facility] [address] [place] [address] Dr. Raul Zaidi Platelet mean volume (Bld) [Entitic vol] 8.4 fL Critically low 9.5-13.5 [facility] Comment on above: Performed By: #### C BC #### [facility] [address] [place] [address] Dr. Raul Zaidi PLT 243 103/ul Normal 150-450 [facility] Comment on above: Performed By: #### C BC #### [facility] [address] [place] [address] Dr. Raul Zaidi RBC 4.54 106/ul Critically low 4.70-6.10 [facility] Comment on above: Performed By: #### C BC #### [facility] [address] [place] [address] Dr. Raul Zaidi WBC 7.7 103/ul Normal 4.0-11.0 [facility] Comment on above: Performed By: #### C BC #### [facility] [address] [place] [address] Dr. Raul Zaidi LIPID PROFILEon 06-05-2022 CHOL-HDL RATIO NORM SEE BELOW Normal [facility] Comment on above: Result Comment: 3.3 - 4.4 LOW RISK 4.4 - 7.1 AVERAGE RISK 7.1 - 11.0 MODERATE RISK >11.0 HIGH RISK Performed By: #### L IPID, CMP #### [facility] [address] [place] [address] Dr. Raul Zaidi Cholesterol [Mass/Vol] 225 mg/dL Critically high <=200 [facility] Comment on above: Performed By: #### L IPID, CMP #### [facility] [address] [address] [address] Raul Zaidi Cholesterol in HDL [Mass/Vol] 97 mg/dL Critically high 40-60 [facility] Comment on above: Performed By: #### L IPID, CMP #### [facility] [address] [address] [address] Rual Zaidi Cholesterol in LDL [Mass/Vol] 113.2 mg/dL Normal [facility] Comment on above: Performed By: #### L IPID, CMP #### [facility] [address] [address] [address] Raul Zaidi Cholesterol.total/ Cholesterol in HDL [Mass ratio] 2.3 {ratio} Normal [facility] Comment on above: Performed By: #### L IPID, CMP #### [facility] [address] [place] [address] Dr. Raul Zaidi HDL NORMAL > or = 60 mg/dl - LO W CARDIOVASCULAR RISK <40 mg/dl - HIGH CARDIOVASCULAR RISK Normal [facility] Comment on above: Performed By: #### L IPID, CMP #### [facility] [address] [address] [address] Raul Zaidi LDL CALC NORMAL SEE BELOW Normal [facility] Comment on above: Result Comment: <100 mg/dl OPTIMAL 100 - 129 mg/dl NEAR OR ABOVE OPTIMAL 130 - 159 mg/dl BORDERLINE HIGH 160 - 189 mg/dl HIGH >190 mg/dl VERY HIGH Performed By: #### L IPID, CMP #### [facility] [address] [address] [address] Raul Zaidi Triglyceride [Mass/Vol] 74 mg/dL Normal <=150 [facility] Comment on above: Performed By: #### L IPID, CMP #### [facility] [address] [address] [address] Raul Zaidi VLDL CALC 14.8 mg/dL Normal [facility] Comment on above: Performed By: #### L IPID, CMP #### [facility] [address] [address] [address] Raul Zaidi PROF 14(COMP METB)on 022 Albumin [Mass/Vol] 4.0 g/dL Normal 3.4-5.0 [facility] Comment on above: Performed By: #### L IPID, CMP #### [facility] [address] [address] [address] Raul Zaidi Albumin/Globulin [Mass ratio] 0.9 {ratio} Normal [facility] Comment on above: Performed By: #### L IPID, CMP #### [facility] [address] [address] [address] Raul Zaidi ALP [Catalytic activity/Vol] 57 U/L Normal 46-116 [facility] Comment on above: Performed By: #### L IPID, CMP #### [facility] [address] [place] [address] Dr. Raul Zaidi ALT [Catalytic activity/Vol] 82 U/L Critically high 16-63 [facility] Comment on above: Performed By: #### L IPID, CMP #### [facility] [address] [address] [address] Raul Zaidi Anion gap [Moles/Vol] 14.9 mmol/L Normal [facility] Comment on above: Performed By: #### L IPID, CMP #### [facility] [address] [address] [address] Raul Zaidi AST [Catalytic activity/Vol] 76 U/L Critically high 15-37 [facility] Comment on above: Performed By: #### L IPID, CMP #### [facility] [address] [address] [address] Raul Zaidi Bilirubin [Mass/Vol] 0.9 mg/dL Normal 0.2-1.0 [facility] Comment on above: Performed By: #### L IPID, CMP #### [facility] [address] [address] [address] Raul Zaidi Calcium [Mass/Vol] 9.3 mg/dL Normal 8.5-10.1 [facility] Comment on above: Performed By: #### L IPID, CMP #### [facility] [address] [address] [address] Raul Zaidi Chloride [Moles/Vol] 99 mmol/L Normal 98-107 [facility] Comment on above: Performed By: #### L IPID, CMP #### [facility] [address] [place] [address] Dr. Raul Zaidi CO2 [Moles/Vol] 28.4 mmol/L Normal 21.0-32.0 [facility] Comment on above: Performed By: #### L IPID, CMP #### [facility] [address] [address] [address] Raul Zaidi Creatinine [Mass/Vol] 0.72 mg/dL Normal 0.70-1.30 [facility] Comment on above: Performed By: #### L IPID, CMP #### [facility] [address] [place] [address] Dr. Raul Zaidi EGFR-AF [place] >60 Normal >=60 [facility] Comment on above: Performed By: #### L IPID, CMP #### [facility] [address] [place] [address] Dr. Raul Zaidi EGFR-NON AF [place] >60 Normal >=60 [facility] Comment on above: Performed By: #### L IPID, CMP #### [facility] [address] [place] [address] Dr. Raul Zaidi Globulin (S) [Mass/Vol] 4.3 g/dL Normal [facility] Comment on above: Performed By: #### L IPID, CMP #### [facility] [address] [place] [address] Dr. Raul Zaidi Glucose [Mass/Vol] 83 mg/dL Normal 74-106 [facility] Comment on above: Performed By: #### L IPID, CMP #### [facility] [address] [address] [address] Raul Zaidi Potassium [Moles/Vol] 4.3 mmol/L Normal 3.5-5.1 [facility] Comment on above: Performed By: #### L IPID, CMP #### [facility] [address] [address] [address] Raul Zaidi Protein [Mass/Vol] 8.3 g/dL Critically high 6.4-8.2 [facility] Comment on above: Performed By: #### L IPID, CMP #### [facility] [address] [address] [address] Raul Zaidi Sodium [Moles/Vol] 138 mmol/L Normal 136-145 [facility] Comment on above: Performed By: #### L IPID, CMP #### [facility] [address] [address] [address] Raul Zaidi Urea nitrogen [Mass/Vol] 5.0 mg/dL Critically low 7.0-18.0 [facility] Comment on above: Performed By: #### L IPID, CMP #### [facility] [address] [address] [address] Raul Zaidi Urea nitrogen/Creatinin e [Mass ratio] 6.9 mg/mg Normal [facility] Comment on above: Performed By: #### L IPID, CMP #### [facility] [address] [address] [address] Raul Zaidi Vital Signs Date Time Vital Sign Value Performing Clinician Facility 01-23-2023 14:15-0400 Body height 182.88 cm Imad Asaad Other [facility] Other 01-23-2023 14:15-0400 Body mass index (BMI) [Ratio] 28.95 kg/m2 Imad Asaad Other [facility] Other 01-23-2023 14:15-0400 Body weight 96.84 kg Imad Asaad Other [facility] Other 01-23-2023 14:15-0400 Diastolic blood pressure 84 mm[Hg] Imad Asaad Other [facility] Other 01-23-2023 14:150400 Systolic blood pressure 139 mm[Hg] Imad Asaad Other [facility] [employer] Other Encounters Encounter Date Encounter Type Care Provider Facility Start: 01-16-2024 ambulatory Smithjuan Wilkinsi [facility] Start: 12-16-2023 End: 12-16-2023 ambulatory Dominique Vo MD Facility: [place] [facility] Start: 11-11-2023 End: 11-11-2023 ambulatory Dominique Vo MD Facility:[facility] Start: 11-01-2023 End: 11-01-2023 ambulatory Sarah Beard Facility:[facility] Start: 10-28-2023 ambulatory Junior Sinclair Facility :[facility] Stefanie Start: 09-30-2023 End: 09-30-2023 ambulatory Dominique Vo MD Facility: [facility] Start: 08-29-2023 End: 08-29-2023 ambulatory Junior Sinclair Facility:[facility] Frances christine Start: 07-10-2023 End: 07-10-2023 ambulatory Génesis L Shanika Facility:[facility] Frances christine Start: 07-04-2023 End: 07-04-2023 ambulatory Junior Sinclair Facility:[facility] Start: 05-14-2023 ambulatory Génesis L Shanika Facility: [facility] Stefanie Start: 05-09-2023 ambulatory Génesis Shanika Facility: [facility] Start: 05-07-2023 End: 05-07-2023 ambulatory Junior Sinclair Facility:[facility] Start: 04-29-2023 End: 04-29-2023 ambulatory Junior Sinclair Facility:[facility] Frances christine Start: 03-14-2023 End: 03-14-2023 ambulatory Génesis L Shanika Facility:[facility] Chrisney emmett Start: 02-21-2023 End: 02-21-2023 ambulatory Imad Asaad Facility:[facility] Start: 02-21-2023 End: 02-21-2023 ambulatory MD Junior Sinclair Work Phone: [facility] Work Phone: Start: 02-21-2023 End: 02-21-2023 Patient encounter procedure MD Junior Sinclair Work Phone: [facility] Work Phone: Start: 01-25-2023 ambulatory Génesis Voss Facility: [facility] Start: 01-23-2023 End: 01-23-2023 ambulatory Imad Asaad Other [facility] Other Start: 01-23-2023 Office outpatient ne w 45 minutes Imad Asaad [facility] Start: 06-29-2022 End: 06-30-[address] ANA ROSADO . Facility: Start: 06-19-2022 End: 06-20-[address] ANA ROSADO . Facility: Start: 06-08-2022 Encounter for genera l adult medical examination without abnormal findings DR ANA ROSADO . [facility] Start: 06-05-2022 End: 06-06-[address] [...] above: Performed By: #### P SAD #### [facility] [address] [place] [address] Dr. Raul Zaidi Plan of Treatment Date Care Activity Detail Author Start: 02-21-2023 [facility] Immunizations Immunization Date Immunization Notes Care Provider Fa cility 01-10-2019 tetanus toxoid, redu damaris diphtheria toxoid, and acellular pertussis vaccine, adsorbed MD Junior Sinclair Work Phone: [facility] Payers Date Payer Category Payer Unknown [id number] 2023 Unknown 2023 Self-pay [id number] 1970 Unknown [id number] 2.16.84 0.1.948188.3.579.2.593 1970 Unknown [id number] 2.16.84 0.1.331875.3.579.2.593 1970 Unknown [id number] 2.16.84 0.1.213669.3.579.2.593 1970 Unknown [id number] 2.16.8 40.1.563295.3.579.2.727 1970 Unknown [id number] 2.16.8 40.1.443386.3.579.2.727 1970 Unknown [id number] 2.16.8 40.1.033232.3.579.2.727 1970 Unknown [id number] 2.16.8 40.1.118225.3.579.2.727 1970 Unknown [id number] 2.16.8 40.1.018295.3.579.2.727 1970 Unknown [id number] 2.16.8 40.1.041071.3.579.2.727 1970 Unknown [id number] 2.16.8 40.1.339456.3.579.2.727 1970 Unknown [id number] 2.16.8 40.1.012787.3.579.2.727 1970 Unknown [id number] 2.16.8 40.1.257655.3.579.2.727 1969 Unknown [id number] 2.16.8 40.1.497100.3.579.2.727 1970 Unknown [id number] 2.16.8 40.1.524847.3.579.2.727 1970 Unknown [id number] 2.16.8 40.1.567750.3.579.2.727 1970 Unknown [id number] 2.16. 840.1.568585.3.579.2.196 1970 Unknown [id number] 2.16. 840.1.930384.3.579.2.196 1970 Unknown [id number] 2.16. 840.1.474973.3.579.2.196 1959 Unknown [id number] Unknown [id number] 2.16.8 40.1.971393.3.579.2.531 Social History Date Type Detail Facility Sex Assigned At [facility] Other Start: 01-10-[address] [facility] Start: 1970 Sex Assigned At Male [facility] Goals Date Patient Goal Desired Activity /State History and physical note 11-05-2023 Note Date & Type Note Facility 11-05-2023 Note [id number] #1.00TIFF [facility] Clinical Note 08-29-2023 Note Date & Type [...] - Will do a kenaolg shot Ordered: [facility] External Ambulatory Referral [facility] External Ambulatory Referral 2. Primary hypertension (I10: Essential (primary) hypertension) - At goal. Ordered: [facility] External Ambulatory Referral [facility] External Ambulatory Referral 3. Cervical radiculopathy, chronic (M54.12: Radiculopathy, cervical region) - Will send to pain. - Then will send to Rheum - Will have the patient follow up in 2 months - Unsure if Rheum is necessary, but given other medical hx will have the patient seen. Ordered: [facility] External Ambulatory Referral [facility] External Ambulatory Referral 4. Steatosis, liver (K76.0: Fatty (change of) liver, not elsewhere classified) - Keep following with GI. Ordered: [facility] External Ambulatory Referral [facility] External Ambulatory Referral 5. Cervical arthritis (M47.812: Spondylosis without myelopathy or radiculopathy, cervical region) As per number 3 Ordered: [facility] External Ambulatory Referral Follow-up No qualifying data [...] 08/22/2020 Recorded diphtheria/pertussis, acel/tetanus adult 01/10/2019 Recorded [facility] Comment on above: Result Comment: Elec tronically Signed By: Yahir PRABHAKAR, Junior Salcedo\.br\Date and Time Signed: 08/29/23 07:46 EDT Evaluation note 01-23-2023 Note Date & Type Note Facility 01-23-2023 Evaluation note Encounter Date Diagnosis Assessment Notes Jan, Hepatic steatosis (ICD-10 - K76.0) Jan, Elevated liver enzymes (ICD-10 - R74.8) Jan, Other [facility] ordered Labs ordered [facility] Other Evaluation note Note Date & Type Note Facility Evaluation note No assessment information availa [facility] Work Phone: History general Narrative - Reported Note Date & Type Note Facility History general Narrative - Reported Type Medical History anxiety Medical History hypertension Surgical History thyroidectomy Surgical History appendectomy Hospitalization History See Above [facility] Other Summary Purpose Family History No Family History Records FoundNo Family History Records FoundNo Family History Records FoundNo Family History Records Found Advance Directives No Advanced Directives Records Found Advance Directive Response Recorded Date/ Time Advance Directives No January 10, 019 8:02pm Chief Complaint and Reason for Visit Chief Complaint CAGLE Additional Source Comments (unrecognized sect ion and content) No Status Records FoundNo Status Records FoundNo Status Records FoundNo Status Records Found INFORMATION SOURCE (unrecogn ized section and content) DATE CREATED AUTHOR 10/22/2022 [facility] DATE CREATED AUTHOR AUTHOR'S ORGANIZ ATION 03/11/2023 [facility] DATE CREATED AUTHOR AUTHOR'S ORGANIZ ATION 12/26/2023 [facility] DATE CREATED AUTHOR AUTHOR'S ORGANIZ ATION 12/27/2023 [facility] REASON FOR VISIT (unrecogniz ed section and content) [facility] [place] Care Teams (unrecognized sec tion and content) [...] BE BASED ON THE PRIMARY CLINICAL RECORDS. [employer] provides no warranty or guarantee of the accuracy or completeness of information in this document.
[2023-12-30 07:16] VITALS: BP 145/84; PULSE 86; TEMP 37.4; O2SAT 99
[2023-12-30] MEDS: DEXAMETHASONE SOD PHOS 10 MG/ML VIAL INJ (08:14)
[2023-12-30] MEDS: BUPIVACAINE HCL 0.25% PF 25 MG/10 ML VIAL INJ (08:14)
[2023-12-30] MEDS: LIDOCAINE HCL 2% 400 MG/20 ML MDV 15 ML INJ (08:15)
[2023-12-30 08:21] VITALS: BP 188/93; PULSE 86; O2SAT 98
[2023-12-30 08:22] VITALS: BP 170/87; PULSE 84; O2SAT 97
--- NOTE | 2023-12-30 08:25 | P.ON_ITS ---
Date of procedure: 12/30/23 Pre-op diagnosis: Pain due to cervical spondylosis without myelopathy Post-op diagnosis: same as pre-op Procedure: Procedure: Left C2-3, 3-4 radiofrequency ablation Medications: Bupivacaine 0.25% 3cc, lidocaine 2% 3cc, dexamethasone 10mg The patient was seen and examined in the preoperative holding area.? The site was marked.? Written informed consent was obtained and placed on the chart.? The patient was brought to the medical procedure unit and placed in the prone position.? A timeout was completed verifying correct patient, procedure, positioning, and special requirements.? The skin overlying the target points, the designated medial branch, were prepped and draped in the usual sterile fashion.? The target point was achieved with a 20-gauge 15 cm with a 10 mm curved active tip radiofrequency cannula under direct fluoroscopic visualization .? The needle was inserted at level C2 on the left side. Needle tip position was confirmed with lateral fluoroscopic position.? Motor stimulation was carried out at 2 Hz up to 5 volts with the absence of extremity activity.? This was repeated at level C3, 4 on left side.?? Sensory stimulation was carried out.? Concordant pain was realized at the above- mentioned sites.? Then radiofrequency lesioning was carried out times 90 seconds at 80 degrees times 2 lesions at each level.? The radiofrequency probe was removed prior to cannula removal.? The above-mentioned injectate was placed in 1 mL increments.? The needle was removed.? Insertion sites were covered.? The patient was taken to the postoperative recovery area and monitored for an appropriate length of time before being found suitable for discharge in the company of a responsible adult. Surgeon: Dominique Vo Pathology: none sent Condition: stable Disposition: no change
== END 2023-12-30 08:29 | disposition home or self-care (01) ==
PROVIDERS: PCP Family Medicine; Visit Provider Anesthesiology
DX: M47.812 Spondylosis without myelopathy or radiculopathy, cervical region (principal)
CPT/HCPCS: 64633; 64634; J0665; J1100

== ENCOUNTER 2024-01-29 07:43 | Outpatient (OUT) | payer OTHER, SELFPAY ==
--- OUTSIDE RECORDS SUMMARY | 2024-01-29 07:45 | XMS_ITS | CCD ---
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 Name Role Phone PEREZ ., DR ANA [...] Singletary Primary Care Unavailable ROSADO ., DR AAN Singletary Consulting Unavailable Asaad, Imad Unavailable MD Lory Akers Attending Provider MD Junior Sinclair Primary Care Provider [phone] Lory Akers Attending Unavailable Vinayad, Imad Admitting Unavailable Junior Sinclair Primary Care Unavailable Tavo PRABHAKAR, Dominique Laughlin Attending Unavailable Tavo PRABHAKAR, Dominique Laughlin Attending Unavailable Tavo PRABHAKAR, Dominique Laughlin Attending Unavailable Tavo PRABHAKAR, Dominique Laughlin Attending Unavailable Shanika, INSIDE SALES EXECUTIVE Génesis Lawson Attending Unavailable TJ Voss Attending Unavailable Junior Sinclair Attending Unavailable RYANNE VossP Génesis Lawson Attending Unavailable Junior Sinclair Attending Unavailable Junior Sinclair Attending Unavailable Shanika, INSIDE SALES EXECUTIVE Génesis L Attending Unavailable Josefminmeet, Smith Talal Referring Unavaila ble SarminiAlexandreSmith Talal Attending Unavaila ble NONE, XXXX Admitting Unavailable Sarmini, Smith Talal Admitting Unavaila ble Sarmini, Smith Talal Referring Unavaila ble Sarmini, Smith Talal Attending Junior Hutchins Attending Junior Avelar Admitting Unavailable Sarah Beard Attending Junior Hutchins Referring Unavailable Sarah Beard Attending Junior Hutchins Attending Unavailable Allergies Allergy Classification Reported Allergen(s) Allergy Type Date of Onset Reaction(s) Facility (1 source) OXcarbazepine; Translations: [OXcarbazepine] Drug Allergy [facility] Repository (1 source) Pollen; Translations: [Pollen] Propensity to adverse reactions (disorder) [facility] Repository (1 source) Sertraline; Translations: [Zoloft] Drug Allergy [facility] Repository Medications Current Medications Medication Drug [...] Test Name Value Interpretation Reference Range Facility Reminderson 01-17-2024 Reminders Reminders From: Cipriano Bedolla To: [facility] - Reminders/Recalls; Sent: 11/14/2023 17:20:52 EDT Show up: 10/08/2026 17:20:00 EDT Subject: Ambulatory Reminder Due Date/Time: 10/31/2026 17:20:00 EDT Reminder/Recall Repeat colonoscopy in 3 years(2026) due to tubular adenoma > 10 mm as well as EGD repeat at the same time per Dr. Beard. [facility] Ambulatory Visit Summaryon 0 01-16-2024 Ambulatory Visit Summary Ambulatory Visit Summary GILMAR ADARSH Aguillon :1970 Visit Date:01/16/2024 Ambulatory Visit Instructions Your Diagnosis Fatty liver Chronic GERD Colon polyps Your Care Team Attending Physician - Chirag PRABHAKAR, Sarah Barajas Primary Care Physician - Junior Sinclair MD This Is Your Medications List omeprazole (omeprazole 40 mg Cap-) Contact prescribing physician if questions or concerns levothyroxine (levothyroxine 175 mcg (0.175 mg) Tab) metoprolol (metoprolol 25 mg ER Tab) Procedures Performed Colonoscopy (11/01/2023), Esophagogastroduodenoscopy (11/01/2023), Thyroidectomy (02/13/2018), Diverticulitis, Entire wisdom tooth, tongue and throat biopsy. Discharge Vitals Heart Rate (Peripheral) 68 Respiratory Rate 16 Blood Pressure 141/82 Height 182 cm Height 72 in Weight 96 kg Weight 211.2 lb BMI 28.98 Medications What How Much When Instructions New omeprazole (omeprazole 40 mg Daniel-) 1 Capsules By Mouth Every day Refills: 3 Pickup at [facility]/pharmacy #[id number] Unchanged levothyroxine (levothyroxine 175 mcg (0.175 mg) Tab) 1 Tablets By Mouth Every day Contact prescribing physician if questions or concerns Unchanged metoprolol (metoprolol 25 mg ER Tab) 1 Tablets By Mouth Every day Contact prescribing physician if questions or concerns Pharmacy Information [facility]/pharmacy #[id number]: [address], [place] [phone] Allergies OXcarbazepine (Unknown) Pollen (Unknown) Zoloft (Unknown) Problems Ongoing - Any problem that you are currently receiving treatment for. Ankylosis Anxiety Cervical radiculopathy, chronic Chronic GERD Diverticulitis Fatty liver Primary hypertension Psoriasis Seasonal allergies Sinusitis Steatosis, liver Thyroid disease Tinnitus of left ear Patient Survey You may receive a survey via text or e-mail asking about your office visit. Please share your experience with us by completing your survey. We appreciate your feedback and thank you for choosing us for your care. Normal [facility] Gastroenterology Office/Clin ic Noteon 01-16-2024 Gastroenterology Office/Clinic Note Gastroenterology Office/Clinic Note Chief Complaint follow up to EGD/Colonoscopy and fibroscan HPI Staff Patient is a 53 year old male who presents today for a follow up to EGD & Colonoscopy on 11/01/23 and FibroScan 01/02/24. Colon recall placed for 2026. Last visit 07/04/23 w/Dr. Beard: Assessment/Plan 2. Fatty liver (K76.0: Fatty (change [...] MAFLD Will repeat FibroScan in 6 months 3. Chronic GERD (K21.9: Gastro-esophageal reflux disease without esophagitis) Minimal, as controlled with symptoms, given the use of alcohol in the past I would rather to do EGD to screen for Sinclair's esophagus FibroScan: E 6.9 CAP 269 F0/F1 S2 EGD: Impression and Plan 1. Esophageal landmarks identified, diaphragm at 42 cm, GE junction at 34 cm, 8 cm hiatal hernia 2. 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 Moderate patchy erythema in the antrum with minimal amount of old blood (hematin), random biopsies were taken to rule out H. pylori 4. Normal examined duodenum Colonoscopy: Impression and Plan 1. Small internal hemorrhoids 2. 1.5 sessile [...] and retrieved 4. Normal examined terminal ileum Recommendations: Repeat colonoscopy:: In 3 years, Based on path . Pathology: Final Diagnosis (Verified) A: ESOPHAGUS, BIOPSY: -Squamous esophageal and specialized metaplastic columnar mucosa consistent with Sinclair esophagus - Negative for dysplasia B: STOMACH, BIOPSY: - Gastric antral and fundic gland mucosa with reactive gastropathy - Negative for intestinal metaplasia or dysplasia - Negative for H. pylori (immunohistochemical staining) Note: Appropriate positive control reviewed for H. pylori immunostaining. C: POLYP, TRANSVERSE COLON, POLYPECTOMY: - Tubular adenoma, completely excised with negative margins D: POLYP, SIGMOID COLON, POLYPECTOMY: - Tubular adenoma History of Present Illness Doing well, asymptomatic Physical Exam Vitals & Measurements HR: 68(Peripheral) RR: 16 BP: 141/82 HT: 72 in HT: 182 cm WT: 96 kg WT: 211.2 lb BMI: 28.98 Assessment/Plan 1. Fatty liver (K76.0: Fatty (change of) liver, not elsewhere classified) E 6.9, S2 Discussed safe amounts of alcohol use daily, lifestyle modifications for NAFLD Repeat FibroScan in 2 to 3 years 2. Chronic GERD (K21.9: Gastro-esophageal reflux disease without esophagitis) Start omeprazole daily given the Sinclair's esophagus C2 M6 with no dysplasia, repeat EGD in 3 years Also had large hiatal hernia, asymptomatic from the 3. Colon polyps (K63.5: Polyp of colon) Couple TA's, repeat in 3 years, negative margins on pathology Orders: omeprazole, 40 mg = 1 cap(s), Oral, Daily, # 90 cap(s), Refills(s) 3, Pharmacy: [facility]/pharmacy #[id number], 182, cm, 01/16/24 14:49:00 EDT, Height/Length Dosing, 96, kg, 01/16/24 14:49:00 EDT, Weight Dosing Follow-up No qualifying data available Problem List/Past Medical History Ongoing Ankylosis Anxiety Cervical radiculopathy, chronic Chronic GERD Diverticulitis Fatty liver Primary hypertension Psoriasis Seasonal allergies Sinusitis Steatosis, liver Thyroid disease Tinnitus of left ear Historical No qualifying data Procedure/Surgical History Colonoscopy (11/01/2023), Esophagogastroduodenoscopy (11/01/2023), Thyroidectomy (02/13/2018), Diverticulitis, Entire wisdom tooth, tongue and throat biopsy. Medications levothyroxine 175 mcg (0.175 mg) Tab, 175 mcg= 1 tab(s), Oral, Daily, 1 refills metoprolol 25 mg ER Tab, 25 mg= 1 tab(s), Oral, Daily, 1 refills Allergies OXcarbazepine (Unknown) Pollen (Unknown) Zoloft (Unknown) Social History Alcohol - High Risk, 01/07/2018 Current, Beer, 3-5 times per week, 01/07/2018 Substance Abuse - Denies Substance Abuse, 01/07/2018 Tobacco - Denies Tobacco Use, 01/07/2018 Never (less than 100 in lifetime) Tobacco Use:., 01/16/2024 Never (less than 100 in lifetime) Tobacco Use:. Former smokeless tobacco user, quit more than 30 days ago Smokeless Tobacco Use:., 08/29/2023 Family History Hypertension: Father. (more content not included)... Normal [facility] Comment on above: Result Comment: Elec tronically Signed By: Chirag PRABHAKAR, Sarah Barajas\.br\Date and Time Signed: 01/16/24 15:43 EDT Consultation Noteon 11-26-19 Consultation Note [id number]#1.00TIFF Normal [facility] Consultation Noteon 11-11-19 Consultation Note [id number]#1.00TIFF Normal [facility] Consultation Note [id number]#1.00TIFF [facility] Operative Reporton Operative Report [id number]#1.00TIFF [facility] Postoperative Documentson Postoperative Documents [id number]#1.00TIFF [facility] IntraOperative Documentson 0 11-06-2023 IntraOperative Documents [id number]#1.00TIFF [facility] Consenton 11-05-2023 Consent [id number]#1.00TIFF [facility] Discharge Instructionson Discharge Instructions [id number]#1.00TIFF [facility] Consent for Treatmenton 10-09 Consent for Treatment [id number]#1.00TIFF [facility] Discharge Instructionson Discharge Instructions ADARSH SCHAFER :1970 Visit Date:11/01/2023 Inpatient Discharge Instructions Your [...] Follow-Up Appointments Saturday 2:00 PM EDT Where: [facility] New Follow Up Appointments after Discharge Follow Up with Sarah Beard When: Comments: office will call for follow up Where: [place], [address] [phone] Business (1) Medications What How Much When [...] activities are safe for you. ? Take iafl-gmw-jugoysj and prescription medicines only as told by [...] provider. Document Revised: 09/05/2022 Document Reviewed: 09/05/2022 Elsevier Patient Education ? 2022 [employer] Sinclair's Esophagus (more content not included)... Normal [facility] Comment on above: Result Comment: Elec [...] history and physical Documented on chart. Thyroidectomy (44506483) on 02/13/2018 at 47 Years. Entire wisdom tooth (839087309). Diverticulitis surgery (744030245). tongue and throat biopsy.. Past Medical History No active or resolved past medical history items have been selected or recorded.. Family History Hypertension Father . Procedure History Thyroidectomy (20610681) on 02/13/2018 at 47 Years. Entire wisdom tooth (142580200). Diverticulitis surgery (714432156). tongue and throat biopsy.. Colorectal neoplasm risk [...] Daily, # 90 EA, Refills(s) 1, Pharmacy: [facility]/pharmacy #[id number], 158, cm, 08/29/23 7:21:00 EDT, Height/Length Dosing, 94.2, kg, 08/29/23 7:21:00 EDT, Weight Dosing metoprolol 25 mg ER Tab: 25 mg = 1 tab(s), Oral, Daily, # 90 tab(s), Refills(s) 1, Pharmacy: [facility]/pharmacy #[id number], 158, cm, 08/29/23 7:21:00 EDT, [...] Normal examined terminal ileum Images Procedure images: Rec_hd_video__09_ 29_13_910.jpg Rec_hd_video__ 28_56_342.jpg Rec_hd_video__09_ 26_04_242.jpg Rec_hd_video___ 24_43_972.jpg Rec1_hd_video__ _16_317.jpg Rec1_hd_video__ _01_066.jpg Rec1_hd_video__ 19_21_810.jpg Rec1_hd_video__ 19_18_072.jpg Rec1_hd_video__ 17_56_036.jpg Rec1_hd_video__ _52_673.jpg Rec1_hd_video__ 16_47_723.jpg Rec1_hd_video__ 14_18_188.jpg Rec1_hd_video__ _53_944.jpg Rec1_hd_video__ 11_36_204.jpg Rec1_hd_video__ _29_223.jpg Rec1_hd_video__ _21_998.jpg Rec1_hd_video__ 10_57_345.jpg Rec1_hd_video__ 10_45_043.jpg Rec1_hd_video__ _21_315.jpg Rec1_hd_video__24T09_ 09_07_279.jpg . Post-Procedure Complications: non (more content not included)... Normal [facility] Comment on above: Result Comment: Elec tronically Signed By: Chirag PRABHAKAR, Sarah Barajas\.niles\Date and Time Signed: 11/01/23 10:25 EDT Other Comment: Sallie temple Attachment - attachment storage system not supported [id number] Can be viewed in source systemMissing Attachment - attachment storage system not supported [id number] Can be viewed in source systemMissing Attachment - attachment storage system not supported 0112232 Can be viewed in source systemMissing Attachment - attachment storage system not supported 7320730 Can be viewed in source systemMissing Attachment - attachment storage system not supported 5553260 Can be viewed in source systemMissing Attachment - attachment storage system not supported 2388786 Can be viewed in source systemMissing Attachment - attachment storage system not supported 2188151 Can be viewed in source systemMissing Attachment - attachment storage system not supported 0519520 Can be viewed in source systemMissing Attachment - attachment storage system not supported 5158122 Can be viewed in source systemMissing Attachment - attachment storage system not supported 2530115 Can be viewed in source systemMissing Attachment - attachment storage system not supported 9531378 Can be viewed in source systemMissing Attachment - attachment storage system not supported 6029828 Can be viewed in source systemMissing Attachment - attachment storage system not supported 2043354 Can be viewed in source systemMissing Attachment - attachment storage system not supported 6025600 Can be viewed in source systemMissing Attachment - attachment storage system not supported 2363236 Can be viewed in source systemMissing Attachment - attachment storage system not supported 8738270 Can be viewed in source systemMissing Attachment - attachment storage system not supported 9406216 Can be viewed in source systemMissing Attachment - attachment storage system not supported 4564278 Can be viewed in source systemMissing Attachment - attachment storage system not supported 8862798 Can be viewed in source systemMissing Attachment - attachment storage system not supported 8539932 Can be viewed in source system Endoscopic [...] 4. Normal examined duodenum Images Procedure images: Rec_hd_video__T09_ 01_01_559.jpg Rec_hd_video_08_ 58_32_819.jpg Rec_hd_video__ 56_42_191.jpg Rec_hd_video__ 56_22_059.jpg Rec_hd_video__ 54_53_977.jpg Rec_hd_video__ 54_47_322.jpg Rec_hd_video_2023__T08_ 54_41_717.jpg Rec1_hd_video_2023__T08_ __874.jpg . Post-Procedure Complications: none. Estimated blood loss: [...] in GI clinic in 1-2 after discharge [facility] Comment on above: Result Comment: Elec tronically Signed By: Chirag PRABHAKAR, Sarah Barajas\.br\Date and Time Signed: 11/01/23 09:57 EDT Other Comment: Sallie temple Attachment - attachment storage system not supported [id number] Can be viewed in source systemMissing Attachment - attachment storage system not supported 3983057 Can be viewed in source systemMissing Attachment - attachment storage system not supported 2664913 Can be viewed in source systemMissing Attachment - attachment storage system not supported 1258715 Can be viewed in source systemMissing Attachment - attachment storage system not supported 7193915 Can be viewed in [facility] [place] Attachment - attachment storage system not supported 8729193 Can be viewed in source systemMissing Attachment - attachment storage system not supported 3077912 Can be viewed in source systemMissing Attachment - attachment storage system not supported [id number] Can be viewed in source system Inpatient Patient Summaryon 11-01-2023 Inpatient Patient Summary [place] [id number] [facility] Clinical Discharge Instructions PERSON INFORMATION Name: ADARSH SCHAFER [facility]#:[id number] PHYSICIANS Admitting Physician: Sarah Beard MD Attending Physician: Sarah Beard MD PCP: Junior Sinclair MD Discharge Diagnosis: Chronic GERD; Colon cancer screening Comment: PATIENT EDUCATION INFORMATION Instructions: Upper Endoscopy, Adult, Care After; Sinclair's Esophagus; Gastritis, Adult; Hiatal Hernia; Colonoscopy, Care After Surgery Salam (CUSTOM); Colon Polyps Medication Leaflets: Follow up: With: Address: When: Sarah Beard [address] [facility], [address], [address] [phone] Business (1) Comments: office will call for follow up Type Location Start [facility] Surgery [facility] 11/15/2023 2:00 PM 11/15/2023 2:20 PM Confirmed MEDICATION LIST Medications to Continue with No Changes Other Medications levothyroxine (levothyroxine 175 mcg (0.175 mg) Tab) 1 Tablets By Mouth every day. Refills: 1. metoprolol (metoprolol 25 mg ER Tab) 1 Tablets By Mouth every day. Refills: 1. Comment: Normal [facility] Main OR Intraoperative Recor don 11-01-2023 Main OR Intraoperative Record IntraOp Document Type FT Summary Primary Physician: Sarah Beard MD Finalized Date/Time: 11/01/23 14:12:04 Pt. Name: ADARSH SCHAFER/Sex: 1970 Male Med Rec #: [id number] Physician: Sarah Beard MD Financial #: [id number] Pt. Type: O Room/Bed: / Admit/Disch: 11/01/23 08:25:41 - Institution: Case Times FT Entry 1 Patient Times In Room 11/01/23 09:38:00 Out Room 11/01/23 10:23:00 Procedure Times Start 11/01/23 09:46:00 Stop 11/01/23 10:21:00 Anesthesia Times Start 11/01/23 09:38:00 Stop 11/01/23 10:23:00 Time at [facility] 11/01/23 09:59:00 Last Modified By: Kannan WEST, Isai Singletary 11/01/23 10:24:04 General Comments: 954 EGD completed MSRN 0958 Colonoscopy started MSRN 11/01/23 Chart opened for charge review per Dany Brunson RN. MN Case Attendance FT Entry 1 Entry 2 Entry 3 Case Attendee Pearl HENSLEY, Mook Brunner RN, Jayme Mark Role Performed Anesthesiologist Department Chair - Primary Staff - Other Residential Coordinator Time In 11/01/23 09:38:00 11/01/23 09:38:00 11/01/23 09:38:00 Time Out 11/01/23 10:23:00 11/01/23 10:23:00 11/01/23 10:23:00 Procedure EGD AND COLONOSCOPY(.) EGD AND COLONOSCOPY(.) EGD AND COLONOSCOPY(.) Comments Dr. Ochoa is supervising Last Modified By: Kannan WEST, Isai Brunner RN, Isai Brunner RN, Isai Singletary 11/01/23 10:24:05 11/01/23 10:24:05 11/01/23 10:24:05 Entry 4 Entry 5 Case Attendee Patricia CLAY, Joana Beard MD, [facility] Role Performed Scrub - Primary Surgeon - Primary Time In 11/01/23 09:38:00 11/01/23 09:38:00 Time Out 11/01/23 10:23:00 11/01/23 10:23:00 Procedure EGD AND COLONOSCOPY(.) EGD AND COLONOSCOPY(.) Comments Last Modified By: Kannan WEST, Isai Brunner RN, Isai Singletary 11/01/23 10:24:05 11/01/23 10:24:05 Perioperative Protocols FT [...] No Time Out Mook Monzon, Given Participants Kannan WEST, Amanda Candelario Micala E, Patricia CLAY, Chirag Gaston MD, [...] FT Pre-Care Text (more content not included)... [facility] Main OR PACU I Recordon 10-09 Main OR PACU I Record PACU Phase I Document Type FT Summary Primary Physician: Sarah Beard MD Finalized Date/Time: 11/01/23 11:32:26 Pt. Name: ADARSH SCHAFER /Sex: 1970 Male Med Rec #: [id number] Physician: Sarah Beard MD Financial #: [id number] Pt. Type: O Room/Bed: / Admit/Disch: 11/01/23 [...] By: Tanya Smiley RN 11/01/23 11:32 Normal [facility] Main OR Preoperative Recordo n 11-01-2023 Main OR Preoperative Record Holding Area Document Type FT Summary Primary Physician: Sarah Beard MD Finalized Date/Time: 11/01/23 08:39:08 Pt. Name: ADARSH SCHAFER /Sex: 1970 Male Med Rec #: [id number] Physician: Sarah Beard MD Financial #: [id number] Pt. Type: O Room/Bed: / Admit/Disch: 11/01/23 [...] completed prep at 0315 and remained NPO since/FANNY,RN Finalized By: Jayla Simons RN Document Signatures Signed By: Jayla Simons RN 11/01/23 08:39 Normal [facility] Monitor Recordon 11-01-2023 Monitor Record [id number]#1.00TIFF Normal [facility] Monitor Record [id number]#1.00TIFF Normal [facility] Outpatient Surgery Discharge Instructionon 11-01-2023 Outpatient Surgery Discharge Instruction [place] [address] Patient Discharge Instructions PERSON INFORMATION Name: ADARSH [...] THE NEAREST EMERGENCY ROOM OR CALL 911 I, ADARSH SCHAFER, have received the attached patient education materials/instructions and have verbalized understanding: May we do a follow up call? Yes No I was present when discharge instructions were given __ Patient Signature Date Clinican/Nurse Signature Date Follow up: With: Address: When: Sarah Beard [address], [address], [address] [phone] Business (1) Comments: office will call for follow up Type Location Start [facility] Surgery [facility] Services 11/15/2023 2:00 PM 11/15/2023 2:20 PM Confirmed Pharmacy Information: You may receive a survey from [employer] asking you to rate your care experience. Your feedback is important and will help us understand what we do well and how we can improve the quality of care we provide to you, your loved ones and our community. It?s an honor to serve you. Thank you for choosing [facility] HERE ARE THE MEDICATION CHANGES THAT [...] activities are safe for you. ? Take loxx-lya-bktxowa and prescription medicines only as told by [...] provider. Document Revised: 09/05/2022 Document Reviewed: 09/05/2022 Elsevier Patient Education ? 2022 [employer] Sinclair's Esophagus Sinclair's esophagus occurs when the (more content not included)... Normal [facility] Patient Education - [employer] 0 11-01-2023 [...] activities are safe for you. ? Take qzqe-qrs-pvotdjn and prescription medicines only as told by [...] provider. Document Revised: 09/05/2022 Document Reviewed: 09/05/2022 [employer] Patient Education ? 2022 [employer] Sinclair's Esophagus Sinclair's esophagus occurs when [...] symptoms such (more content not included)... Normal [facility] Progress Note-Physicianon Progress Note-Physician Patient: ADARSH [...] Daily, # 90 EA, Refills(s) 1, Pharmacy: [facility]/pharmacy #[id number], 158, cm, 08/29/23 7:21:00 EDT, Height/Length Dosing, 94.2, kg, 08/29/23 7:21:00 EDT, Weight Dosing metoprolol 25 mg ER Tab: 25 mg = 1 tab(s), Oral, Daily, # 90 tab(s), Refills(s) 1, Pharmacy: [facility]/pharmacy #[id number], 158, cm, 08/29/23 7:21:00 EDT, Height/Length Dosing, 94.2, kg, 08/29/23 7:21:00 EDT, Weight Dosing, Home Medications (2) Active levothyroxine 175 mcg (0.175 mg) Tab 175 mcg = 1 tab(s), Oral, Daily metoprolol 25 mg ER Tab 25 mg = 1 tab(s), Oral, Daily Problem list: All Problems Ankylosis / SNOMED CT 463356989 / Confirmed Anxiety / SNOMED CT 17995472 / Confirmed Cervical radiculopathy, chronic / SNOMED CT 853412873 / Confirmed Diverticulitis / SNOMED CT 444218945 / Confirmed Primary hypertension / SNOMED CT 11733008 / Confirmed Psoriasis / SNOMED CT 29121715 / Confirmed Seasonal allergies / SNOMED CT 0183825005 / Confirmed Sinusitis / SNOMED CT 44265938 / Confirmed Steatosis, liver / SNOMED CT 537220509 / Confirmed Thyroid disease / SNOMED CT 49779752 / Confirmed Overactive Thyroid and benign tumor Thyroid mass / SNOMED CT 3728676008 / Confirmed Tinnitus of left ear / SNOMED CT 956877359 / Confirmed TMJ (temporomandibular joint syndrome) / SNOMED CT 57619493 / Confirmed Canceled: Hyperthyroidism / SNOMED CT 12302869 Canceled: Nonalcoholic steatohepatitis (CAGLE) / SNOMED CT 3787798867 Canceled: Otitis media of both ears / SNOMED CT 818798596 Canceled: Tinea cruris / SNOMED CT 5659093992 Physical Examination Vital Signs 11/01/2023 11:05 EDT [...] mmHg mmHg (more content not included)... Normal [facility] Comment on above: Result Comment: Elec [...] Daily, # 90 EA, Refills(s) 1, Pharmacy: [facility]/pharmacy #[id number], 158, cm, 08/29/23 7:21:00 EDT, Height/Length Dosing, 94.2, kg, 08/29/23 7:21:00 EDT, Weight Dosing metoprolol 25 mg ER Tab: 25 mg = 1 tab(s), Oral, Daily, # 90 tab(s), Refills(s) 1, Pharmacy: [facility]/pharmacy #[id number], 158, cm, 08/29/23 7:21:00 EDT, [...] list: All Problems Ankylosis / SNOMED CT 167709442 / Confirmed Anxiety / SNOMED CT 97853511 / Confirmed Cervical radiculopathy, chronic / SNOMED CT 733011795 / Confirmed Diverticulitis / SNOMED CT 282716408 / Confirmed Primary hypertension / SNOMED CT 70105172 / Confirmed Psoriasis / SNOMED CT 27432058 / Confirmed Seasonal allergies / SNOMED CT 9567725127 / Confirmed Sinusitis / SNOMED CT 19993197 / Confirmed Steatosis, liver / SNOMED CT 105365350 / Confirmed Thyroid disease / SNOMED CT 62729762 / Confirmed Overactive Thyroid and benign tumor Thyroid mass / SNOMED CT 8465733046 / Confirmed Tinnitus of left ear / SNOMED CT 611307610 / Confirmed TMJ (temporomandibular joint syndrome) / SNOMED CT 85360996 / Confirmed Canceled: Hyperthyroidism / SNOMED CT 05871109 Canceled: Nonalcoholic steatohepatitis (CAGLE) / SNOMED CT 5672681003 Canceled: Otitis media of both ears / SNOMED CT 268669718 Canceled: Tinea cruris / SNOMED CT 8676969032, Active Problems (13) Ankylosis Anxiety Cervical radiculopathy, chronic Diverticulitis Primary hypertension Psoriasis Seasonal allergies Sinusitis Steatosis, liver Thyroid disease Thyroid mass Tinnitus of left ear TMJ (temporomandibular joint syndrome) Histories Past Medical History: No active or resolved past medical history items have been selected or recorded. Family History: Hypertension Father Procedure history: Thyroidectomy (86045245) on 02/13/2018 at 47 Years. Entire wisdom tooth (522737758). Diverticulitis surgery (213026566). tongue and throat biopsy. Social History Social [...] Results revie (more content not included)... Normal [facility] Comment on above: Result Comment: Elec tronically Signed By: Samuel Ochoa DO\.br\Date and Time Signed: 11/01/23 09:22 EDT Consultation Noteon 10-24-19 Consultation Note [id number]#1.00TIFF [facility] RAD - MISCon 10-07-2023 [facility] - MIS [id number]#1.00TIFF [facility] Consultation Noteon 10-01-19 Consultation Note [id number]#1.00TIFF [facility] Patient Letter FTon 2023 Patient Letter [facility] Junior Sinclair, [address] [place] [id number] Re: ADARSH SCHAFER Date of : 1970 To Whom It May Concern: Dr Sinclair sent over a referral for Adarsh Gilmar (: 68) and this is to verify the referral is to rule out rheumatoid arthritis. Family Medicine [address] [address] Normal [facility] Ambulatory Visit Summaryon 0 08-29-2023 Ambulatory [...] PM EDT With: Junior Sinclair MD Where: [facility] [place] Invalid Interpretation Code Primary hypertension [facility] 08-29-2023 Consent [id number]#1.00TIFF Normal [facility] Patient Educationon 08-29-19 24 Patient Education [...] 1? oz glass (more content not included)... [facility] Physician Referralon 024 Physician Referral [id number]#1.00TIFF [facility] Physician Referral [id number]#1.00TIFF [facility] Ambulatory Visit Summaryon 0 07-10-2023 Ambulatory [...] do next Scheduled Follow-Up Appointments Saturday. 2023 2:30 PM EDT With: Where: [facility] Surgical Services Saturday. 2023 3:00 PM EDT With: Junior Sinclair MD Where: [facility] Family Medicine Stefanie Normal [facility] Family Medicine Office/Clini c Noteon 07-10-2023 Family Medicine [...] day(s), # 14 tab(s), Refills(s) 0, [id number] 158, cm, 07/10/23 16:20:00 EST, Height/Length Dosing, 94.6, kg, 07/10/23 16:20:00 EST, Weight Dosing methylPREDNISolone, = 1 packet(s), Oral, As Directed, as directed on package labeling, X 6 day(s), # 21 tab(s), Refills(s) 0, [id number] 158, cm, 07/10/23 16:20:00 EST, Height/Length Dosing, 94.6, kg, 07/10/23 16:20:00 EST, Weight Dosing 2. Otitis media of both ears (H66.93: Otitis media, unspecified, bilateral) MARIBETH TM red as well as canals left TM bulging with clear fluid Ordered: amoxicillin-clavulanate, = 1 tab(s), Oral, q12hr, X 7 day(s), # 14 tab(s), Refills(s) 0, [id number] 158, cm, 07/10/23 16:20:00 EST, Height/Length Dosing, 94.6, kg, 07/10/23 16:20:00 EST, Weight Dosing methylPREDNISolone, = 1 packet(s), Oral, As Directed, as directed on package labeling, X 6 day(s), # 21 tab(s), Refills(s) 0, [id number] 158, cm, 07/10/23 16:20:00 EST, Height/Length Dosing, 94.6, kg, 07/10/23 16:20:00 EST, Weight Dosing 3. BMI 37.0-37.9, adult (Z68.37: Body mass index [BMI] 37.0-37.9, adult) BMI education complete Ordered: amoxicillin-clavulanate, = 1 tab(s), Oral, q12hr, X 7 day(s), # 14 tab(s), Refills(s) 0, Pharmacy: [facility]/pharmacy #[id number], 158, cm, 07/10/23 16:20:00 EST, Height/Length Dosing, 94.6, kg, 07/10/23 16:20:00 EST, Weight Dosing methylPREDNISolone, = 1 packet(s), Oral, As Directed, as directed on package labeling, X 6 day(s), # 21 tab(s), Refills(s) 0, [id number] 158, cm, 07/10/23 16:20:00 EST, [...] Recorded diphtheria/pertussis, acel/tetanus adult 01/10/2019 Recorded Normal [facility] Comment on above: Result Comment: Elec tronically Signed By: Génesis Ruano\.br\Date and Time Signed: 07/10/23 16:44 EST Consent for Procedure/Surger yon 07-08-2023 Consent for Procedure/Surgery [id number]#1.00TIFF Normal [facility] Ambulatory Visit Summaryon 0 07-04-2023 Ambulatory Visit Summary ADARSH SCHAFER Shelley :1970 Visit Date:07/04/2023 Ambulatory Visit Instructions Your Diagnosis Nonalcoholic steatohepatitis (CAGLE) Fatty liver Chronic GERD Your Care Team Attending Physician - Sarah Beard MD Primary Care Physician - Junior Sinclair MD Referring Physician - Junior Sinclair MD This Is [...] PM EDT With: Junior Sinclair MD Where: [facility] [place] Normal [facility] Gastroenterology Office/Clin ic Noteon 07-04-2023 Gastroenterology Office/Clinic Note Chief Complaint ref by meme CAGLE and RUQ pain HPI Staff Patient is a 52 year old male who was referred by Yahir for GURJIT. Denies recent imaging or previous EGD/Colonoscopy. Denies fhx of colon ca C/o RUQ abdominal pain, comes and goes, very mild. US RUQ 06/29/22 @ [place]: IMPRESSION: 1. Increased echogenicity of liver consistent [...] gm/dL (05/07/23) TSH 1.89 Liver workup at [facility] 02/18/23 - all negative. History of Present Illness used to drink 4-6 beers a day, slowed down 1 year ago 10 beers a week Had fibroscan 02/2023 at [facility]: CAP 263, E 7.8 kPa Had elevation [...] OP Consult New/Estab Pt Moderate 40 Min 74551 3. Chronic GERD (K21.9: Gastro-esophageal reflux disease without esophagitis) Minimal, as controlled with symptoms, given the use of alcohol in the past I would rather to do EGD to screen for Sinclair's esophagus Ordered: Colonoscopy (Hospital Procedure) EGD Endoscopy (Hospital Procedure) OP Consult New/Estab Pt Moderate 40 Min 88392 4. Screening for colon cancer Average risk, [...] Recorded diphtheria/pertussis, acel/tetanus adult 01/10/2019 Recorded Normal [facility] Comment on above: Result Comment: Elec tronically Signed By: Chirag PRABHAKAR, Sarah Barajas\.br\Date and Time Signed: 07/04/23 15:25 EST Ambulatory Visit Summaryon 1 07-07-2022 Ambulatory Visit Summary ADARSH SCHAFER Shelley :1970 Visit Date:05/07/2023 Ambulatory Visit Instructions Your Care Team Attending Physician - Junior Sinclair MD Primary Care Physician - Génesis Ruano This Is Your Medications List apremilast (Otezla Starter Pack) levothyroxine (levothyroxine 175 mcg (0.175 mg) Tab) metoprolol (metoprolol 25 mg ER Tab) Procedures Performed Thyroidectomy (02/13/2018), Diverticulitis, Entire wisdom tooth, tongue and throat biopsy. What to do next Scheduled Follow-Up Appointments Saturday. 2023 3:00 PM EDT With: Junior Sinclair MD Where: [facility] [place] Normal [facility] CMPon 05-07-2023 Albumin [Mass/Vol] 4.2 g/dL Normal 3.3-5.0 [facility] Comment on above: Performed By: #### 2 357673, [id number], [id number] ####[facility] [address] [place] [address] Albumin/Globulin (S) [Mass conc ratio] 1.3 Normal 1.1-2.2 [facility] Comment on above: Performed By: #### 2 533528, [id number], [id number] ####[facility] [address] [place] [address] ALP [Catalytic activity/Vol] 63 Int._Unit/L Normal 21-98 [facility] Comment on above: Performed By: #### 2 357591, 78533104, 49910825 ####[facility] [address] [place] [address] ALT No additional P-5'-P [Catalytic activity/Vol] 44 Int._Unit/L Normal 6-46 [facility] Comment on above: Performed By: #### 2 846729, 99573268, 06268929 ####[facility] [address] [place] [address] Anion gap [Moles/Vol] 12 mmol/L Normal 6-16 [facility] Comment on above: Performed By: #### 2 100605, 94319676, 47299081 ####[address] [address] AST [Catalytic activity/Vol] 38 Int._Unit/L Normal 5-43 [facility] Comment on above: Performed By: #### 2 345661, 25173371, 15045527 ####[facility] [address] [place] [address] Bilirubin [Mass/Vol] 0.6 mg/dL Normal 0.0-1.1 [facility] Comment on above: Performed By: #### 2 889613, 30982178, 39429410 ####[facility] [address] [place] [address] Calcium [Mass/Vol] 9.6 mg/dL Normal 8.9-11.1 [facility] Comment on above: Performed By: #### 2 130047, 28484895, 43183949 ####[facility] [address] [place] [address] Chloride [Moles/Vol] 101 mmol/L Normal 101-111 [facility] Comment on above: Performed By: #### 2 476535, 02925637, 77958179 ####[facility] [address] [place] [address] CO2 [Moles/Vol] 28 mmol/L Normal 21-31 [facility] Comment on above: Performed By: #### 2 943137, 61051733, 06145877 ####[facility] [address] [place] [address] Creatinine [Mass/Vol] 1.0 mg/dL Normal 0.5-1.3 [facility] Comment on above: Performed By: #### 2 830580, 23399868, 25641645 ####[facility] [address] [place] [address] Globulin (S) [Mass/Vol] 3.2 g/dL Normal 1.4-4.0 [facility] Comment on above: Performed By: #### 2 991934, 00020513, 61430702 ####[facility] [address] [place] [address] Glucose [Mass/Vol] 98 mg/dL Normal 55-199 [facility] Comment on above: Result Comment: If t his glucose result represents a fasting glucose, interpretation should refer to the following reference range: 55-99 mg/dL Performed By: #### 2 797808, 40030687, 23787342 ####[facility] [address] [place] [address] Potassium [Moles/Vol] 4.3 mmol/L Normal 3.5-5.3 [facility] Comment on above: Performed By: #### 2 794643, 47370404, 94470237 ####[facility] [address] [place] [address] Protein [Mass/Vol] 7.4 g/dL Normal 6.0-7.8 [facility] Comment on above: Performed By: #### 2 306046, 54969726, 00487443 ####[facility] [address] [place] [address] Sodium [Moles/Vol] 137 mmol/L Normal 135-145 [facility] Comment on above: Performed By: #### 2 860869, 14502262, 43845275 ####[facility] [address] [place] [address] Urea nitrogen [Mass/Vol] 10 mg/dL Normal 5-21 [facility] Comment on above: Performed By: #### 2 168210, 14476623, 48699783 ####[facility] [address] [place] [address] Urea nitrogen/Creatinin e [Mass ratio] 10 No Units Normal 10-20 [facility] Comment on above: Performed By: #### 2 681995, 55744624, 08905164 ####[facility] [address] [place] [address] Nurse Consultation Noteon Nurse Consultation Note Reason [...] Recorded diphtheria/pertussis, acel/tetanus adult 01/10/2019 Recorded Normal [facility] TSH With T4fr Reflexon 05-07 TSH Qn 1.89 m[IU]/L Normal 0.34-5.60 [facility] Comment on above: Performed By: #### 2 388186, 46881490, 23392897 ####[facility] [address] [place] [address] eGFRon 05-07-2023 GFR/1.73 sq M.predicted among non-blacks MDRD (S/P/Bld) [Vol rate/Area] 90 mL/min/1.73 m2 Normal >=59 [facility] Comment on above: Order Comment: Order added by Discern Expert. Result Comment: Track Oiler kirit kidney disease could be indicated at eGFR's of less than 60 mL/min/1.73m2. Kidney failure is indicated at less than 15 mL/min/1.73m2. Performed By: #### 2 218213, 02578492, 07914918 ####[facility] [address] [place] [address] Ambulatory Visit Summaryon 1 06-29-2022 Ambulatory Visit Summary ADARSH SCHAFER :1970 Visit Date:04/29/2023 Ambulatory Visit Instructions Your Diagnosis Primary hypertension Nonalcoholic steatohepatitis (CAGLE) Thyroid disease BMI 28.0-28.9,adult Overweight Nonsmoker Your Care Team Attending Physician - Junior Sinclair MD Primary Care Physician - Génesis Ruano This [...] PM EDT With: Junior Sinclair MD Where: [facility] Family Medicine Office/Clini c Noteon 04-29-2023 Family Medicine Office/Clinic Note HPI Staff Adarsh is a 52 year old male presenting to discuss lab results re: his CAGLE Labs done Feb 2023 at [facility] unknown dr ordered them Sees [...] Yahir PRABHAKAR, Junior Salcedo\.br\Date and Time Signed: 04/29/23 15:47 EST Patient [...] numbers. This can be done either in [place] or metric measurements. Note that charts and online BMI calculators are available to help you find your BMI quickly and easily without having to do these calculations yourself. To calculate your BMI in [place] ([place] measurements: 1. Measure your weight in [...] for Disease Control and Prevention: www.cdc.gov ? [place] Heart Association: www.heart.org ? National Heart, Lung, and Blood [place]: www.nhlbi.nih.gov Summary ? Body mass index (BMI) is a number that is calculated from a person's weight and height. ? BMI may help estimate how much of a person's weight is composed of fat. BMI can help identify those who may be at higher risk for certain medical problems. ? BMI can be measured using [place] measurements or metric measurements. ? BMI charts are used to identify whether you are underweight, normal weight, overweight, or obese. This information is not intended to replace advice given to you by your health care provider. Make sure you discuss any questions you have with your health care provider. Document Revised: 02/17/2020 Document Reviewed: 12/25/2019 [employer] Patient Education ? 2022 [place]. Normal [facility] Lab Reportson 03-27-2023 Lab Reports [id number]#1.00TIFF [facility] Lab Reportson 03-20-2023 Lab Reports [id number]#1.00TIFF [facility] [place] 03-15-2023 Consent [id number]#1.00TIFF [facility] Nurse Consultation Noteon Nurse Consultation Note [...] Recorded diphtheria/pertussis, acel/tetanus adult 01/10/2019 Recorded Normal [facility] Formson 01-23-2023 Forms [id number]:127 Normal [facility] US SINGLE QUAD RT UPPERon US [...] HARSHIL AVILES Date: 2022-06-29 07:54 Normal [facility] HEPATITIS PANEL, ACUTEon HBsAg Screen Negative Normal Negative [facility] Comment on above: Performed By: #### H EPACUT #### [facility] [address] [place] [address] Dr. Raul Zaidi HCV AB <0.1 Normal 0.0-0.9 [facility] Comment on above: Performed By: #### H EPACUT #### [facility] [address] [place] [address] Dr. Raul Zaidi Hep A Ab, IgM Negative Normal Negative [facility] Comment on above: Performed By: #### H EPACUT #### [facility] [address] [place] [address] Dr. Raul Zaidi Hep B Core Ab, IgM Negative Normal Negative [facility] Comment on above: Performed By: #### H EPACUT #### [facility] [address] [place] [address] Dr. Raul Zaidi Interpretation: Comment Normal [facility] Comment on above: Result Comment: Nega tive Not infected with HCV, unless recent infection is suspected or other evidence exists to indicate HCV infection. Performed By: #### H EPACUT #### [facility] [address] [place] [address] Dr. Raul Zaidi CBC AUTO DIFFon 06-05-2022 BASO # 0.0 103/ul Normal 0.0-0.1 [facility] Comment on above: Performed By: #### C BC #### [facility] [address] [place] [address] Dr. Raul Zaidi Basophils/100 WBC (Bld) 0.5 % Normal 0.2-2.0 [facility] Comment on above: Performed By: #### C BC #### [facility] [address] [place] [address] Dr. Raul Zaidi EO # 0.1 103/ul Normal 0.0-0.7 [facility] Comment on above: Performed By: #### C BC #### [facility] [address] [place] [address] Dr. Raul Zaidi Eosinophils/100 WBC (Bld) 1.2 % Normal 0.9-7.0 [facility] Comment on above: Performed By: #### C BC #### [facility] [address] [place] [address] Dr. Raul Zaidi Erythrocyte distribution width (RBC) [Ratio] 13.0 % Normal 11.0-15.0 [facility] Comment on above: Performed By: #### C BC #### [facility] [address] [place] [address] Dr. Raul Zaidi Hematocrit (Bld) [Volume fraction] 41.9 % Critically low 42.0-54.0 [facility] Comment on above: Performed By: #### C BC #### [facility] [address] [place] [address] Dr. Raul Zaidi Hemoglobin (Bld) [Mass/Vol] 14.3 g/dL Normal 14.0-18.0 [facility] Comment on above: Performed By: #### C BC #### [facility] [address] [place] [address] Dr. Raul Zaidi IG # 0.06 10e3/ul Critically high 0.00-0.03 [facility] Comment on above: Performed By: #### C BC #### [facility] [address] [place] [address] Dr. Raul Zaidi IG % 0.8 % Critically high 0.0-0.5 [facility] Comment on above: Performed By: #### C BC #### [facility] [address] [place] [address] Dr. Raul Zaidi LYMPH # 1.6 103/ul Normal 1.2-3.8 [facility] Comment on above: Performed By: #### C BC #### [facility] [address] [place] [address] Dr. Raul Zaidi Lymphocytes/100 WBC (Bld) 20.9 % Normal 20.5-60.0 [facility] Comment on above: Performed By: #### C BC #### [facility] [address] [place] [address] Dr. Raul Zaidi MANUAL DIFF REQ NO Normal [facility] Comment on above: Performed By: #### C BC #### [facility] [address] [place] [address] Dr. Raul Zaidi MCH (RBC) [Entitic mass] 31.5 pg Normal 25.9-34.0 [facility] Comment on above: Performed By: #### C BC #### [facility] [address] [address] [address] Raul Zaidi MCHC (RBC) [Mass/Vol] 34.1 g/dL Normal 29.9-35.2 [facility] Comment on above: Performed By: #### C BC #### [facility] [address] [place] [address] Dr. Raul Zaidi MCV (RBC) [Entitic vol] 92.3 fL Normal 80.0-94.0 [facility] Comment on above: Performed By: #### C BC #### [facility] [address] [place] [address] Dr. Raul Zaidi MONO # 0.7 103/ul Normal 0.3-0.8 [facility] Comment on above: Performed By: #### C BC #### [facility] [address] [place] [address] Dr. Raul Zaidi Monocytes/100 WBC (Bld) 9.3 % Normal 1.7-12.0 [facility] Comment on above: Performed By: #### C BC #### [facility] [address] [place] [address] Dr. Raul Zaidi NEUT # 5.2 103/ul Normal 1.4-6.5 [facility] Comment on above: Performed By: #### C BC #### [facility] [address] [place] [address] Dr. Raul Zaidi Neutrophils/100 WBC (Bld) 67.3 % Normal 43.0-75.0 [facility] Comment on above: Performed By: #### C BC #### [facility] [address] [place] [address] Dr. Raul Zaidi Platelet mean volume (Bld) [Entitic vol] 8.4 fL Critically low 9.5-13.5 [facility] Comment on above: Performed By: #### C BC #### [facility] [address] [place] [address] Dr. Raul Zaidi PLT 243 103/ul Normal 150-450 [facility] Comment on above: Performed By: #### C BC #### [facility] [address] [place] [address] Dr. Raul Zaidi RBC 4.54 106/ul Critically low 4.70-6.10 [facility] Comment on above: Performed By: #### C BC #### [facility] [address] [address] [address] Raul Zaidi WBC 7.7 103/ul Normal 4.0-11.0 [facility] Comment on above: Performed By: #### C BC #### [facility] [address] [address] [address] Raul Zaidi LIPID PROFILEon 06-05-2022 CHOL-HDL RATIO NORM SEE BELOW Normal [facility] Comment on above: Result Comment: 3.3 - 4.4 LOW RISK 4.4 - 7.1 AVERAGE RISK 7.1 - 11.0 MODERATE RISK >11.0 HIGH RISK Performed By: #### L IPID, CMP #### [facility] [address] [address] [address] Raul Zaidi Cholesterol [Mass/Vol] 225 mg/dL Critically high <=200 [facility] Comment on above: Performed By: #### L IPID, CMP #### [facility] [address] [address] [address] Raul Zaidi Cholesterol in HDL [Mass/Vol] 97 mg/dL Critically high 40-60 [facility] Comment on above: Performed By: #### L IPID, CMP #### [facility] [address] [address] [address] Raul Zaidi Cholesterol in LDL [Mass/Vol] 113.2 mg/dL Normal [facility] Comment on above: Performed By: #### L IPID, CMP #### [facility] [address] [address] [address] Raul Zaidi Cholesterol.total/ Cholesterol in HDL [Mass ratio] 2.3 {ratio} Normal [facility] Comment on above: Performed By: #### L IPID, CMP #### [facility] [address] [address] [address] Raul Zaidi HDL NORMAL > or = 60 mg/dl - LO W CARDIOVASCULAR RISK <40 mg/dl - HIGH CARDIOVASCULAR RISK Normal [facility] Comment on above: Performed By: #### L IPID, CMP #### [facility] [address] [address] [address] Raul Zaidi LDL CALC NORMAL SEE BELOW Normal [facility] Comment on above: Result Comment: <100 mg/dl OPTIMAL 100 - 129 mg/dl NEAR OR ABOVE OPTIMAL 130 - 159 mg/dl BORDERLINE HIGH 160 - 189 mg/dl HIGH >190 mg/dl VERY HIGH Performed By: #### L IPID, CMP #### [facility] [address] [place] [address] Dr. Raul Zaidi Triglyceride [Mass/Vol] 74 mg/dL Normal <=150 [facility] Comment on above: Performed By: #### L IPID, CMP #### [facility] [address] [place] [address] Dr. Raul Zaidi VLDL CALC 14.8 mg/dL Normal [facility] Comment on above: Performed By: #### L IPID, CMP #### [facility] [address] [place] [address] Dr. Raul Zaidi PROF 14(COMP METB)on 022 Albumin [Mass/Vol] 4.0 g/dL Normal 3.4-5.0 [facility] Comment on above: Performed By: #### L IPID, CMP #### [facility] [address] [place] [address] Dr. Raul Zaidi Albumin/Globulin [Mass ratio] 0.9 {ratio} Normal [facility] Comment on above: Performed By: #### L IPID, CMP #### [facility] [address] [place] [address] Dr. Raul Zaidi ALP [Catalytic activity/Vol] 57 U/L Normal 46-116 [facility] Comment on above: Performed By: #### L IPID, CMP #### [facility] [address] [place] [address] Dr. Raul Zaidi ALT [Catalytic activity/Vol] 82 U/L Critically high 16-63 [facility] Comment on above: Performed By: #### L IPID, CMP #### [facility] [address] [address] [address] Raul Zaidi Anion gap [Moles/Vol] 14.9 mmol/L Normal [facility] Comment on above: Performed By: #### L IPID, CMP #### [facility] [address] [address] [address] Raul Zaidi AST [Catalytic activity/Vol] 76 U/L Critically high 15-37 [facility] Comment on above: Performed By: #### L IPID, CMP #### [facility] [address] [place] [address] Dr. Raul Zaidi Bilirubin [Mass/Vol] 0.9 mg/dL Normal 0.2-1.0 [facility] Comment on above: Performed By: #### L IPID, CMP #### [facility] [address] [place] [address] Dr. Raul Zaidi Calcium [Mass/Vol] 9.3 mg/dL Normal 8.5-10.1 [facility] Comment on above: Performed By: #### L IPID, CMP #### [facility] [address] [address] [address] Raul Zaidi Chloride [Moles/Vol] 99 mmol/L Normal 98-107 [facility] Comment on above: Performed By: #### L IPID, CMP #### [facility] [address] [address] [address] Raul Zaidi CO2 [Moles/Vol] 28.4 mmol/L Normal 21.0-32.0 [facility] Comment on above: Performed By: #### L IPID, CMP #### [facility] [address] [place] [address] Dr. Raul Zaidi Creatinine [Mass/Vol] 0.72 mg/dL Normal 0.70-1.30 [facility] Comment on above: Performed By: #### L IPID, CMP #### [facility] [address] [address] [address] Raul Zaidi EGFR-AF GABONESE >60 Normal >=60 [facility] Comment on above: Performed By: #### L IPID, CMP #### [facility] [address] [address] [address] Raul Zaidi EGFR-NON AF GABONESE >60 Normal >=60 [facility] Comment on above: Performed By: #### L IPID, CMP #### [facility] [address] [address] [address] Raul Zaidi Globulin (S) [Mass/Vol] 4.3 g/dL Normal [facility] Comment on above: Performed By: #### L IPID, CMP #### [facility] [address] [place] [address] Dr. Raul Zaidi Glucose [Mass/Vol] 83 mg/dL Normal 74-106 [facility] Comment on above: Performed By: #### L IPID, CMP #### [facility] [address] [place] [address] Dr. Raul Zaidi Potassium [Moles/Vol] 4.3 mmol/L Normal 3.5-5.1 [facility] Comment on above: Performed By: #### L IPID, CMP #### [facility] [address] [place] [address] Dr. Raul Zaidi Protein [Mass/Vol] 8.3 g/dL Critically high 6.4-8.[address] [facility] Comment on above: Performed By: #### L IPID, CMP #### [facility] [address] [place] [address] Dr. Raul Zaidi Sodium [Moles/Vol] 138 mmol/L Normal 136-145 [facility] Comment on above: Performed By: #### L IPID, CMP #### [facility] [address] [place] [address] Dr. Raul Zaidi Urea nitrogen [Mass/Vol] 5.0 mg/dL Critically low 7.0-18.0 [facility] Comment on above: Performed By: #### L IPID, CMP #### [facility] [address] [place] [address] Dr. Raul Zaidi Urea nitrogen/Creatinin e [Mass ratio] 6.9 mg/mg Normal [facility] Comment on above: Performed By: #### L IPID, CMP #### [facility] [address] [place] [address] Dr. Raul Zaidi Vital Signs Date Time Vital Sign Value Performing Clinician Facility 01-23-2023 14:15-0400 Body height 182.88 cm Imad Asaad Other [facility] Other 01-23-2023 14:15-0400 Body mass index (BMI) [Ratio] 28.95 kg/m2 Imad Asaad Other [facility] Other 01-23-2023 14:15-0400 Body weight 96.84 kg Imad Asaad Other [facility] Other 01-23-2023 14:15-0400 Diastolic blood pressure 84 mm[Hg] Imad Asaad Other [facility] Other 01-23-2023 14:15-0400 Systolic blood pressure 139 mm[Hg] Imad Asaad Other [facility] Other Encounters Encounter Date Encounter Type Care Provider Facility Start: 01-16-2024 End: 01-16-2024 ambulatory Smith Talal Josefmini Facility:[facility] Start: 01-02-2024 End: 01-02-2024 [facility] Facility[facility] Start: 12-30-2023 End: 12-30-2023 ambulatory Dominique Vo MD Facility: [facility] Start: 12-16-2023 End: 12-16-2023 ambulatory Dominique Vo MD Facility: [facility] Start: 11-11-2023 End: 11-11-2023 [facility] Start: 11-01-2023 End: 11-01-2023 ambulatory Smith Talal Josefmini Facility:[facility] Start: 10-28-2023 ambulatory Junior Sinclair Facility :[facility] Start: 09-30-2023 End: 09-30-2023 ambulatory Dominique Vo MD Facility: [facility] Start: 08-29-2023 End: 08-29-2023 ambulatory Junior Sinclair Facility[facility] Start: 07-10-2023 End: 07-10-2023 ambulatory [employer]EC[employer] Génesis L Shanika Facility: [facility] Start: 07-04-2023 End: 07-04-2023 ambulatory Junior Sinclair Facility:[facility] Start: 05-14-2023 ambulatory INS[employer] SAL[employer] EXECUTIVE Génesis L Shanika Facil ity:[facility] Start: 05-09-2023 ambulatory INSIDE SALES EXECUTIVE Génesis Shanika Facilit y:[facility] Start: 05-07-2023 End: 05-07-2023 ambulatory Junior Sinclair Facility:[facility] Start: 04-29-2023 End: 04-29-2023 ambulatory Junior Sinclair Facility: [facility] Start: 03-14-2023 End: 03-14-2023 ambulatory INS[employer] SALES EXECUTIVE Génesis L Shanika Facility: [facility] Start: 02-21-2023 End: 02-21-2023 ambulatory Imad Asaad Facility:[facility] Start: 02-21-2023 End: 02-21-2023 ambulatory MD Junior Sinclair Work Phone: [facility] Work Phone: Start: 02-21-2023 End: 02-21-2023 Patient encounter procedure MD Junior Sinclair Work Phone: [facility] Work Phone: Start: 01-25-2023 ambulatory [employer]EC[employer]IVE Génesis L Shanika Facil ity: [facility] Start: 01-23-2023 End: 01-23-2023 ambulatory Imad Asaad Other [employer] Other Start: 01-23-2023 Office outpatient ne w 45 minutes Imad Asaad [facility] Start: 06-29-2022 End: 06-30-[address] ANA ROSADO . Facility:[facility] Start: 06-19-2022 End: 06-20-[address] ANA ROSADO . Facility:[facility] Start: 06-08-2022 Encounter for genera l adult medical examination without abnormal findings DR ANA ROSADO . [facility] Start: 06-05-2022 End: 06-06-[address] ANA ROSADO . Facility:[facility] Start: 06-05-2022 End: 06-06-2022 Encounter for general adult medical examination without abnormal findings DR ANA ROSADO . Facility:[facility] Procedures Date Procedure Procedure Detail Performing Clinician Start: 02-21-2023 Ultrasound elastogra phy of liver MD Junior Sinclair Work Phone: Start: 06-05-[address] ANA GIBBONST . Comment on above: Performed By: #### P SAD #### [facility] [address] [place] [address] Dr. Raul Zaidi Plan of Treatment Date Care Activity Detail Author Start: 02-21-2023 [facility] Immunizations Immunization Date Immunization Notes Care Provider Fa cility 01-10-2019 tetanus toxoid, redu damaris diphtheria toxoid, and acellular pertussis vaccine, adsorbed MD Junior Sinclair Work Phone: [facility] Payers Date Payer Category Payer Unknown [id number] 2023 Unknown 2023 Self-pay [id number] 1970 Unknown [id number] 2.16.84 [id number] 1969 Unknown [id number] .16.84 0.1.346395.3.579.2.593 1969 Unknown [id number] .16.84 0.1.310901.3.579.2.593 1969 Unknown [id number] 2.16. 840.1.923411.3.579.2.196 1969 Unknown [id number] 2.16. 840.1.658484.3.579.2.196 1969 Unknown [id number] 2.16. 840.1.384416.3.579.2. 1969 Unknown [id number] 2.16. 840.1.762347.3.579.2.196 1969 Unknown [id number] 2.16.8 40.1.356241.3.579.2.72 1969 Unknown [id number] 2.16.8 40.1.666847.3.579.2.72 1969 Unknown [id number] 2.16.8 40.1.926967.3.579.2 1969 Unknown [id number] 2.16.8 40.1.561938.3.579.2.72 1969 Unknown [id number] 2.16.8 40.1.458773.3.579.2. 1969 Unknown [id number] 2.16.8 40.1.349756.3.579.2 1969 Unknown [id number] 2.16.8 40.1.614206.3.579.2.72 1969 Unknown [id number] 2.16.8 40.1.218230.3.579.2.72 1969 Unknown [id number] 2.16.8 40.1.354405.3.579.2.72 1969 Unknown [id number] 2.16.8 40.1.903204.3.579.2.72 1969 Unknown [id number] 2.16.8 40.1.577230.3.579.272 1969 Unknown [id number] 2.16.8 40.1.148489.3.579.2.727 1969 Unknown [id number] 2.16.8 40.1.161876.3.579.2727 1959 Unknown [id number] Unknown [id number] 2.16.8 40.1.949573.3.579.2.531 Social History Date Type Detail Facility Sex Assigned At [facility] [facility] [employer] Other Start: 01-10-2019 Tobacco smoking stat us AZIS Never smoked tobacco (finding) [facility] Start: 1970 Sex Assigned At Male F [facility] Goals Date Patient Goal Desired Activity /State History and physical note 11-05-2023 Note Date & Type Note Facility 11-05-2023 Note [id number] #[id number] [facility] Clinical Note 08-29-2023 Note Date & Type Note Facility 08-29-2023 Note HPI Staff Adarsh is a 52 year old male presenting to discuss a referral to rheumatology for athritis in neck whoever Dr iSnclair recommends Patient would like a kenalog shot [...] - Will do a kenaolg shot Ordered: [facility] External Ambulatory Referral [facility] External Ambulatory Referral 2. Primary hypertension (I10: Essential (primary) hypertension) - At goal. Ordered: [facility] External Ambulatory Referral [facility] External Ambulatory Referral 3. Cervical radiculopathy, chronic (M54.12: Radiculopathy, cervical region) - Will send to pain. - Then will send to Rheum - Will have the patient follow up in 2 months - Unsure if Rheum is necessary, but given other medical hx will have the patient seen. Ordered: [facility] External Ambulatory Referral [facility] External Ambulatory Referral 4. Steatosis, liver (K76.0: Fatty (change of) liver, not elsewhere classified) - Keep following with GI. Ordered: [facility] External Ambulatory Referral [facility] External Ambulatory Referral 5. Cervical arthritis (M47.812: Spondylosis without myelopathy or radiculopathy, cervical region) As per number 3 Ordered: [facility] External Ambulatory Referral Follow-up No qualifying data [...] 08/22/2020 Recorded diphtheria/pertussis, acel/tetanus adult 01/10/2019 Recorded [facility] Comment on above: Result Comment: Elec tronically Signed By: Yahir PRABHAKAR, Junior Valadez\Date and Time Signed: 08/29/23 07:46 EDT Evaluation note 01-23-2023 Note Date & Type Note Facility 01-23-2023 Evaluation note Encounter Date Diagnosis Assessment Notes Jan, Hepatic steatosis (ICD-10 - K76.0) Jan, Elevated liver enzymes (ICD-10 - R74.8) Jan, Other [facility] ordered Labs ordered [employer] [facility] Other Evaluation note Note Date & Type Note Facility Evaluation note No assessment information availa [facility] Work Phone: History general Narrative - Reported Note Date & Type Note Facility History general Narrative - Reported Type Medical History anxiety Medical History hypertension Surgical History thyroidectomy Surgical History appendectomy Hospitalization History See Above [employer] [facility] Other Summary Purpose Family History No Family [...] and content) DATE CREATED AUTHOR 10/22/2022 [facility] DATE CREATED AUTHOR AUTHOR'S ORGANIZ ATION 03/11/2023 [facility] DATE CREATED AUTHOR AUTHOR'S ORGANIZ ATION 01/04/2024 [facility] DATE CREATED AUTHOR AUTHOR'S ORGANIZ ATION 01/18/2024 [facility] REASON FOR VISIT (unrecogniz ed section and content) [facility] Care Teams (unrecognized sec tion and content) [...] BE BASED ON THE PRIMARY CLINICAL RECORDS. [employer] provides no warranty or guarantee of the accuracy or completeness of information in this document.
--- NOTE | 2024-01-29 07:56 | P.CN_ITS ---
Consult Note: HPI Data of Consult Patient: known to practice within the last 3 years Consult date: 09/30/23 Requesting Physician: Marianne Head NP Primary Care Provider: AMIE WANG Consult Narrative Reason for consult: neck pain, headaches Narrative: 52yom who presents for evaluation. several years of neck pain and headaches. 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 engaged in >6 weeks of provider directed home exercises, with minimal relief. uses otc pain meds, as needed. most recent xray consistent with cervical facet arthropathy. patient denies numbness tingling radicular pain. Pain today 2/10, increasing to 5/10. Recently underwent right and left C2-3 C3-4 facet RFA with >50% improvement overall. Left side less improvement than right side, more stiffness to left side of neck off and on. Mild improvement with ice. cc:: CC: Marianne Head NP Review of Systems ROS Status of ROS 10 or more systems reviewed and unremark able except as noted in history and below Musculoskeletal Reports: neck pain PFSH PFSH Medical History Diverticulitis ?K57.92 - Diverticulitis of intestine, part unspecified, without perforation or abscess without bleeding (ICD-10) Surgical History H/O thyroidectomy ?E89.0 - Postprocedural hypothyroidism (ICD-10) Social History Smoking status: Current every day smoker Meds Home Medications and Allergies Home Medications ?Medication ?Instructions ?Recorded ?Confirmed ?Type levothyroxine 175 mcg capsule 175 mcg PO DAILY 09/30/23 12/30/23 History metoprolol succinate 25 mg 25 mg PO DAILY 09/30/23 12/30/23 History tablet,extended release 24 hr Allergies Allergy/AdvReac Type Severity Reaction Status Date / Time No Known Drug Allergies Allergy Verified 12/16/23 07:26 Exam Constitutional Documenting provider has reviewed patient's vital signs: yes Common normals: no apparent distress, oriented x3, healthy appearing, alert and well nourished General appearance: cooperative HENMT Common normals: normocephalic, hearing grossly normal bilaterally and moist oral mucous membranes Head and scalp: normocephalic Eye Common normals: PERRL Pupil: PERRL Neck & C-Spine Common normals: full ROM General: normal visual inspection Cervical spine: cervical ROM normal and paracervical muscle tenderness Other: tirgger points noted in left splenius capitus, levator scapulae, and trapezius Chest Common normals: inspection of chest normal Respiratory Common normals: normal respiratory effort, no retractions and no use of accessory muscles Neuro Common normals: oriented x3, CN's II-XII intact bilaterally, moves all extremities, no focal motor deficits, no sensory deficits noted and deep tendon reflexes 2+ bilaterally Sensorium/orientation: alert Motor exam: strength 5/5 throughout and no movement abnormalities noted Psych Common normals: mental status grossly normal, thought process normal, cooperative, affect normal, speech normal and activity/motor behavior normal Speech: normal speech Thought process: normal thought process Results Additional Findings Additional findings: If on a controlled substance or opioids, I have checked an [place]AR[place] report on this patient and there are no aberrancies noted in the prescribing history.??If on a controlled substance or opioid a drug screen was completed and reviewed within the last year, and if there has not been a drug screen completed we ordered one today to monitor higher risk, state monitored pain medication use. As part of providing excellent, safe, comprehensive care, the following was completed at our patient's visit: 1. A medication reconciliation and review to ensure accurate knowledge of current/active medications, including asking our patients to inform us about any [id number] medications or herbal remedies/nutritional supplements/alternative remedies. 2. A review to specifically ensure our patients have had annual screening for screening for depression, screening for tobacco use, and screening for unhealthy alcohol use. For concerning screenings had a discussion with the patient, provided patient education, and recommended follow-up with primary care provider when appropriate. If patient noted with a risk of falling, they received education on strength, gait, and balance training to prevent future risk of falling. Assessment and Plan Assessment and Plan (1) Cervical spondylosis: (2) Myalgia, other site: Plan encouraged stretching, ice, heat and continuation of topical icy hot start baclofen 5-10mg BID PRN pain/spasms encouraged tylenol and NSAIDs discussed left paracervical TPI injection, can call to schedule f/u PRN
== END 2024-01-29 07:44 | disposition home or self-care (01) ==
LOC: PM 07:43
PROVIDERS: PCP Family Medicine; Visit Provider Nurse Practitioner
DX: M47.812 Spondylosis without myelopathy or radiculopathy, cervical region (principal); M79.10 Myalgia, unspecified site
CPT/HCPCS: G0463

== ENCOUNTER 2024-02-24 14:53 | Outpatient (OUT) | payer OTHER, SELFPAY ==
--- NOTE | 2024-02-24 16:01 | PM.CN ---
Consult Note: HPI Data of Consult Patient: known to practice within the last 3 years Consult date: 02/24/24 Requesting Physician: Dominique Vo MD Primary Care Provider: AMIE WANG Consult Narrative Reason for consult: left neck pain, shoulder pain Narrative: 53yom who presents for assessment. continues to have significant left neck and shoulder pain. imaging shows multilevel degenerative changes, but no advanced imaging available. multiple trigger points expressed on palpation. has continued in a series of provider directed home exercises >6 weeks, without benefit. uses otc pain meds. denies adverse med side effects. cc:: CC: Dominique Vo MD Review of Systems ROS Status of ROS 10 or more systems reviewed and unremarkable except as noted in history and below [facility] Medical History Diverticulitis ?K57.92 - Diverticulitis of intestine, part unspecified, without perforation or abscess without bleeding (ICD-10) Surgical History H/O thyroidectomy ?E89.0 - Postprocedural hypothyroidism (ICD-10) Social History Smoking status: Current every day smoker Meds Home Medications and Allergies Home Medications ?Medication ?Instructions ?Recorded ?Confirmed ?Type levothyroxine 175 mcg capsule 175 mcg PO DAILY 09/30/23 12/30/23 History metoprolol succinate 25 mg 25 mg PO DAILY 09/30/23 12/30/23 History tablet,extended release 24 hr Allergies Allergy/AdvReac Type Severity Reaction Status Date / Time No Known Drug Allergies Allergy Verified 12/16/23 07:26 Exam Narrative Exam Narrative: Psych-alert and oriented x 3.? Attentive and appropriate, constitutionally normal, displays normal mood and affect per situation.? There are no obvious deficits in memory, reasoning, or intellect.? Skin-no obvious rashes, bruising, or erythema noted to the patient's area of pain. Extremities-upper extremities are warm with minimal edema and palpable pulses. Cervical- tenderness to palpation noted in the cervical spine and paraspinal musculature.?Multiple trigger points expressed on palpation. Pain is elicited with extension, and lateral rotation of the cervical spine.? Range of motion is slightly diminished due to pain. Coordination remains intact.? Gait remains non-antalgic. Assessment and Plan Assessment and Plan (1) Cervical spondylosis: (2) Myalgia, other site: (3) Cervical stenosis of spine: Plan 53yom who presents for assessment. continues to have pain throughout left neck and shoulder area. given symptoms and imaging findings, will have him undergo cervical mri without contrast. he is in agreement. in terms of myofascial pain, will proceed with trigger point injections. medications reviewed, no changes. follow up after imaging. Procedure: Left splenius capitis, sternocleidomastoid, trapezius trigger point injections Medications: Bupivacaine 0.25% 8cc, kenalog 80mg I explained the details of the procedure to the patient including the risks, benefits, and alternatives.? We had an informed discussion.? The patient verbalized understanding and signed the consent form.? All questions were answered appropriately.? A time-out was performed.? After obtaining a comfortable seated position, the skin overlying the left paracervical region was prepped with alcohol 3 times. The needle was inserted in a sterile manner through the skin towards the palpated trigger point areas. The contents of the syringe were gently injected without any resistance 1cc at a time into the appropriate trigger point.? The needle was removed and pressure was applied at the injection site to decrease the incidence of ecchymosis and hematoma formation.? A sterile bandage was applied. The patient tolerated the procedure well.
== END 2024-02-24 14:54 | disposition home or self-care (01) ==
PROVIDERS: PCP Family Medicine; Visit Provider Anesthesiology
DX: M47.812 Spondylosis without myelopathy or radiculopathy, cervical region (principal); M79.18 Myalgia, other site; M48.02 Spinal stenosis, cervical region
CPT/HCPCS: 20553; J0665; J3301

== ENCOUNTER 2024-05-18 14:11 | Outpatient (OUT) | payer OTHER, SELFPAY ==
--- NOTE | 2024-05-18 15:58 | PM.CN ---
Consult Note: HPI Data of Consult Patient: known to practice within the last 3 years Consult date: 05/18/24 Requesting Physician: Dominique Vo MD Primary Care Provider: AMIE WANG Consult Narrative Reason for consult: left neck pain Narrative: 53yom who presents for assessment. worsening left neck pain, previously relieved with cervical trigger point injections. interested in repeating. imaging shows multilevel spondylosis. uses otc meds as needed. cc:: CC: Dominique Vo MD Review of Systems ROS Status of ROS 10 or more systems reviewed and unremarkable except as noted in history and below [facility] Medical History Diverticulitis ?K57.92 - Diverticulitis of intestine, part unspecified, without perforation or abscess without bleeding (ICD-10) Surgical History H/O thyroidectomy ?E89.0 - Postprocedural hypothyroidism (ICD-10) Social History Smoking status: Current every day smoker Meds Home Medications and Allergies Home Medications ?Medication ?Instructions ?Recorded ?Confirmed ?Type levothyroxine 175 mcg capsule 175 mcg PO DAILY 09/30/23 12/30/23 History metoprolol succinate 25 mg 25 mg PO DAILY 09/30/23 12/30/23 History tablet,extended release 24 hr Allergies Allergy/AdvReac Type Severity Reaction Status Date / Time No Known Drug Allergies Allergy Verified 12/16/23 07:26 Exam Narrative Exam Narrative: Psych-alert and oriented x 3.? Attentive and appropriate, constitutionally normal, displays normal mood and affect per situation.? There are no obvious deficits in memory, reasoning, or intellect.? Skin-no obvious rashes, bruising, or erythema noted to the patient's area of pain. Extremities-upper extremities are warm with minimal edema and palpable pulses. Cervical- tenderness to palpation noted in the cervical spine and paraspinal musculature.?Multiple trigger points expressed on left side. Pain is elicited with extension, and lateral rotation of the cervical spine.? Range of motion is slightly diminished due to pain. Coordination remains intact.? Gait remains non-antalgic. Assessment and Plan Assessment and Plan (1) Myalgia, other site: (2) Cervical stenosis of spine: (3) Cervical spondylosis: Plan 53yom who presents for assessment. failed conservative measures, as noted. imaging reviewed, as noted. given symptoms and imaging, coupled with previous relief, prudent to repeat left paracervical trigger point injections. he is in agreement. meds reviewed, no changes. follow up after procedure. Procedure: Left splenius capitis, sternocleidomastoid, trapezius trigger point injections Medications: Bupivacaine 0.25% 4cc, kenalog 40mg I explained the details of the procedure to the patient including the risks, benefits, and alternatives.? We had an informed discussion.? The patient verbalized understanding and signed the consent form.? All questions were answered appropriately.? A time-out was performed.? After obtaining a comfortable seated position, the skin overlying the left paracervical region was prepped with alcohol 3 times. The needle was inserted in a sterile manner through the skin towards the palpated trigger point areas. The contents of the syringe were gently injected without any resistance 1cc at a time into the appropriate trigger point.? The needle was removed and pressure was applied at the injection site to decrease the incidence of ecchymosis and hematoma formation.? A sterile bandage was applied. The patient tolerated the procedure well.
== END 2024-05-18 14:12 | disposition home or self-care (01) ==
LOC: PM 14:12
PROVIDERS: PCP Family Medicine; Visit Provider Anesthesiology
DX: M79.18 Myalgia, other site (principal); M48.02 Spinal stenosis, cervical region; M47.812 Spondylosis without myelopathy or radiculopathy, cervical region
CPT/HCPCS: 20552; J0665; J3301

== ENCOUNTER 2024-05-27 07:20 | Outpatient (OUT) | payer OTHER, SELFPAY ==
--- NOTE | 2024-05-27 07:32 | MR_ITS ---
[address] [address] Patient Name: COLEEN SCHAFER MRN: [facility]:[id number] date: 1970 Sex: M Assigned Patient Location: MRI Current Patient Location: MRI Accession/Order Number: [id number] Exam Date: 05/27/2024 07:55 Report Date: 05/27/2024 14:18 At the request of: GISELA YU Procedure: MR cervical spine wo con EXAMINATION: MR cervical spine wo con HISTORY: Cervical Stenosis ; chronic neck pain radiating into hands COMPARISON: No relevant comparison available. TECHNIQUE: A variety of imaging planes and parameters were utilized for visualization of suspected pathology without and/or with intravenous Dotarem contrast based on examination type. FINDINGS: CRANIOCERVICAL AREA: Normal foramen magnum with no Chiari malformation. PARASPINAL AREA: Prominent mucocele versus mucous retention cyst within left maxillary sinus. BONES: Partial developmental osseous fusion of C3-4-5-6 vertebral bodies and posterior elements. CORD: Normal caliber, contour, and signal intensity. CERVICAL DISC LEVELS: C2-C3: Mild central canal narrowing secondary to mild diffuse disc bulging. No significant central canal narrowing. C3-C4: Moderate-marked foramen narrowing bilaterally. No significant central canal narrowing. C4-C5: Moderate-marked foramen narrowing bilaterally. No significant central canal narrowing. C5-C6: Moderate-marked foramen narrowing bilaterally. No significant central canal narrowing. C6-C7: Moderate-marked foramen narrowing bilaterally. Moderate central canal narrowing. Mild diffuse disc bulging without disc height reduction. Mild degenerative facet arthropathy. C7-T1:. Mild foramen narrowing bilaterally. Mild central canal narrowing. Mild diffuse disc bulging and facet arthropathy. No significant disc height reduction. MR/MR cervical spine wo con IMPRESSION: 1. Developmental partial osseous fusion of C3-4-5-6 vertebral bodies and posterior elements resulting in moderate-marked foramen narrowing at these levels. No significant central canal narrowing. 2. C6-7 moderate-marked foramen narrowing and moderate central canal narrowing secondary to moderate degenerative disc disease and facet arthropathy. Electronically authenticated by: SCOUT BEARDEN Date: 05/27/2024 14:18
== END 2024-05-27 07:21 | disposition home or self-care (01) ==
LOC: MRI 07:22
PROVIDERS: PCP Family Medicine; Visit Provider Anesthesiology
DX: M48.02 Spinal stenosis, cervical region (principal); M50.30 Other cervical disc degeneration, unspecified cervical region
CPT/HCPCS: 72141

== ENCOUNTER 2024-07-15 07:42 | Outpatient (OUT) | payer OTHER, SELFPAY ==
--- OUTSIDE RECORDS SUMMARY | 2024-07-15 07:48 | XMS_ITS | CCD ---
Author Organization [facility] CliniSyms Care Team Providers Care Medical Biller Name Role Phone PEREZ ., DR ANA [...] ROSADO ., DR ANA Singletary Consulting Unavailable Lory Akers Unavailable MD Lory Akers Attending Provider MD Junior Sinclair Primary Care Provider Lory Akers Attending Unavailable Lory Akers Admitting Unavailable Junior Sinclair Primary Care Unavailable MD Junior Sinclair Attending Unavailable Génesis Voss Attending Unavailable MD Junior Sinclair Attending Unavailable MD Junior Sinclair Attending Unavailable Génesis Voss Attending Unavailable MD Junior Sinclair Attending Unavailable MD Junior Sinclair Attending Unavailable Sarah Beard Referring Unavaila Sarah Peña Attending Unavaila isabell NONE, XXXX Admitting Unavailable Sarah Beard Admitting Unavaila ble Sarah Beard Talal Referring Unavaila ble Sarah Beard Attending UnavailMD Junior Britton Admitting Unavailable MD Junior Sinclair Attending Unavailable MD Junior Sinclair Attending Unavailable MD Junior Sinclair Admitting Unavailable Sarah Beard Attending MD Junior Hutchins Referring Unavailable Sarah Beard Karl Attending Unavaila Junior Hernandez Attending Unavailable Junior Sinclair Admitting Unavailable Junior Sinclair Attending Unavailable Gihemanth PRABHAKAR, Dominique Laughlin Attending Unavailable Giedraitis , Dominique Laughlin Attending Unavailable Gieditis , Anddonna Laughlin Attending Unavailable Gimarshallitis , Dominique Laughlin Attending Unavailable Gihemanth PRABHAKAR, Dominique Laughlin Attending Unavailable Gihemanth PRABHAKAR, Anddonna Laughlin Attending Unavailable Junior Sinclair Attending Unavailable Junior Sinclair Admitting Unavailable Junior Sinclair Attending Unavailable Junior Sinclair Admitting Unavailable Junior Sinclair Attending Unavailable Junior Sinclair Attending Unavailable Allergies Allergy Classification Reported Allergen(s) Allergy Type Date of Onset Reaction(s) Facility (4 sources) OXcarbazepine; Translations: [OXcarbazepine] Drug Allergy [facility] Repository (4 sources) Pollen; Translations: [Pollen] Propensity to adverse reactions (disorder) [facility] Repository (4 sources) Sertraline; Translations: [Zoloft] Drug Allergy [facility] Repository Medications Current Medications Medication Drug Class(es) Dates Sig (Normalized) Sig (Original) ibuprofen 800 mg oral tablet (1 source) Nonsteroidal Anti-inflammatory Drug Start: 01-10-2019 take 800 mg by mouth three times daily Ibuprofen Active 800 MG PO Three times daily 20 January 10, 2019 12:00am levothyroxine sodium 0.175 [...] Results Test Name Value Interpretation Reference Range [facility] 06-09-2024 Anion gap [Moles/Vol] 9 mmol/L Normal 6-16 [facility] Comment on above: Performed By: #### 2 [id number] #### [facility] Laboratory [address] [place] [address] Calcium [Mass/Vol] 9.3 mg/dL Normal 8.9-11.1 [facility] Comment on above: Performed By: #### 2 [id number] #### [facility] [address] [place] [address] Chloride [Moles/Vol] 95 mmol/L Low 101-111 [facility] Comment on above: Performed By: #### 2 [id number] #### [facility] [address] [place] [address] CO2 [Moles/Vol] 33 mmol/L High 21-31 [facility] Comment on above: Performed By: #### 2 [id number] #### [facility] [address] [place] [address] Creatinine [Mass/Vol] 0.7 mg/dL Normal 0.5-1.3 [facility] Comment on above: Performed By: #### 2 [id number] #### [facility] [address] [place] [address] Glucose [Mass/Vol] 138 mg/dL Normal 55-199 [facility] Comment on above: Performed By: #### 2 [id number] #### [facility] [address] [place] [address] Potassium [Moles/Vol] 4.1 mmol/L Normal 3.5-5.3 [facility] Comment on above: Performed By: #### 2 [id number] #### [facility] [address] [place] [address] Sodium [Moles/Vol] 133 mmol/L Low 135-145 [facility] Comment on above: Performed By: #### 2 [id number] #### [facility] [address] [place] [address] Urea nitrogen [Mass/Vol] 6 mg/dL Normal 5-21 [facility] Comment on above: Performed By: #### 2 [id number] #### [facility] [address] [place] [address] Urea nitrogen/Creatinin e [Mass ratio] 9 No Units Low 10-20 [facility] Comment on above: Performed By: #### 2 [id number] #### [facility] [address] [place] [address] eGFRon 06-09-2024 eGFR 109 mL/min/1.73 m2 Normal >=59 [facility] Comment on above: Performed By: #### 1 [id number] #### [facility] [address] [place] [address] eGFRon 05-14-2024 eGFR 114 mL/min/1.73 m2 Normal >=59 [facility] Comment on above: Performed By: #### 1 [id number] #### [facility] [address] [place] [address] CMPon 04-07-2024 Albumin [Mass/Vol] 4.6 g/dL Normal 3.3-5.0 [facility] Comment on above: Performed By: #### 2 [id number] #### [facility] [address] [place] [address] Albumin/Globulin (S) [Mass conc ratio] 1.9 Normal 1.1-2.2 [facility] Comment on above: Performed By: #### 2 [id number] #### [facility] [address] [place] [address] ALP [Catalytic activity/Vol] 47 Int._Unit/L Normal 21-98 [facility] Comment on above: Performed By: #### 2 617459 #### [facility] [address] [place] [address] ALT No additional P-5'-P [Catalytic activity/Vol] 80 Int._Unit/L High 6-46 [facility] Comment on above: Performed By: #### 2 492051 #### [facility] [address] [place] [address] Anion gap [Moles/Vol] 12 mmol/L Normal 6-16 [facility] Comment on above: Performed By: #### 2 [id number] #### [facility] [address] [place] [address] AST [Catalytic activity/Vol] 76 Int._Unit/L High 5-43 [facility] Comment on above: Performed By: #### 2 362850 #### [facility] [address] [place] [address] Bilirubin [Mass/Vol] 0.6 mg/dL Normal 0.0-1.1 [facility] Comment on above: Performed By: #### 2 439506 #### [facility] [address] [place] [address] Calcium [Mass/Vol] 9.1 mg/dL Normal 8.9-11.1 [facility] Comment on above: Performed By: #### 2 [id number] #### [facility] [address] [place] [address] Chloride [Moles/Vol] 95 mmol/L Low 101-111 [facility] Comment on above: Performed By: #### 2 760952 #### [facility] [address] [place] [address] CO2 [Moles/Vol] 28 mmol/L Normal 21-31 [facility] Comment on above: Performed By: #### 2 692076 #### [facility] [address] [place] [address] Creatinine [Mass/Vol] 0.7 mg/dL Normal 0.5-1.3 [facility] Comment on above: Performed By: #### 2 841652 #### [facility] [address] [place] [address] Globulin (S) [Mass/Vol] 2.4 g/dL Normal 1.4-4.0 [facility] Comment on above: Performed By: #### 2 649464 #### [facility] [address] [place] [address] Glucose [Mass/Vol] 88 mg/dL Normal 55-199 [facility] Comment on above: Performed By: #### 2 640147 #### [facility] [address] [place] [address] Potassium [Moles/Vol] 4.7 mmol/L Normal 3.5-5.3 [facility] Comment on above: Performed By: #### 2 198821 #### [facility] [address] [place] [address] Protein [Mass/Vol] 7.0 g/dL Normal 6.0-7.8 [facility] Comment on above: Performed By: #### 2 934159 #### [facility] [address] [place] [address] Sodium [Moles/Vol] 130 mmol/L Low 135-145 [facility] Comment on above: Performed By: #### 2 [id number] #### [facility] [address] [place] [address] Urea nitrogen [Mass/Vol] 6 mg/dL Normal 5-21 [facility] Comment on above: Performed By: #### 2 789081 #### [facility] [address] [place] [address] Urea nitrogen/Creatinin e [Mass ratio] 9 No Units Low 10-20 [facility] Comment on above: Performed By: #### 2 216392 #### [facility] [address] [place] [address] TSH With T4fr Reflexon 04-07 TSH Qn 0.81 m[IU]/L Normal 0.34-5.60 [facility] Comment on above: Performed By: #### 1 [id number] #### [facility] [address] [place] [address] eGFRon 04-07-2024 eGFR 109 mL/min/1.73 m2 Normal >=59 [facility] Comment on above: Performed By: #### 1 [id number] #### [facility] [address] [place] [address] Family Medicine Office/Clini c Noteon 04-06-2024 Family Medicine Office/Clinic Note Family Medicine Office/Clinic Note HPI Staff Adarsh is a 53 year old male presenting for follow up htn, thyroid Patient is here for follow up on hypertension. How often are you checking your blood pressure? Couple times a week What are your average readings? normal at home _ Yearly BMP: 05/07/23 Patient is here for follow up on Thyroid Disease. Do you have any of the following symptoms? Change in energy level? no Weight change? no Heat/cold intolerance? no Hair/skin/nail changes? no Change in bowels? no Last TSH: TSH: 1.89 mcIU/mL (05/07/23 15:19:00) questions/concerns: would like a kenalog shot for allergies neck pain, had the ablation injection done and it only lasted about a month Needs both meds refilled 90 day supplies History of Present Illness The patient is a 53-year-old male presenting with neck pain. This pain is described as persistent and mainly located on the left side, causing headaches. The patient has a history of undergoing radiofrequency ablations which alleviated symptoms for approximately a month before the pain returned. The patient is concerned about the frequency and the painful nature of these procedures and expresses reluctance to continue them frequently. The pain has a steady intensity at a level of 7 on a scale of 10. The patient reports the neck pain to be bone-related and denies any significant relief from Kenalog injections, which have been administered primarily for seasonal allergies. There is a history of arthritis associated with the neck pain. The patient has been managing hypertension, stating that blood pressure readings tend to be higher in office settings despite being normal at home. The patient intends to bring the home blood pressure cuff for validation during a subsequent visit. 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 There is an additional concern of checking thyroid function, as it has been requested in previous visits but remains unassessed. Review of Systems PHQ Score Initial Depression Screen Score: 2 SCORE Physical Exam Vitals & Measurements T: 37.1 ???C(Oral) HR: 94(Peripheral) RR: 16 BP: 150/74 SpO2: 98% HT: 72 in HT: 182 cm WT: 93.4 kg WT: 205.48 lb BMI: 28.2 General: alert, no acute distress ENMT: oral mucosa moist Cardiovascular: Regular rate and rhythm, normal peripheral perfusion Respiratory: Lungs clear to auscultation, respirations non labored Extremities: no deformity, no trauma Neurological: oriented x 4, level of consciousness appropriate for age, CN II-XII intact, motor strength equal & normal bilaterally, speech normal Abdomen: Soft, Non-tender, Non-distended, + Bowel sounds Assessment/Plan 1. Thyroid disease (E07.9: Disorder of thyroid, unspecified) Thyroid function tests are pending evaluation to address potential endocrine issues which have not been assessed despite previous recommendations. Ordered: Comprehensive Metabolic Panel TSH With T4fr Reflex 2. Primary hypertension (I10: Essential (primary) hypertension) Hypertension management includes verifying the accuracy of home blood pressure monitoring after the patient brings their device to the clinic. Further evaluation of stressors at work may also be warranted. Ordered: Comprehensive Metabolic Panel TSH With T4fr Reflex 3. Cervical radiculopathy, chronic (M54.12: Radiculopathy, cervical region) The patient should refrain from frequent radiofrequency ablation due to discomfort with the procedure. A referral to a campus security director is needed to explore alternative treatments for arthritis-related neck pain. Ordered: Comprehensive Metabolic Panel TSH With T4fr Reflex 4. Seasonal allergies (J30.2: Other seasonal allergic rhinitis) Kenalog injections to be administered today as planned for chronic management of seasonal allergies, with monitoring of any secondary benefit in pain relief. Ordered: Comprehensive Metabolic Panel TSH With T4fr Reflex 5. Anxiety (F41.9: Anxiety disorder, unspecified) The anxiety disorder remains a concern requiring continual monitoring. No specific changes to management were discussed during this visit. Ordered: Comprehensive Metabolic Panel TSH With T4fr Reflex Orders: levothyroxine, 175 mcg = 1 tab(s), Oral, Daily, # 90 tab(s), Refills(s) 0, Pharmacy: [facility]/pharmacy #[id number], 182, cm, 04/06/24 16:26:00 EDT, Height/Length Dosing, 93.4, kg, 04/06/24 16:26:00 EDT, Weight Dosing metoprolol, 25 mg = 1 tab(s), Oral, Daily, # 90 tab(s), Refills(s) 0, Pharmacy: [facility]/pharmacy #[id number], 182, cm, 04/06/24 16:26:00 EDT, Height/Length Dosing, 93.4, kg, 04/06/24 16:26:00 EDT, Weight Dosing Follow-up No qualifying data available Patient Education Hypertension, Adult Problem List/Past Medical History Ongoing Ankylosis Anxiety Cervical radiculopathy, chronic Chronic GERD Diverticulitis Fatty liver Primary hypertension (more content not included)... Normal [facility] Comment on above: Result Comment: Elec tronically Signed By: Yahir PRABHAKAR, Junior Flores.niles\\Date and Time Signed: 04/06/24 16:42 EDT Reminderson 01-17-2024 Reminders Reminders From: Cipriano Bedolla To: [facility] - Reminders/Recalls; Sent: 11/14/2023 17:20:52 EDT Show up: 10/08/2026 17:20:00 EDT Subject: Ambulatory Reminder Due Date/Time: 10/31/2026 17:20:00 EDT Reminder/Recall Repeat colonoscopy in 3 years(2026) due to tubular adenoma > 10 mm as well as EGD repeat at the same time per Dr. Beard. Pal[place] [facility] Ambulatory Visit Summaryon 0 01-16-2024 Ambulatory Visit Summary Ambulatory Visit Summary ADARSH SCHAFER :1970 Visit Date:01/16/2024 Ambulatory Visit Instructions Your Diagnosis Fatty liver Chronic GERD Colon polyps Your Care Team Attending Physician - Chirag PRABHAKAR, Sarah Barajas Primary Care Physician - Yahir PRABHAKAR, Junior Salcedo This Is Your Medications List omeprazole (omeprazole 40 mg Cap-DR) Contact prescribing physician if questions or concerns [...] When Instructions New omeprazole (omeprazole 40 mg Cap-DR) 1 Capsules By Mouth Every day Refills: 3 Pickup at [facility]/pharmacy #[id number] Unchanged levothyroxine (levothyroxine 175 mcg (0.175 mg) Tab) 1 Tablets By Mouth Every day Contact prescribing physician if questions or concerns Unchanged metoprolol (metoprolol 25 mg ER Tab) 1 Tablets By Mouth Every day Contact prescribing physician if questions or concerns Pharmacy Information [id number]: [address], [place] [id number] [phone] Allergies OXcarbazepine (Unknown) Pollen (Unknown) Zoloft (Unknown) [...] choosing us for your care. Normal [facility] Gastroenterology Office/Clin ic Noteon 01-16-2024 Gastroenterology Office/Clinic [...] Daily, # 90 cap(s), Refills(s) 3, Pharmacy: [facility]/pharmacy #[id number], 182, cm, 01/16/24 14:49:00 EDT, [...] History Hypertension: Father. (more content not included)... [facility] Comment on above: Result Comment: Elec tronically Signed By: Chirag PRABHAKAR, Sarah Barajas\\.br\\Date and Time Signed: 01/16/24 15:43 EDT Consultation Noteon 11-26-19 Consultation Note [id number]#1.00TIFF [facility] Consultation Noteon 11-11-19 Consultation Note [id number]#1.00TIFF [facility] Consultation Note [id number]#1.00TIFF [facility] Operative Reporton Operative Report [id number]#1.00TIFF [facility] Postoperative Documentson Postoperative Documents [id number]#1.00TIFF [facility] IntraOperative Documentson 0 11-06-2023 IntraOperative Documents [id number]#1.00TIFF Normal [facility] Consenton 11-05-2023 Consent [id number]#1.00TIFF Normal [facility] Discharge Instructionson Discharge Instructions [id number]#1.00TIFF Normal [facility] Consent for Treatmenton 10-09 Consent for Treatment [id number]#1.00TIFF Normal [facility] Discharge Instructionson Discharge Instructions ADARSH SCHAFER Pal [...] call for follow up Where: [facility], [facility] [address] [address] [phone] Business (1) Medications What How Much When [...] activities are safe for you. ? Take otcn-jjg-mqavakm and prescription medicines only as told by [...] provider. Document Revised: 09/05/2022 Document Reviewed: 09/05/2022 [employer] Patient Education ? 2022 [employer] Sinclair's Esophagus (more content not included)... Normal [facility] Comment on above: Result Comment: Elec tronically Signed By: Sherice WEST, Tanya\\.br\\Date and Time Signed: 11/01/23 10:36 EDT Endoscopic [...] history and physical Documented on chart. Thyroidectomy ([id number]) on 02/13/2018 at 47 Years. Entire wisdom tooth ([id number]). Diverticulitis surgery (772850870). tongue and throat biopsy.. Past Medical History No active or resolved past medical history items have been selected or recorded.. Family History Hypertension Father . Procedure History Thyroidectomy ([id number]) on 02/13/2018 at 47 Years. Entire wisdom tooth (091973884). Diverticulitis surgery ([id number]). tongue and throat biopsy.. Colorectal neoplasm risk [...] Daily, # 90 EA, Refills(s) 1, [id number], cm, 08/29/23 7:21:00 EDT, Height/Length Dosing, 94.2, kg, 08/29/23 7:21:00 EDT, Weight Dosing metoprolol 25 mg ER Tab: 25 mg = 1 tab(s), Oral, Daily, # 90 tab(s), Refills(s) 1, [id number] 158, cm, 08/29/23 7:21:00 EDT, Height/Length [...] Normal examined terminal ileum Images Procedure images: Rec1_hd_video_2023__T09_ 29_13_910.jpg Rec1_hd_video__T09_ 28_56_342.jpg Rec1_hd_video__T09_ 26_04_242.jpg Rec1_hd_video__T09_ 24_43_972.jpg Rec1_hd_video__T09_ 24_16_317.jpg Rec1_hd_video__T09_ 24_01_066.jpg Rec1_hd_video_T09_ 19_21_810.jpg Rec1_hd_video_T09_ 19_18_072.jpg Rec1_hd_video__T09_ 17_56_036.jpg Rec1_hd_video_2023__T09_ 16_52_673.jpg Rec1_hd_video_2023__24T09_ 16_47_723.jpg Rec1_hd_video_2023_05_24T09_ 14_18_188.jpg Rec1_hd_video__ _53_944.jpg Rec1_hd_video__ _36_204.jpg Rec1_hd_video_09_ _29_223.jpg Rec1_hd_video_09_ _21_998.jpg Rec1_hd_video_09_ 10_57_345.jpg Rec1_hd_video__ _45_043.jpg Rec1_hd_video__ _21_315.jpg Rec1_hd_video__ _07_279.jpg . Post-Procedure Complications: non (more content not included)... Normal [facility] Comment on above: Result Comment: Elec tronically Signed By: Sarah Beard MD\\.br\\Date and Time Signed: 11/01/23 10:25 EDT Other Comment: Sallie temple Attachment - attachment storage system not supported [id number] Can be viewed in source systemUt[facility]guard[facility] Attachment - attachment storage system not supported [id number] Can be [facility] Attachment - attachment storage system not supported [id number] Can be viewed in [facility] Attachment - attachment storage system not supported [id number] Can be viewed in [facility] Attachment - attachment storage system not supported [id number] Can be viewed in [facility] Attachment - attachment storage system not supported [id number] Can be viewed in source systemMissguard[facility] Attachment - attachment storage system not supported [id number] Can be viewed in source [facility] Attachment - attachment storage system not supported [id number] Can be viewed in source [facility] Attachment - attachment storage system not supported [id number] Can be viewed in source systemMissing Attachment - attachment storage system not supported [id number] Can be viewed in source systemMissing Attachment - attachment storage system not supported [id number] Can be viewed in source systemMissing Attachment - attachment storage system not supported [id number] Can be viewed in source systemMissing Attachment - attachment storage system not supported [id number] Can be viewed in source systemMissing Attachment - attachment storage system not supported [id number] Can be viewed in source systemMissing Attachment - attachment storage system not supported [id number] Can be viewed in source systemMissing Attachment - attachment storage system not supported [id number] Can be viewed in source systemMissing Attachment - attachment storage system not supported [id number] Can be viewed in source systemMissing Attachment - attachment storage system not supported [id number] Can be viewed in source systemMissing Attachment - attachment storage system not supported [id number] Can be viewed in source systemMissing Attachment - attachment storage system not supported [id number] Can be viewed in source system Endoscopic [...] 4. Normal examined duodenum Images Procedure images: Rec1_hd_video__T09_ 01_01_559.jpg Rec1_hd_video_2023_T08_ 58_32_819.jpg Rec1_hd_video_T08_ 56_42_191.jpg Rec1_hd_video_2023__T08_ 56_22_059.jpg Rec1_hd_video_2023__T08_ 54_53_977.jpg Rec1_hd_video_2023__T08_ 54_47_322.jpg [...] GI clinic in 1-2 after discharge Normal [facility] Comment on above: Result Comment: Elec tronically Signed By: Chirag PRABHAKAR, Sarah Barajas\\.br\\Date and Time Signed: 11/01/23 09:57 EDT Other Comment: Sallie temple Attachment - attachment storage system not supported [id number] Can be viewed in source systemMissing Attachment - attachment storage system not supported [id number] Can be viewed in source systemMissing Attachment - attachment storage system not supported [id number] Can be viewed in source systemMissing Attachment - attachment storage system not supported [id number] Can be viewed in source systemMissing Attachment - attachment storage system not supported [id number] Can be viewed in source systemMissing Attachment - attachment storage system not supported [id number] Can be viewed in source systemMissing Attachment - attachment storage system not supported [id number] Can be viewed in source systemMissing Attachment - attachment storage system not supported [id number] Can be viewed in source system Inpatient Patient Summaryon 11-01-2023 Inpatient Patient Summary [address] [address] [facility] Clinical Discharge Instructions PERSON INFORMATION Name: ADARSH SCHAFER [facility]#:[id number] PHYSICIANS Admitting Physician: Sarah Beard MD Attending Physician: Sarah Beard MD PCP: Junior Sinclair MD Discharge Diagnosis: Chronic GERD; Colon cancer screening Comment: PATIENT EDUCATION INFORMATION Instructions: Upper Endoscopy, Adult, Care After; Sinclair's Esophagus; Gastritis, Adult; Hiatal Hernia; Colonoscopy, Care After Surgery Salam (CUSTOM); Colon Polyps Medication Leaflets: Follow up: With: Address: When: Sarah Beard [address] [place] [address], [address], [place] [phone] Business (1) Comments: office will call for follow up Type Location Start [facility] Surgery [facility] Surgical Services 11/15/2023 2:00 PM 11/15/2023 2:20 PM Confirmed MEDICATION LIST Medications to Continue with No Changes Other Medications levothyroxine (levothyroxine 175 mcg (0.175 mg) Tab) 1 Tablets By Mouth every day. Refills: 1. metoprolol (metoprolol 25 mg ER Tab) 1 Tablets By Mouth every day. Refills: 1. Comment: Normal [facility] Main OR Intraoperative Recor don 11-01-2023 Main OR Intraoperative Record IntraOp Document Type FT Summary Primary Physician: Sarah Beard MD Finalized Date/Time: 11/01/23 14:12:04 Pt. Name: ADARSH SCHAFER Pal /Sex: 1970 Male Med Rec #: [id number] Physician: Sarah Beard MD Financial #: [id number] Pt. Type: O Room/Bed: / Admit/Disch: 11/01/23 [...] Entry 2 Entry 3 Case Attendee Pearl [facility], Mook Brunner RN, Jayme Mark Role Performed Anesthesiologist Apartment Assistant Manager - Primary Staff - Other Deputy Probation Officer Time In 11/01/23 09:38:00 11/01/23 09:38:00 11/01/23 [...] Mook Monzon, Given Participants Isai Brunner RN, Jayme Patel, Patricia ADVERTISING COPY WRITER, Chirag Gaston MD, Sarah Barajas Time Out [...] Pre-Care Text (more content not included)... Normal [facility] Main OR PACU I Recordon 10-09 Main OR PACU I Record PACU Phase I Document Type FT Summary Primary Physician: Sarah Beard MD Finalized Date/Time: 11/01/23 11:32:26 Pt. Name: ADARSH SCHAFER D.O.B./Sex: 1970 Male Med Rec #: [id number] Physician: Sarah Beard MD Financial #: [id number] Pt. Type: O Room/Bed: / Admit/Disch: 11/01/23 [...] By: Tanya Smiley RN 11/01/23 11:32 Normal [facility] Main OR Preoperative Recordo n 11-01-2023 Main OR Preoperative Record Holding Area Document Type FT Summary Primary Physician: Sarah Beard MD Finalized Date/Time: 11/01/23 08:39:08 Pt. Name: ADARSH SCHAFER /Sex: 1970 Male Med Rec #: [id number] Physician: Sarah Beard MD Financial #: [id number] Pt. Type: O Room/Bed: / Admit/Disch: 11/01/23 [...] By: Jayla Simons RN 11/01/23 08:39 Normal [facility] Monitor Recordon 11-01-2023 Monitor Record [id number]#1.00TIFF Normal [facility] Monitor Record [id number]#1.00TIFF [facility] Outpatient Surgery Discharge Instructionon 11-01-2023 Outpatient Surgery Discharge Instruction [address] [address] Patient Discharge Instructions PERSON INFORMATION Name: ADARSH SCHAFER Pal Date of : 1970 Current Date: 11/01/2023 [...] up: With: Address: When: Sarah Beard [address] [facility], [address], [address] [address] [phone] Business (1) Comments: office will call for follow up Type Location Start [facility] Surgery [facility] Surgical Services 11/15/2023 2:00 PM 11/15/2023 2:20 PM Confirmed Pharmacy Information: You may receive a survey from [employer] asking you to rate your care experience. Your feedback is important and will help us understand what we do well and how we can improve the quality of care we provide to you, your loved ones and our community. It?s an honor to serve you. Thank you for choosing [facility] HERE ARE THE MEDICATION CHANGES THAT [...] activities are safe for you. ? Take gwwr-prc-kstwdky and prescription medicines only as told by [...] provider. Document Revised: 09/05/2022 Document Reviewed: 09/05/2022 [employer] Patient Education ? 2022 [employer] Sinclair's Esophagus Sinclair's esophagus occurs when the (more content not included)... Normal [facility] Patient Education - Texton 0 11-01-2023 Patient [...] activities are safe for you. ? Take cawd-kzk-kqvuakd and prescription medicines only as told by [...] provider. Document Revised: 09/05/2022 Document Reviewed: 09/05/2022 [employer] Patient Education ? 2022 [employer]. Sinclair's Esophagus Sinclair's esophagus occurs when the [...] symptoms such (more content not included)... Normal [facility] Progress Note-Physicianon Progress Note-Physician Patient: ADARSH SCHAFER [...] Daily, # 90 EA, Refills(s) 1, [id number], cm, 08/29/23 7:21:00 EDT, Height/Length Dosing, 94.2, kg, 08/29/23 7:21:00 EDT, Weight Dosing metoprolol 25 mg ER Tab: 25 mg = 1 tab(s), Oral, Daily, # 90 tab(s), Refills(s) 1, Pharmacy: [facility]/pharmacy #[id number], 158, cm, 08/29/23 7:21:00 EDT, Height/Length Dosing, 94.2, kg, 08/29/23 7:21:00 EDT, Weight Dosing, Home Medications (2) Active levothyroxine 175 mcg (0.175 mg) Tab 175 mcg = 1 tab(s), Oral, Daily metoprolol 25 mg ER Tab 25 mg = 1 tab(s), Oral, Daily Problem list: All Problems Ankylosis / SNOMED CT 651338122 / Confirmed Anxiety / SNOMED CT 72240133 / Confirmed Cervical radiculopathy, chronic / SNOMED CT 980316709 / Confirmed Diverticulitis / SNOMED CT 203107744 / Confirmed Primary hypertension / SNOMED CT 19919420 / Confirmed Psoriasis / SNOMED CT 58118488 / Confirmed Seasonal allergies / SNOMED CT 2406021868 / Confirmed Sinusitis / SNOMED CT 69124871 / Confirmed Steatosis, liver / SNOMED CT 864588484 / Confirmed Thyroid disease / SNOMED CT 41330470 / Confirmed Overactive Thyroid and benign tumor Thyroid mass / SNOMED CT 7812371672 / Confirmed Tinnitus of left ear / SNOMED CT 191664543 / Confirmed TMJ (temporomandibular joint syndrome) / SNOMED CT 92891525 / Confirmed Canceled: Hyperthyroidism / SNOMED CT 05323544 Canceled: Nonalcoholic steatohepatitis (CAGLE) / SNOMED CT 3017040043 Canceled: Otitis media of both ears / SNOMED CT 581031595 Canceled: Tinea cruris / SNOMED CT 0182141322 Physical Examination Vital Signs 11/01/2023 11:05 EDT [...] mmHg mmHg (more content not included)... Normal [facility] Comment on above: Result Comment: Elec tronically Signed By: Samuel Ochoa DO\\.br\\Date and Time Signed: 11/01/23 11:47 EDT Progress [...] Daily, # 90 EA, Refills(s) 1, Pharmacy: [facility]/pharmacy [id number], 158, cm, 08/29/23 7:21:00 EDT, Height/Length Dosing, 94.2, kg, 08/29/23 7:21:00 EDT, Weight Dosing metoprolol 25 mg ER Tab: 25 mg = 1 tab(s), Oral, Daily, # 90 tab(s), Refills(s) 1, Pharmacy: [facility]/pharmacy #[id number], 158, cm, 08/29/23 7:21:00 EDT, [...] list: All Problems Ankylosis / SNOMED CT 235734017 / Confirmed Anxiety / SNOMED CT 97248246 / Confirmed Cervical radiculopathy, chronic / SNOMED CT 154702426 / Confirmed Diverticulitis / SNOMED CT 118763320 / Confirmed Primary hypertension / SNOMED CT 56244544 / Confirmed Psoriasis / SNOMED CT 50735579 / Confirmed Seasonal allergies / SNOMED CT 6045477739 / Confirmed Sinusitis / SNOMED CT 18141819 / Confirmed Steatosis, liver / SNOMED CT 527248539 / Confirmed Thyroid disease / SNOMED CT 00554595 / Confirmed Overactive Thyroid and benign tumor Thyroid mass / SNOMED CT 7233417341 / Confirmed Tinnitus of left ear / SNOMED CT 135474275 / Confirmed TMJ (temporomandibular joint syndrome) / SNOMED CT 98916404 / Confirmed Canceled: Hyperthyroidism / SNOMED CT 45609893 Canceled: Nonalcoholic steatohepatitis (CAGLE) / SNOMED CT 5088966242 Canceled: Otitis media of both ears / SNOMED CT 235357376 Canceled: Tinea cruris / SNOMED CT 3300113191, Active Problems (13) Ankylosis Anxiety Cervical radiculopathy, chronic Diverticulitis Primary hypertension Psoriasis Seasonal allergies Sinusitis Steatosis, liver Thyroid disease Thyroid mass Tinnitus of left ear TMJ (temporomandibular joint syndrome) Histories Past Medical History: No active or resolved past medical history items have been selected or recorded. Family History: Hypertension Father Procedure history: Thyroidectomy (76309144) on 02/13/2018 at 47 Years. Entire wisdom tooth (106024846). Diverticulitis surgery (605854072). tongue and throat biopsy. Social History Social [...] Results revie (more content not included)... Normal [facility] Comment on above: Result Comment: Elec tronically Signed By: Samuel Ochoa DO\\Date and Time Signed: 11/01/23 09:22 EDT Consultation Noteon 10-24-19 Consultation Note [id number]#1.00TIFF [facility] RAD - MISCon 10-07-2023 RAD - MIS [id number]#1.00TIFF [facility] Consultation Noteon 10-01-19 Consultation Note [id number]#1.00TIFF [facility] Patient Letter FTon 2023 Patient Letter [facility] [place] [address] Re: ADARSH SCHAFER Date of : 1970 To Whom It May Concern: Dr Sinclair sent over a referral for Adarsh Schafer (: 68) and this is to verify the referral is to rule out rheumatoid [place] [address] [facility] Ambulatory Visit Summaryon 0 08-29-2023 Ambulatory [...] EDT With: Yahir PRABHAKAR, Junior Salcedo Where: [facility] [place] Invalid Interpretation Code Primary hypertension [facility] Consenton 08-29-2023 Consent [id number]#1.00TIFF Normal [facility] Patient Educationon 08-29-19 24 Patient Education Cardiovascular [...] 1? oz glass (more content not included)... [facility] Physician Referralon 024 Physician Referral [id number]#1.00TIFF [facility] Physician Referral [id number]#1.00TIFF [facility] Ambulatory Visit Summaryon 0 07-10-2023 Ambulatory [...] Appointments Saturday 2:30 PM EDT With: Where: [facility] Surgical Services Saturday. 2023 3:00 PM EDT With: Yahir PRABHAKAR, Junior Salcedo Where: [facility] Family Medicine [place] Normal [facility] Medicine Office/Clini c Noteon 07-10-2023 Family Medicine [...] day(s), # 14 tab(s), Refills(s) 0, Pharmacy: [facility]/pharmacy #[id number], 158, cm, 07/10/23 16:20:00 EST, Height/Length Dosing, 94.6, kg, 07/10/23 16:20:00 EST, Weight Dosing methylPREDNISolone, = 1 packet(s), Oral, As Directed, as directed on package labeling, X 6 day(s), # 21 tab(s), Refills(s) 0, Pharmacy: [facility]/pharmacy #[id number], 158, cm, 07/10/23 16:20:00 EST, Height/Length Dosing, 94.6, kg, 07/10/23 16:20:00 EST, Weight Dosing 2. Otitis media of both ears (H66.93: Otitis media, unspecified, bilateral) MARIBETH TM red as well as canals left TM bulging with clear fluid Ordered: amoxicillin-clavulanate, = 1 tab(s), Oral, q12hr, X 7 day(s), # 14 tab(s), Refills(s) 0, [facility], cm, 07/10/23 16:20:00 EST, Height/Length Dosing, 94.6, kg, 07/10/23 16:20:00 EST, Weight Dosing methylPREDNISolone, = 1 packet(s), Oral, As Directed, as directed on package labeling, X 6 day(s), # 21 tab(s), Refills(s) 0, [facility], cm, 07/10/23 16:20:00 EST, Height/Length Dosing, 94.6, kg, 07/10/23 16:20:00 EST, Weight Dosing 3. BMI 37.0-37.9, adult (Z68.37: Body mass index [BMI] 37.0-37.9, adult) BMI education complete Ordered: amoxicillin-clavulanate, = 1 tab(s), Oral, q12hr, X 7 day(s), # 14 tab(s), Refills(s) 0, [facility] 158, cm, 07/10/23 16:20:00 EST, Height/Length Dosing, 94.6, kg, 07/10/23 16:20:00 EST, Weight Dosing methylPREDNISolone, = 1 packet(s), Oral, As Directed, as directed on package labeling, X 6 day(s), # 21 tab(s), Refills(s) 0, [facility] 158, cm, 07/10/23 16:20:00 EST, Height/Length [...] Recorded diphtheria/pertussis, acel/tetanus adult 01/10/2019 Recorded Normal [facility] Comment on above: Result Comment: Elec tronically Signed By: Génesis Ruano\\.niles\\Date and Time Signed: 07/10/23 16:44 EST Consent for Procedure/Surger yon 07-08-2023 Consent for Procedure/Surgery [id number]#1.00TIFF Normal [facility] Ambulatory Visit Summaryon 0 07-04-2023 Ambulatory Visit [...] PM EDT With: Junior Sinclair MD Where: [facility] [place] Normal [facility] Gastroenterology Office/Clin ic Noteon 07-04-2023 Gastroenterology Office/Clinic Note Chief Complaint ref by meme CAGLE and RUQ pain HPI Staff Patient is a 52 year old male who was referred by Yahir for CAGLE. Denies recent imaging or previous EGD/Colonoscopy. Denies fhx of colon ca C/o RUQ abdominal pain, comes and goes, very mild. US RUQ 06/29/22 @ [facility]: IMPRESSION: 1. Increased echogenicity of liver consistent [...] gm/dL (05/07/23) TSH 1.89 Liver workup at [facility] 02/18/23 - all negative. History of Present Illness used to drink 4-6 beers a day, slowed down 1 year ago 10 beers a week Had fibroscan 02/2023 at [facility]: CAP 263, E 7.8 kPa Had [...] OP Consult New/Estab Pt Moderate 40 Min 14270 3. Chronic GERD (K21.9: Gastro-esophageal reflux disease without esophagitis) Minimal, as controlled with symptoms, given the use of alcohol in the past I would rather to do EGD to screen for Sinclair's esophagus Ordered: Colonoscopy (Hospital Procedure) EGD Endoscopy (Hospital Procedure) OP Consult New/Estab Pt Moderate 40 Min 80348 4. Screening for colon cancer Average risk, [...] diphtheria/pertussis, acel/tetanus adult 01/10/2019 Recorded Normal [facility] Comment on above: Result Comment: Elec tronically Signed By: Chirag PRABHAKAR, Sarah Barajas\\.niles\\Date and Time Signed: 07/04/23 15:25 EST Ambulatory [...] PM EDT With: Junior Sinclair MD Where: [facility] [place] Normal [facility] CMPon 05-07-2023 Albumin [Mass/Vol] 4.2 g/dL Normal 3.3-5.0 [facility] Comment on above: Performed By: #### 2 235250, [id number], [id number] ####[facility] [address] [place] [address] Albumin/Globulin (S) [Mass conc ratio] 1.3 Normal 1.1-2.2 [facility] Comment on above: Performed By: #### 2 712418, [id number], [id number] ####[facility] [address] [place] [address] ALP [Catalytic activity/Vol] 63 Int._Unit/L Normal 21-98 [facility] Comment on above: Performed By: #### 2 021647, [id number], 19756654 ####[facility] [address] [place] [address] ALT No additional P-5'-P [Catalytic activity/Vol] 44 Int._Unit/L Normal 6-46 [facility] Comment on above: Performed By: #### 2 437468, [id number], 34443284 ####[facility] [address] [place] [address] Anion gap [Moles/Vol] 12 mmol/L Normal 6-16 [facility] Comment on above: Performed By: #### 2 373841, 22139164, [id number] ####[facility] [address] [place] [address] AST [Catalytic activity/Vol] 38 Int._Unit/L Normal 5-43 [facility] Comment on above: Performed By: #### 2 741682, 03422701, 55850661 ####[facility] [address] [place] [address] Bilirubin [Mass/Vol] 0.6 mg/dL Normal 0.0-1.1 [facility] Comment on above: Performed By: #### 2 572026, 12686479, [id number] ####[facility] [address] [place] [address] Calcium [Mass/Vol] 9.6 mg/dL Normal 8.9-11.1 [facility] Comment on above: Performed By: #### 2 053575, 35502861, 38540166 ####[facility] [address] [place] [address] Chloride [Moles/Vol] 101 mmol/L Normal 101-111 [facility] Comment on above: Performed By: #### 2 433379, 31787204, 69223411 ####[facility] [address] [place] [address] CO2 [Moles/Vol] 28 mmol/L Normal 21-31 [facility] Comment on above: Performed By: #### 2 431626, 35711814, 30182642 ####[facility] [address] [place] [address] Creatinine [Mass/Vol] 1.0 mg/dL Normal 0.5-1.3 [facility] Comment on above: Performed By: #### 2 594817, 37801940, 55666939 ####[facility] [address] [place] [address] Globulin (S) [Mass/Vol] 3.2 g/dL Normal 1.4-4.0 [facility] Comment on above: Performed By: #### 2 231274, 76357697, 08316843 ####[facility] [address] [place] [address] Glucose [Mass/Vol] 98 mg/dL Normal 55-199 [facility] Comment on above: Result Comment: If t his glucose result represents a fasting glucose, interpretation should refer to the following reference range: 55-99 mg/dL Performed By: #### 2 644341, 07500931, 64227768 ####[facility] [address] [place] [address] Potassium [Moles/Vol] 4.3 mmol/L Normal 3.5-5.3 [facility] Comment on above: Performed By: #### 2 521683, 13215918, 83064646 ####[facility] [address] [place] [address] Protein [Mass/Vol] 7.4 g/dL Normal 6.0-7.8 [facility] Comment on above: Performed By: #### 2 773463, 95810907, 12854315 ####[facility] [address] [place] [address] Sodium [Moles/Vol] 137 mmol/L Normal 135-145 [facility] Comment on above: Performed By: #### 2 295984, 55239228, 71403013 ####[facility] [address] [place] [address] Urea nitrogen [Mass/Vol] 10 mg/dL Normal 5-21 [facility] Comment on above: Performed By: #### 2 701042, 34216386, 78412435 ####[facility] [address] [place] [address] Urea nitrogen/Creatinin e [Mass ratio] 10 No Units Normal 10-20 [facility] Comment on above: Performed By: #### 2 533517, 47005780, 79388552 ####[facility] [address] [place] [address] Nurse Consultation Noteon Nurse Consultation Note Reason [...] Recorded diphtheria/pertussis, acel/tetanus adult 01/10/2019 Recorded Normal [facility] TSH With T4fr Reflexon 05-07 TSH Qn 1.89 m[IU]/L Normal 0.34-5.60 [facility] Comment on above: Performed By: #### 2 886092, 24175714, 32891233 ####[facility] [address] [place] [address] eGFRon 05-07-2023 GFR/1.73 sq M.predicted among non-blacks MDRD (S/P/Bld) [Vol rate/Area] 90 mL/min/1.73 m2 Normal >=59 [facility] Comment on above: Order Comment: Order added by Discern Expert. Result Comment: Family Protection Specialist kirit kidney disease could be indicated at eGFR's of less than 60 mL/min/1.73m2. Kidney failure is indicated at less than 15 mL/min/1.73m2. Performed By: #### 2 204869, 29887029, 31143047 ####[facility] [address] [place] [address] Ambulatory Visit Summaryon 06-29-2022 Ambulatory Visit Summary ADARSH SCHAFER :1970 [...] EDT With: Yahir PRABHAKAR, Junior Salcedo Where: [facility] Medicine Office/Clini c Noteon 04-29-2023 Family Medicine Office/Clinic Note HPI Staff Adarsh is a 52 year old male presenting to discuss lab results re: his CAGLE Labs done Feb 2023 at [facility] unknown dr ordered them Sees Dr [...] Recorded diphtheria/pertussis, acel/tetanus adult 01/10/2019 Recorded Normal [facility] Comment on above: Result Comment: Elec tronically Signed By: Yahir PRABHAKAR, Junior Flores.br\\Date and Time Signed: 04/29/23 15:47 EST Patient [...] numbers. This can be done either in [place] ([place] or metric measurements. Note that charts and online BMI calculators are available to help you find your BMI quickly and easily without having to do these calculations yourself. To calculate your BMI in Romanian (U.S.) measurements: 1. Measure your weight in [...] for Disease Control and Prevention: www.cdc.gov ? [place] [employer]: www.heart.org ? National Heart, Lung, and Blood [place]: www.nhlbi.nih.gov Summary ? Body mass index (BMI) is a number that is calculated from a person's weight and height. ? BMI may help estimate how much of a person's weight is composed of fat. BMI can help identify those who may be at higher risk for certain medical problems. ? BMI can be measured using Romanian measurements or metric measurements. ? BMI charts are used to identify whether you are underweight, normal weight, overweight, or obese. This information is not intended to replace advice given to you by your health care provider. Make sure you discuss any questions you have with your health care provider. Document Revised: 02/17/2020 Document Reviewed: 12/25/2019 Elsevier Patient Education ? 2022 [employer]. [facility] US SINGLE QUAD RT UPPERon US SINGLE [...] HARSHIL AVILES Date: 2022-06-29 07:54 Normal [facility] HEPATITIS PANEL, ACUTEon HBsAg Screen Negative Normal Negative [facility] Comment on above: Performed By: #### H EPACUT #### [facility] [address] [place] [address] Dr. Raul Zaidi HCV AB <0.1 Normal 0.0-0.9 [facility] Comment on above: Performed By: #### H EPACUT #### [facility] [address] [place] [address] [address] Raul Zaidi Hep A Ab, IgM Negative Normal Negative [facility] Comment on above: Performed By: #### H EPACUT #### [facility] [address] [place] [address] [address] Raul Zaidi Hep B Core Ab, IgM Negative Normal Negative [facility] Comment on above: Performed By: #### H EPACUT #### [facility] [address] [place] [address] [address] Raul Zaidi Interpretation: Comment Normal [facility] Comment on above: Result Comment: Nega tive Not infected with HCV, unless recent infection is suspected or other evidence exists to indicate HCV infection. Performed By: #### H EPACUT #### [facility] [address] [address] [address] Raul Zaidi CBC AUTO DIFFon 06-05-2022 BASO # 0.0 103/ul Normal 0.0-0.1 [facility] Comment on above: Performed By: #### C BC #### [facility] [address] [address] [address] Raul Zaidi Basophils/100 WBC (Bld) 0.5 % Normal 0.2-2.0 [facility] Comment on above: Performed By: #### C BC #### [facility] [address] [address] [address] Raul Zaidi EO # 0.1 103/ul Normal 0.0-0.7 [facility] Comment on above: Performed By: #### C BC #### [facility] [address] [address] [address] Raul Zaidi Eosinophils/100 WBC (Bld) 1.2 % Normal 0.9-7.0 [facility] Comment on above: Performed By: #### C BC #### [facility] [address] [address] [address] Raul Zaidi Erythrocyte distribution width (RBC) [Ratio] 13.0 % Normal 11.0-15.0 [facility] Comment on above: Performed By: #### C BC #### [facility] [address] [address] [address] Raul Zaidi Hematocrit (Bld) [Volume fraction] 41.9 % Critically low 42.0-54.0 [facility] Comment on above: Performed By: #### C BC #### [facility] [address] [address] [address] Raul Zaidi Hemoglobin (Bld) [Mass/Vol] 14.3 g/dL Normal 14.0-18.0 [facility] Comment on above: Performed By: #### C BC #### [facility] [address] [address] [address] Raul Zaidi IG # 0.06 10e3/ul Critically high 0.00-0.03 [facility] Comment on above: Performed By: #### C BC #### [facility] [address] [place] [address] Dr. Raul Zaidi IG % 0.8 % Critically high 0.0-0.5 [facility] Comment on above: Performed By: #### C BC #### [facility] [address] [place] [address] Dr. Raul Zaidi LYMPH # 1.6 103/ul Normal 1.2-3.8 [facility] Comment on above: Performed By: #### C BC #### [facility] [address] [place] [address] Dr. Raul Zaidi Lymphocytes/100 WBC (Bld) 20.9 % Normal 20.5-60.0 [facility] Comment on above: Performed By: #### C BC #### [facility] [address] [place] [address] Dr. Raul Zaidi MANUAL DIFF REQ NO Normal [facility] Comment on above: Performed By: #### C BC #### [facility] [address] [place] [address] Dr. Raul Zaidi MCH (RBC) [Entitic mass] 31.5 pg Normal 25.9-34.0 [facility] Comment on above: Performed By: #### C BC #### [facility] [address] [place] [address] Dr. Raul Zaidi MCHC (RBC) [Mass/Vol] 34.1 g/dL Normal 29.9-35.2 [facility] Comment on above: Performed By: #### C BC #### [facility] [address] [place] [address] Dr. Raul Zaidi MCV (RBC) [Entitic vol] 92.3 fL Normal 80.0-94.0 [facility] Comment on above: Performed By: #### C BC #### [facility] [address] [place] [address] Dr. Raul Zaidi MONO # 0.7 103/ul Normal 0.3-0.8 [facility] Comment on above: Performed By: #### C BC #### [facility] [address] [place] [address] Dr. Raul Zaidi Monocytes/100 WBC (Bld) 9.3 % Normal 1.7-12.0 [facility] Comment on above: Performed By: #### C BC #### [facility] [address] [place] [address] Dr. Raul Zaidi NEUT # 5.2 103/ul Normal 1.4-6.5 [facility] Comment on above: Performed By: #### C BC #### [facility] [address] [place] [address] Dr. Raul Zaidi Neutrophils/100 WBC (Bld) 67.3 % Normal 43.0-75.0 [facility] Comment on above: Performed By: #### C BC #### [facility] [address] [place] [address] Dr. Raul Zaidi Platelet mean volume (Bld) [Entitic vol] 8.4 fL Critically low 9.5-13.5 [facility] Comment on above: Performed By: #### C BC #### [facility] [address] [place] [address] Dr. Raul Zaidi PLT 243 103/ul Normal 150-450 [facility] Comment on above: Performed By: #### C BC #### [facility] [address] [place] [address] Dr. Raul Zaidi RBC 4.54 106/ul Critically low 4.70-6.10 [facility] Comment on above: Performed By: #### C BC #### [facility] [address] [place] [address] Dr. Raul Zaidi WBC 7.7 103/ul Normal 4.0-11.0 [facility] Comment on above: Performed By: #### C BC #### [facility] [address] [place] [address] Dr. Raul Zaidi LIPID PROFILEon 06-05-2022 CHOL-HDL RATIO NORM SEE BELOW Normal [facility] Comment on above: Result Comment: 3.3 - 4.4 LOW RISK 4.4 - 7.1 AVERAGE RISK 7.1 - 11.0 MODERATE RISK >11.0 HIGH RISK Performed By: #### L IPID, CMP #### [facility] [address] [address] [address] Raul Zaidi Cholesterol [Mass/Vol] 225 mg/dL Critically high <=200 [facility] Comment on above: Performed By: #### L IPID, CMP #### [facility] [address] [address] [address] Raul Zaidi Cholesterol in HDL [Mass/Vol] 97 mg/dL Critically high 40-60 [facility] Comment on above: Performed By: #### L IPID, CMP #### [facility] [address] [address] [address] Raul Zaidi Cholesterol in LDL [Mass/Vol] 113.2 mg/dL Normal [facility] Comment on above: Performed By: #### L IPID, CMP #### [facility] [address] [address] [address] Raul Zaidi Cholesterol.total/ Cholesterol in HDL [Mass ratio] 2.3 {ratio} Normal [facility] Comment on above: Performed By: #### L IPID, CMP #### [facility] [address] [address] [address] Raul Zaidi HDL NORMAL > or = 60 mg/dl - LO W CARDIOVASCULAR RISK <40 mg/dl - HIGH CARDIOVASCULAR RISK Normal [facility] Comment on above: Performed By: #### L IPID, CMP #### [facility] [address] [address] [address] Raul Zaidi LDL CALC NORMAL SEE BELOW Normal [facility] Comment on above: Result Comment: <100 mg/dl OPTIMAL 100 - 129 mg/dl NEAR OR ABOVE OPTIMAL 130 - 159 mg/dl BORDERLINE HIGH 160 - 189 mg/dl HIGH >190 mg/dl VERY HIGH Performed By: #### L IPID, CMP #### [facility] [address] [address] [address] Raul Zaidi Triglyceride [Mass/Vol] 74 mg/dL Normal <=150 [facility] Comment on above: Performed By: #### L IPID, CMP #### [facility] [address] [address] [address] Raul Zaidi VLDL CALC 14.8 mg/dL Normal [facility] Comment on above: Performed By: #### L IPID, CMP #### [facility] [address] [place] [address] Dr. Raul Zaidi PROF 14(COMP METB)on 022 Albumin [Mass/Vol] 4.0 g/dL Normal 3.4-5.0 [facility] Comment on above: Performed By: #### L IPID, CMP #### [facility] [address] [place] [address] Dr. Raul Zaidi Albumin/Globulin [Mass ratio] 0.9 {ratio} Normal [facility] Comment on above: Performed By: #### L IPID, CMP #### [facility] [address] [place] [address] Dr. Raul Zaidi ALP [Catalytic activity/Vol] 57 U/L Normal 46-116 [facility] Comment on above: Performed By: #### L IPID, CMP #### [facility] [address] [place] [address] Dr. Raul Zaidi ALT [Catalytic activity/Vol] 82 U/L Critically high 16-63 [facility] Comment on above: Performed By: #### L IPID, CMP #### [facility] [address] [place] [address] Dr. Raul Zaidi Anion gap [Moles/Vol] 14.9 mmol/L Normal [facility] Comment on above: Performed By: #### L IPID, CMP #### [facility] [address] [place] [address] Dr. Raul Zaidi AST [Catalytic activity/Vol] 76 U/L Critically high 15-37 [facility] Comment on above: Performed By: #### L IPID, CMP #### [facility] [address] [place] [address] Dr. Raul Zaidi Bilirubin [Mass/Vol] 0.9 mg/dL Normal 0.2-1.0 [facility] Comment on above: Performed By: #### L IPID, CMP #### [facility] [address] [place] [address] Dr. Raul Zaidi Calcium [Mass/Vol] 9.3 mg/dL Normal 8.5-10.1 [facility] Comment on above: Performed By: #### L IPID, CMP #### [facility] [address] [place] [address] Dr. Raul Zaidi Chloride [Moles/Vol] 99 mmol/L Normal 98-107 [facility] Comment on above: Performed By: #### L IPID, CMP #### [facility] [address] [place] [address] Dr. Raul Zaidi CO2 [Moles/Vol] 28.4 mmol/L Normal 21.0-32.0 [facility] Comment on above: Performed By: #### L IPID, CMP #### [facility] [address] [place] [address] Dr. Raul Zaidi Creatinine [Mass/Vol] 0.72 mg/dL Normal 0.70-1.30 [facility] Comment on above: Performed By: #### L IPID, CMP #### [facility] [address] [place] [address] Dr. Raul Zaidi EGFR-AF URUGUAYAN >60 Normal >=60 [facility] Comment on above: Performed By: #### L IPID, CMP #### [facility] [address] [place] [address] Dr. Raul Zaidi EGFR-NON AF URUGUAYAN >60 Normal >=60 [facility] Comment on above: Performed By: #### L IPID, CMP #### [facility] [address] [place] [address] Dr. Raul Zaidi Globulin (S) [Mass/Vol] 4.3 g/dL Normal [facility] Comment on above: Performed By: #### L IPID, CMP #### [facility] [address] [place] [address] Dr. Raul Zaidi Glucose [Mass/Vol] 83 mg/dL Normal 74-106 [facility] Comment on above: Performed By: #### L IPID, CMP #### [facility] [address] [place] [address] Dr. Raul Zaidi Potassium [Moles/Vol] 4.3 mmol/L Normal 3.5-5.1 [facility] Comment on above: Performed By: #### L IPID, CMP #### [facility] [address] [place] [address] Dr. Raul Zaidi Protein [Mass/Vol] 8.3 g/dL Critically high 6.4-8.2 [facility] Comment on above: Performed By: #### L IPID, CMP #### [facility] [address] [address] [address] Raul Zaidi Sodium [Moles/Vol] 138 mmol/L Normal 136-145 [facility] Comment on above: Performed By: #### L IPID, CMP #### [facility] [address] [place] [address] Dr. Raul Zaidi Urea nitrogen [Mass/Vol] 5.0 mg/dL Critically low 7.0-18.0 [facility] Comment on above: Performed By: #### L IPID, CMP #### [facility] [address] [place] [address] Dr. Raul Zaidi Urea nitrogen/Creatinin e [Mass ratio] 6.9 mg/mg Normal [facility] Comment on above: Performed By: #### L IPID, CMP #### [facility] [address] [place] [address] Dr. Raul Zaidi Vital Signs Date Time Vital Sign Value Performing Clinician Facility 01-23-2023 14:15-0400 Body height 182.88 cm [facility] Other [facility] Other 01-23-2023 14:15-0400 Body mass index (BMI) [Ratio] 28.95 kg/m2 [facility] [employer] Other [facility] Other 01-23-2023 14:15-0400 Body weight 96.84 kg [facility] Other [facility] Other 08-16-2023 14:15-0400 Diastolic blood pressure 84 mm[Hg] Imad Asaad Other [facility] [id number] | [employer] Other 01-23-2023 14:15-0400 Systolic blood pressure 139 mm[Hg] Imad Asaad Other [employer] Other Encounters Encounter Date Encounter Type Care Provider Facility Start: 07-22-2024 ambulatory Junior Sinclair Facility :[facility] Start: 06-09-2024 End: 06-09-2024 [facility]ulatory [facility] Start: 05-18-2024 End: 05-18-2024 ambulatory [facility] Start: 05-13-2024 End: 05-13-2024 ambulatory Junior Sinclair Facility:[facility] Start: 04-06-2024 End: 04-06-2024 ambulatory MD Junior Sinclair Facility:[facility] Start: 02-24-2024 End: 02-24-2024 ambulatory [facility] Start: 01-16-2024 End: 01-16-2024 ambulatory Sarah Beard Facility:[facility] Start: 01-02-2024 End: 01-02-2024 ambulatory Sarah Wilkinsi Facility:[facility] Start: 12-30-2023 End: 12-30-2023 ambulatory Dominique Vo MD Facility: [facility] Start: 12-16-2023 End: 12-16-2023 ambulatory Dominique Vo MD Facility: [facility] Start: 11-11-2023 End: 11-11-2023 ambulatory Dominique Vo MD [facility] Start: 11-01-2023 End: 11-01-2023 ambulatory Sarah Wilkinsi Facility:[facility] Start: 10-28-2023 ambulatory MD Junior Sinclair [facility] Start: 09-30-2023 End: 09-30-2023 ambulatory Dominique Vo MD Facility:[facility] Start: 08-29-2023 End: 08-29-2023 ambulatory MD Junior Sinclair Facility:[facility]ett Start: 07-10-2023 End: 07-10-2023 ambulatory Génesis L Shanika Facility:[facility] [place] [facility] Start: 07-04-2023 End: 07-04-2023 ambulatory Sarah Beard Facility:[facility] Start: 05-14-2023 ambulatory [facility] L [facility] Start: 05-09-2023 ambulatory MD Junior Sinclair Facility :[facility] Start: 05-07-2023 End: 05-07-2023 ambulatory MD Junior Sinclair Facility:[facility] Start: 04-29-2023 End: 04-29-2023 ambulatory MD Junior Sinclair Facility:[facility] Frances christine Start: 02-21-2023 End: 02-21-2023 ambulatory Imad Asaad Facility:[facility] Start: 02-21-2023 End: 02-21-2023 ambulatory MD Junior Sinclair Work Phone: [facility] Work Phone: Start: 02-21-2023 End: 02-21-2023 Patient encounter procedure MD Junior Sinclair Work Phone: [facility] Work Phone: Start: 01-23-2023 End: 01-23-2023 ambulatory Imad Asaad Other [facility] [id number] | [employer] Other Start: 01-23-2023 Office outpatient ne w 45 minutes Imad Asaad [facility] Start: 06-29-2022 End: 06-30-[address] ANA ROSADO . Facility: Start: 06-19-2022 End: 06-20-[address] ANA ROSADO . Facility:[facility] Start: 06-08-2022 Encounter for genera l adult medical examination without abnormal findings DR ANA ROSADO . [facility] Start: 06-05-2022 End: 06-06-[address] [...] above: Performed By: #### P SAD #### [facility] [address] [address] [address] Raul Zaidi Plan of Treatment Date Care Activity Detail Author Start: 02-21-2023 [facility] Immunizations Immunization Date Immunization Notes Care Provider Fa cility 01-10-2019 tetanus toxoid, redu damaris diphtheria toxoid, and acellular pertussis vaccine, adsorbed MD Junior Sinclair Work Phone: [facility] Payers Date Payer Category Payer Unknown [id number] 2023 Unknown 2023 Self-pay [id number] 1970 Unknown [id number] 2.16.84 0.1.490948.3.579.2.593 1969 Unknown [id number] 2.16.84 0.1.235603.3.579.2.593 1969 Unknown [id number] 2.16.84 0.1.410876.3.579.2.593 1969 Unknown [id number] 2.16.8 40.1.579094.3.579.2.727 1969 Unknown [id number] 2.16.8 40.1.956038.3.579.2.727 1969 Unknown [id number] 2.16.8 40.1.148571.3.579.2.727 1969 Unknown [id number] 2.16.8 40.1.294051.3.579.2.727 1969 Unknown [id number] 2.16.8 40.1.044229.3.579.2.727 1969 Unknown [id number] 2.16.8 40.1.999827.3.579.2.727 1969 Unknown [id number] 2.16.8 40.1.900764.3.579.2. 1969 Unknown [id number] 2.16.8 40.1.993498.3.579.2.72 1969 Unknown [id number] 2.16.8 40.1.991197.3.579.2. 1969 Unknown [id number] 2.16.8 40.1.462360.3.579.2. 1969 Unknown [id number] 2.16.8 40.1.052360.3.579.2. 1969 Unknown [id number] 2.16.8 40.1.569731.3.579.2. 1969 Unknown [id number] 2.16.8 40.1.048344.3.579.2. 1969 Unknown [id number] 2.16.8 40.1.692128.3.579.2.7 1969 Unknown [id number] 2.16.8 40.1.009492.3.579.2. 1969 Unknown [id number] 2.16. 840.1.693596.3.579.2. 1969 Unknown [id number] 2.16 840.1.681130.3.579.2. 1969 Unknown [id number] 2.16. 840.1.950212.3.579.2. 1969 Unknown [id number] 2.16 840.1.701128.3.579.2. 1969 Unknown [id number] 2.16. 840.1.143302.3.579.2.196 1969 Unknown [id number] 2.16. 840.1.068688.3.579.2.196 1969 Unknown [id number] 2.16.8 40.1.511795.3.579.2.727 1969 Unknown [id number] 2.16.8 40.1.506257.3.579.2.727 1969 Unknown [id number] 2.16.8 40.1.256116.3.579.2.727 1959 Unknown [id number] Unknown [id number] 2.16.8 40.1.607791.3.579.2.531 Social History Date Type Detail Facility Sex Assigned At [facility] Other [facility]: [facility]10-[facility] Start: 1970 Sex Assigned At Male [facility] Goals Date Patient Goal Desired Activity /State Clinical Note 06-09-2024 Note Date & Type Note Facility 06-09-2024 Note Nurse Consultation N ote Reason for Visit Pt presents today for lab draw Assessment/Plan 1. Fatty liver (K76.0: Fatty (change of) liver, not elsewhere classified) 2. Hyponatremia (E87.1: Hypo-osmolality and hyponatremia) Medications levothyroxine 175 mcg (0.175 mg) Tab, See Instructions, 1 refills metoprolol succinate 25 mg ER Tab, 25 mg= 1 tab(s), Oral, Daily Allergies OXcarbazepine (Unknown) Pollen (Unknown) Zoloft (Unknown) Immunizations Vaccine Date Status Comments influenza virus vaccine, inactivated - Not Given Patient Refuses SARS-CoV-2 (COVID-19) mRNA BNT-162b2 vax 09/13/2020 Recorded SARS-CoV-2 (COVID-19) mRNA BNT-162b2 vax 08/22/2020 Recorded diphtheria/pertussis, acel/tetanus adult 01/10/2019 Recorded [facility] Clinical Note 05-13-2024 Note Date & Type Note Facility 05-13-2024 Note Nurse Consultation N ote Reason for Visit Pt here today for lab draw Medications levothyroxine 175 mcg (0.175 mg) Tab, See Instructions, 1 refills metoprolol succinate 25 mg ER Tab, 25 mg= 1 tab(s), Oral, Daily Allergies OXcarbazepine (Unknown) Pollen (Unknown) Zoloft (Unknown) Immunizations Vaccine Date Status Comments influenza virus vaccine, inactivated - Not Given Patient Refuses SARS-CoV-2 (COVID-19) mRNA BNT-162b2 vax 09/13/2020 Recorded SARS-CoV-2 (COVID-19) mRNA BNT-162b2 vax 08/22/2020 Recorded diphtheria/pertussis, acel/tetanus adult 01/10/2019 Recorded [facility] Clinical Note 04-06-2024 Note Date & Type Note Facility 04-06-2024 Note Patient Education Cardiovascular Hypertension, Adult High blood [...] risk factors are under your control, including: ??? Smoking. ??? Not getting enough exercise or physical activity. ??? Being overweight. ??? Having too much fat, sugar, calories, or salt (sodium) in your diet. ??? Drinking too much alcohol. Other risk factors include: ??? Having a personal history of heart disease, diabetes, high cholesterol, or kidney disease. ??? Stress. ??? Having a family history of high blood pressure and high cholesterol. ??? Having obstructive sleep apnea. ??? Age. The risk increases with age. What are the signs or symptoms? High blood pressure may not cause symptoms. Very high blood pressure (hypertensive crisis) may cause: ??? Headache. ??? Fast or irregular heartbeats (palpitations). ??? Shortness of breath. ??? Nosebleed. ??? Nausea and vomiting. ??? Vision changes. ??? Severe chest pain, dizziness, and seizures. How [...] risk factors, you may be asked to: ??? Return on a different day to have your blood pressure checked again. ??? Monitor your blood pressure at home for [...] your blood pressure under control and if: ??? Your systolic blood pressure is above 130. ??? Your diastolic blood pressure is above 80. Your personal target blood pressure may vary depending on your medical conditions, your age, and other factors. Follow these instructions at home: Eating and drinking ??? Eat a diet that is high in [...] higher in sodium, added sugar, and fat. ??? Reduce your daily sodium intake. Many people with hypertension should eat less than 1,500 mg of sodium a day. ??? Do not drink alcohol if: ? Your health care provider tells you not to drink. ? You are , may be , or are planning to become . ??? If you drink alcohol: ? Limit how much you have to: ? 0?1 drink a day for women. ? 0?2 drinks a day for men. ? Know how much alcohol is in your drink. In the [place] one drink equals one 12 oz bottle (more content not included)... [facility] History and physical note 11-05-2023 Note Date & Type Note Facility 11-05-2023 Note [id number] [facility] Clinical Note 08-29-2023 Note Date & Type [...] - Will do a kenaolg shot Ordered: [facility] External Ambulatory Referral [facility] External Ambulatory Referral 2. Primary hypertension (I10: Essential (primary) hypertension) - At goal. Ordered: [facility] External Ambulatory Referral [facility] External Ambulatory Referral 3. Cervical radiculopathy, chronic (M54.12: Radiculopathy, cervical region) - Will send to pain. - Then will send to Rheum - Will have the patient follow up in 2 months - Unsure if Rheum is necessary, but given other medical hx will have the patient seen. Ordered: [facility] External Ambulatory Referral [facility] External Ambulatory Referral 4. Steatosis, liver (K76.0: Fatty (change of) liver, not elsewhere classified) - Keep following with GI. Ordered: [facility] External Ambulatory Referral [facility] External Ambulatory Referral 5. Cervical arthritis (M47.812: Spondylosis without myelopathy or radiculopathy, cervical region) As per number 3 Ordered: [facility] External Ambulatory Referral Follow-up No qualifying data [...] 08/22/2020 Recorded diphtheria/pertussis, acel/tetanus adult 01/10/2019 Recorded [facility] Comment on above: Result Comment: Elec tronically Signed By: Yahir PRABHAKAR, Junior Salcedo\\.br\\Date and Time Signed: 08/29/23 07:46 EDT Evaluation note 01-23-2023 Note Date & Type Note Facility 01-23-2023 Evaluation note Encounter Date Diagnosis Assessment Notes Jan, Hepatic steatosis (ICD-10 - K76.0) Jan, Elevated liver enzymes (ICD-10 - R74.8) Jan, Other Fibrosc[facility] ordered Labs ordered [facility] Other Evaluation note Note Date & Type Note Facility Evaluation note No assessment information availa [facility] Work Phone: History general Narrative - Reported Note Date & Type Note Facility History general Narrative - Reported Type Medical History anxiety Medical History hypertension Surgical History thyroidectomy Surgical History appendectomy Hospitalization History See Above [facility] Other Summary Purpose Family History No Family [...] content) DATE CREATED AUTHOR 10/22/2022 [facility] DATE CREATED AUTHOR AUTHOR'S ORGANIZ ATION 03/11/2023 [facility] DATE CREATED AUTHOR AUTHOR'S ORGANIZ ATION 04/07/2024 [facility] DATE CREATED AUTHOR AUTHOR'S ORGANIZ ATION 04/09/2024 [facility] DATE CREATED AUTHOR AUTHOR'S ORGANIZ ATION 05/22/2024 [facility] DATE CREATED AUTHOR AUTHOR'S ORGANIZ ATION 05/24/2024 [facility] DATE CREATED AUTHOR AUTHOR'S ORGANIZ ATION 06/10/2024 [facility] DATE CREATED AUTHOR AUTHOR'S ORGANIZ ATION 06/11/2024 [facility] DATE CREATED AUTHOR AUTHOR'S ORGANIZ ATION 06/22/2024 [facility] REASON FOR VISIT (unrecogniz ed section and content) PATIENT IS HERE AT THE REQUE [facility] OF [facility] ROSADO FOR [facility] Care Teams (unrecognized sec tion and content) [...] BASED ON THE PRIMARY CLINICAL RECORDS. [facility] [employer] [facility]. provides no warranty or guarantee of the accuracy or completeness of information in this document."
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
== END 2024-07-15 07:43 | disposition home or self-care (01) ==
LOC: PM 07:45
PROVIDERS: PCP Family Medicine; Visit Provider Nurse Practitioner
DX: M48.02 Spinal stenosis, cervical region (principal); M47.812 Spondylosis without myelopathy or radiculopathy, cervical region; M54.12 Radiculopathy, cervical region
CPT/HCPCS: G0463